=== PATIENT | male | born 1955 | race Caucasian/White ===

== ENCOUNTER 2020-09-01 14:28 | Inpatient (IN) | payer OTHER ==
[2020-09-01] MEDS ORDERED: NA CHLORIDE 0.9% 1,000 ML ONE (15:22)
[2020-09-01 15:25] LABS: Absolute Lymphocytes (CBC) 0.2 K/uL (0.7-4.9); Basophils % 0.2 % (0-1.3); Hematocrit 40.5 % (39.6-49.0); Lymphocytes % 1.3 % (15.3-44.8); MPV 9.2 fL (7.6-11.3)
--- NOTE | 2020-09-01 15:42 | RAD REPORT ---
EXAM DESCRIPTION: RAD - Chest Single View - 09/01/2020 3:32 pm CLINICAL HISTORY: CHEST PAIN Chest pain. COMPARISON: No comparisons FINDINGS: Portable and patient positioning technique limits examination quality. Poorly defined opacities are present in the left lung base which may represent atelectasis or develop ing pneumonia. Lucency beneath the right hemidiaphragm is likely related to interposed bowel. The hea rt is mildly prominent.Dedicated two views of the chest would be useful for better assessment given t he limitations of the study.
[2020-09-01 15:43] LABS: Protime INR 1.02
[2020-09-01 15:47] LABS: BUN Blood Urea Nitrogen 27 mg/dL (7-18); Bicarbonate 19 mmol/L (21-32); Glucose Level 170 mg/dL (74-106); Sodium Level 139 mmol/L (136-145)
[2020-09-01 15:48] LABS: ALT/SGPT 24 U/L (12-78); AST/SGOT 18 U/L (15-37); Albumin 2.7 g/dL (3.4-5.0); Alkaline Phosphatase 98 U/L (45-117); Bilirubin Direct 0.1 mg/dL (0-0.2); Bilirubin Total 0.4 mg/dL (0.2-1.0); Magnesium 1.9 mg/dL (1.8-2.4); NT PRO-BNP 297 pg/mL (<125); Protein, Total 7.2 g/dL (6.4-8.2); Troponin (Emerg Dept Use Only) < 0.02 ng/mL (0.0-0.045)
--- NOTE | 2020-09-01 16:38 | ER ---
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 L side, sharp, ca1 non-radiating, 08/20. Bilateral feet swelling started few days ago. Sinus tach in the monitor worker at 100 HR. BGL 187. Coronavirus screen: Client denies travel out of the [place] in the last 14 days. Client presents with at least one sign or symptom that may indicate coronavirus-19. Standard/surgical mask placed on the client. Provider contacted for isolation considerations. At this time, the client does not indicate any symptoms associated with coronavirus-19. Client reports previous positive COVID test result. Date of collection: August 04, 2020. Ebola Screen: Patient negative for fever greater than or equal to 101.5 degrees Fahrenheit, and additional compatible Ebola Virus Disease symptoms Patient denies exposure to infectious person. Patient denies travel to an Ebola-affected area in the 21 days before illness onset. No symptoms or risks identified at this time. Initial Sepsis Screen: Does the patient meet any 2 criteria? Systolic BP < 90 mmHg. HR > 90 bpm. Does the patient have a suspected source of infection? Yes: Skin breakdown/wound. Risk Assessment: Do you want to hurt yourself or someone else? Patient reports no desire to harm self or others. Onset of symptoms was September 01, 2020. 14:37 Method Of Arrival: EMS: [facility] ca1 14:37 Acuity: BRENDAN 2 ca1 Historical: - Allergies: 14:58 No Known Allergies; ca1 - Home Meds: 14:58 Arginaid oral oral [Active]; ascorbic acid (vitamin C) 500 mg tab [Active]; aspirin 81 ca1 mg Oral chew 1 tab once daily [Active]; Bactrim DS 800-160 mg Oral tab 1 tab 2 times per day [Active]; benzocaine mucous membrane mucous membrane [Active]; docusate sodium 100 mg Oral cap 1 cap once daily [Active]; Flonase 50 mcg/actuation Nasal spsn 2 sprays once daily [Active]; lidocaine patch [Active]; lisinopril 20 mg Oral tab 1 tab once daily [Active]; multivitamin with minerals oral tab [Active]; simvastatin 20 mg Oral tab 1 tab once daily [Active]; tramadol 50 mg Oral tab 1 tab every 8 hours [Active]; acetaminophen 325 mg Oral tab 2 tabs every 6 hours [Active]; zinc lozenges oral oral [Active]; Zofran (as hydrochloride) 4 mg Oral tab 1 tabs every 6 hours [Active]; - PMHx: 14:58 Hypertension; Hyperlipidemia; GERD; Cerebral Palsy; ca1 - Immunization history:: Adult Immunizations up to date. - Social history:: Smoking status: Patient denies any tobacco usage or history of. Screenin:49 Abuse screen: Denies threats or abuse. Denies injuries from another. Nutritional ca1 screening: No deficits noted. Tuberculosis screening: No symptoms or risk factors identified. Fall Risk Secondary diagnosis (15 points) impaired mobility, IV access (20 points). Ambulatory Aid- None/Bed Rest/Nurse Assist (0 pts). Gait- Impaired (20 pts.). Total Sharma Fall Scale indicates High Risk Score (45 or more points). Fall prevention measures have been instituted. Side Rails Up X 2 Frequent Obs/Assessments Occuring Family Present and informed to notify staff if the need to leave the bedside As available patient and family educated on Fall Prevention Program and Strategies. Assessment: 14:40 General: Appears in no apparent distress. uncomfortable, Behavior is calm, cooperative. ca1 Pain: Complains of pain in chest Pain does not radiate. Pain currently is 6 out of 10 on a pain scale. Pain began 30 min ago. Neuro: Level of Consciousness is awake, alert, obeys commands, Oriented to person. Cardiovascular: Heart tones S1 S2 present Capillary refill < 3 seconds Patient's skin is warm and dry. Rhythm is sinus tachycardia. Respiratory: Airway is patent Respiratory effort is even, unlabored, Respiratory pattern is regular, symmetrical, Breath sounds are clear bilaterally. GI: Abdomen is flat, non-distended, Bowel sounds present X 4 quads. Abd is soft and non tender X 4 quads. : No signs and/or symptoms were reported regarding the genitourinary system. EENT: No signs and/or symptoms were reported regarding the EENT system. Derm: Skin is thin, with poor turgor Pt has reddish scaly skin all over. States, "I have this all my life" Wound noted lateral side of left heel. Musculoskeletal: Circulation, motion, and sensation intact. Capillary refill < 3 seconds, Swelling present in right foot and left foot Contractures on isabell. feet and knees, bilateral wrist and elbows. 14:40 Reassessment: Called [facility] regarding pt HX of Covid. Nurse states, "pt ca1 tested for Covid , resulted positive 08/05/2020. Was in the Covid unit for 20 days, and was just discharged a week ago". Notified provider. Placed pt on Droplet Precaution. 15:45 Reassessment: Patient appears in no apparent distress at this time. No changes from ca1 previously documented assessment. Patient and/or family updated on plan of care and expected duration. Pain level reassessed. 16:35 Reassessment: Patient appears in no apparent distress at this time. No changes from ca1 previously documented assessment. Patient and/or family updated on plan of care and expected duration. Pain level reassessed. 17:00 Reassessment: Attempted to do straight cath F18 for Urine specimen. Resistance noted, ca1 unsuccessful. Hospitalist Dr. Smith at bedside, JORDAN Carrizales. Attempted to insert Carrizales Cath F16, resistance noted, unsuccessful. Dr. Smith at bedside notified. Dr. Smith states, "just don't do it now, we will do it upstairs". 17:40 Reassessment: Pt in radiology at this time. ca1 18:38 Reassessment: Patient appears in no apparent distress at this time. No changes from ca1 previously documented assessment. Patient and/or family updated on plan of care and expected duration. Pain level reassessed. Pt back from radiology. 19:12 Reassessment: BP low, notified provider. Instructed to do Manual BP, manual at 80/50. dm5 Notified provider. Remigio ORTEGA to give another NS 1L bolus, monitor BP q 10 then will insert central line if BP trends down. 19:36 Reassessment: Patient appears in no apparent distress at this time. No changes from ca1 previously documented assessment. Patient and/or family updated on plan of care and expected duration. Pain level reassessed. 20:35 Reassessment: Patient appears in no apparent distress at this time. No changes from ca1 previously documented assessment. Patient and/or family updated on plan of care and expected duration. Pain level reassessed. 09/02 00:15 Reassessment: Patient and/or family updated on plan of care and expected duration. Pain ea level reassessed. Report given Felipa AYERS. Pt admitted to ICU covid unit. Vital Signs: 09/01 14:37 BP 89 / 58; Pulse 105; Resp 20; Temp 99.3(O); Pulse Ox 94% on R/A; Weight 49.9 kg (R); ca1 Pain 08/20; 14:48 BP 95 / 58; Pulse 111; Resp 20 S; Pulse Ox 95% on R/A; ca1 15:45 BP 95 / 67; Pulse 110; Resp 20; Pulse Ox 94% on R/A; ca1 16:26 BP 90 / 65; Pulse 106; Resp 20 S; Pulse Ox 97% on R/A; ca1 17:11 BP 110 / 71; Pulse 108; Resp 21; Pulse Ox 98% on R/A; ca1 18:38 BP 91 / 62; Pulse 106; Resp 16 S; Pulse Ox 99% on R/A; ca1 18:45 BP 84 / 59; Pulse 106; Resp 18 S; Pulse Ox 98% on R/A; dm5 18:55 BP 86 / 62; Pulse 115; Resp 21 S; Pulse Ox 98% on R/A; dm5 19:01 BP 87 / 62; Pulse 105; Resp 20 S; Pulse Ox 96% on R/A; ca1 19:36 BP 123 / 66; Pulse 118; Resp 14 S; Pulse Ox 94% on R/A; ca1 19:45 BP 103 / 79; Pulse 111; Resp 18 S; Pulse Ox 95% on R/A; ca1 19:55 BP 82 / 54; Pulse 110; Resp 20 S; Pulse Ox 95% on R/A; ca1 20:10 BP 83 / 57; Pulse 110; Resp 17 S; Pulse Ox 97% on R/A; ca1 20:24 BP 98 / 62; Pulse 111; Resp 19 S; Pulse Ox 94% on R/A; ca1 ED Course: 14:37 Patient arrived in ED. em1 14:38 Remigio Cotton PA is PHCP. [facility] 14:38 Kumar Solano MD is Attending Physician. jmm 14:40 No provider procedures requiring assistance completed. Patient admitted, IV remains in ca1 place. 14:42 Sunni Browne, RN is Primary Nurse. ca1 14:45 Triage completed. ca1 14:46 Arm band placed on right wrist. ca1 14:47 Patient has correct armband on for positive identification. Placed in gown. Bed in low ca1 position. Call light in reach. Side rails up X2. phototypesetting equipment monitor on. Pulse ox on. NIBP on. Warm blanket given. 14:47 EKG done, by ED staff, reviewed by Kumar Solano MD. 5 15:15 Lactate Sent. 5 15:15 Procalcitonin Sent. 5 15:15 Basic Metabolic Panel Sent. 5 15:15 Blood Culture Adult (2) Sent. 5 15:15 CBC with Diff Sent. 5 15:15 LFT's Sent. 5 15:15 Magnesium Sent. 5 15:15 NT PRO-BNP Sent. 5 15:15 Initial lab(s) drawn, by ar, sent to lab. First set of blood cultures drawn by ar, [facility] Second set of blood cultures drawn by lab staff. 15:16 PT-INR Sent. 5 15:16 Troponin (emerg Dept Use Only) Sent. 5 15:16 Inserted saline lock: 22 gauge in left antecubital area, using aseptic technique. Blood 5 collected. 15:33 XRAY Chest (1 view) In Process Unspecified. EDMS 16:35 Inserted saline lock: 22 gauge in right forearm, using aseptic technique. ca1 16:37 Rico Smith is Hospitalizing Provider. jmm 17:25 Royer Cline MD is Hospitalizing Provider. jmm 18:21 Notified Nurse Practitioner and/or Physician Moving Picture Operator of a critical lab result(s), ca1 D-dimer 65111. 20:13 Notified Nurse Practitioner and/or Physician Moving Picture Operator of a critical lab result(s), ca1 Lactate Rpt 7.1. 20:37 Report given to ARMEN Mcmahon. ca1 09/02 01:47 Attending Physician role handed off by Kumar Solano MD rv 01:47 PHCP role handed off by Remigio Cotton PA rv 01:47 Primary Nurse role handed off by Sunni Browne, ARMEN rv Administered Medications: 09/01 15:16 Drug: NS 0.9% 1000 ml Route: IV; Rate: 1 bolus; Site: left forearm; ca1 16:15 Follow up: Response: No adverse reaction; IV Status: Completed infusion; IV Intake: ca1 1000ml 16:35 Not Given (Duplicate Order): AZITHromycin 500 mg PO once jmm 16:36 Not Given (Duplicate Order): Rocephin - (cefTRIAXone) 1 grams IVPB once over 30 mins; alfredo (mix in 50 mL NS) 16:37 Drug: LevaQUIN 750 mg Volume: 150 ml; Route: IVPB; Infused Over: 90 mins; Site: right ca1 forearm; 22:22 Follow up: IV Status: Completed infusion; IV Intake: 150ml rv 16:38 Drug: NS 0.9% 500 ml Route: IV; Rate: bolus; Site: right forearm; ca1 20:15 Follow up: IV Status: Completed infusion; IV Intake: 500ml ca1 19:11 Drug: NS 0.9% 1000 ml Route: IV; Rate: 1 bolus; Site: right forearm; dm5 22:23 Follow up: IV Status: Completed infusion; IV Intake: 1000ml rv 20:26 Drug: Lovenox 50 mg Route: Sub-Q; Site: right lower abdomen; ca1 22:22 Follow up: Response: No adverse reaction rv 20:54 Drug: vancoMYCIN 1 grams Route: IVPB; Infused Over: 2 hrs; Site: right forearm; ca1 22:22 Follow up: IV Status: Completed infusion; IV Intake: 250ml rv Intake: 16:15 IV: 1000ml; Total: 1000ml. ca1 20:15 IV: 500ml; Total: 1500ml. ca1 22:22 IV: 250ml; Total: 1750ml. rv 22:22 IV: 150ml; Total: 1900ml. rv 22:23 IV: 1000ml; Total: 2900ml. rv Outcome: 16:37 Decision to Hospitalize by Provider. jmm 22:23 Admitted to ER Hold. Please see [facility] for further documentation. rv 22:23 Condition: good 22:23 Instructed on the need for admit. 09/02 01:27 Patient left the ED. casey 02:10 Patient left the ED. rv Signatures: Dispatcher [employer] Natalie Pepper, RN RN dm5 Remigio Cotton PA PA jmm Ballard, Brenda, RN RN bb Martinez, Guerrero em1 Francesco, Sandrita 5 Yaneli Apodaca RN Reece Puente ea, RN ARMEN rv Acob, Sunni RN RN ca1 Corrections: (The following items were deleted from the chart) 09/01 14:48 14:37 Initial Sepsis Screen: Does the patient meet any 2 criteria? No. Patient's ca1 initial sepsis screen is negative. Does the patient have a suspected source of infection? No. Patient's initial sepsis screen is negative. ca1 14:48 14:37 Pulse 105bpm; Resp 20bpm; Pulse Ox 94% RA; Temp 99.3F Oral; 49.9 kg Reported; ca1 Pain 10/10; ca1 14:49 14:37 Acuity: BRENDAN 3 ca1 ca1 14:49 14:48 BP 95 / 58; Pulse 111bpm; Resp 21bpm; Pulse Ox 95% RA; ca1 ca1 15:04 14:37 Coronavirus screen: Client denies travel out of the [place] in the last 14 days. At ca1 this time, the client does not indicate any symptoms associated with coronavirus-19. The client reports previous COVID testing was negative. Date of collection: August 2020 ca1 20:38 14:40 Neuro: Level of Consciousness is awake, alert, obeys commands, Oriented to ca1 person, place, ca1 20:38 14:40 Musculoskeletal: Circulation, motion, and sensation intact. Capillary refill < 3 ca1 seconds, Contractures on isabell. feet and knees, bilateral wrist and elbows ca1
--- NOTE | 2020-09-01 16:38 | EDPHYS ---
Physician Documentation [facility] Name: Gabriel Krishnamurthy Age: 65 yrs Sex: Male : 1955 Arrival Date: 09/01/2020 Time: 14:37 Bed 4 Private MD: ED Physician HPI: 09/01 14:46 This 65 yrs old Male presents to ER via EMS with complaints of Chest Pain. [facility] 14:46 The patient or guardian reports chest pain that is located primarily in the substernal [facility] area. Onset: just prior to arrival, today. The pain does not radiate. The chest pain is described as aching, sharp. This is a 65 year old male with a history of cerebral palsy that presents to the ED with complaints of left sided chest pain beginning approx 30 minutes prior to arrival. Patient diagnosed with COVID in late Jul. . Historical: - Allergies: 14:58 No Known Allergies; ca1 - Home Meds: 14:58 Arginaid oral oral [Active]; ascorbic acid (vitamin C) 500 mg tab [Active]; aspirin 81 ca1 mg Oral chew 1 tab once daily [Active]; Bactrim DS 800-160 mg Oral tab 1 tab 2 times per day [Active]; benzocaine mucous membrane mucous membrane [Active]; docusate sodium 100 mg Oral cap 1 cap once daily [Active]; Flonase 50 mcg/actuation Nasal spsn 2 sprays once daily [Active]; lidocaine patch [Active]; lisinopril 20 mg Oral tab 1 tab once daily [Active]; multivitamin with minerals oral tab [Active]; simvastatin 20 mg Oral tab 1 tab once daily [Active]; tramadol 50 mg Oral tab 1 tab every 8 hours [Active]; acetaminophen 325 mg Oral tab 2 tabs every 6 hours [Active]; zinc lozenges oral oral [Active]; Zofran (as hydrochloride) 4 mg Oral tab 1 tabs every 6 hours [Active]; - PMHx: 14:58 Hypertension; Hyperlipidemia; GERD; Cerebral Palsy; ca1 - Immunization history:: Adult Immunizations up to date. - Social history:: Smoking status: Patient denies any tobacco usage or history of. ROS: 14:46 Constitutional: Negative for fever, chills, and weight loss. jmm 14:46 Respiratory: Negative for shortness of breath, cough, wheezing, and pleuritic chest pain, Neuro: Negative for headache, weakness, numbness, tingling, and seizure. 14:46 Constitutional: Positive for 14:46 Cardiovascular: Positive for chest pain. 14:46 All other systems are negative. Exam: 14:46 Head/Face: atraumatic. Eyes: EOMI, no conjunctival erythema appreciated ENT: Moist jmm Mucus Membranes Neck: Trachea midline, Supple Chest/axilla: Normal chest wall appearance and motion. Cardiovascular: Regular rate and rhythm. No edema appreciated Respiratory: Normal respirations, no respiratory distress appreciated Abdomen/GI: Non distended, soft Back: Normal ROM 14:46 Constitutional: The patient appears alert, awake, uncomfortable. 14:46 Musculoskeletal/extremity: bilaterally edema noted to the feet. 14:46 Skin: diffuse erythema noted to the skin with peeling. 14:46 Neuro: Orientation: is normal, Mentation: is normal. 14:46 Psych: Behavior/mood is pleasant, cooperative. Vital Signs: 14:37 BP 89 / 58; Pulse 105; Resp 20; Temp 99.3(O); Pulse Ox 94% on R/A; Weight 49.9 kg (R); ca1 Pain 10/10; 14:48 BP 95 / 58; Pulse 111; Resp 20 S; Pulse Ox 95% on R/A; ca1 15:45 BP 95 / 67; Pulse 110; Resp 20; Pulse Ox 94% on R/A; ca1 16:26 BP 90 / 65; Pulse 106; Resp 20 S; Pulse Ox 97% on R/A; ca1 17:11 BP 110 / 71; Pulse 108; Resp 21; Pulse Ox 98% on R/A; ca1 18:38 BP 91 / 62; Pulse 106; Resp 16 S; Pulse Ox 99% on R/A; ca1 18:45 BP 84 / 59; Pulse 106; Resp 18 S; Pulse Ox 98% on R/A; dm5 18:55 BP 86 / 62; Pulse 115; Resp 21 S; Pulse Ox 98% on R/A; dm5 19:01 BP 87 / 62; Pulse 105; Resp 20 S; Pulse Ox 96% on R/A; ca1 19:36 BP 123 / 66; Pulse 118; Resp 14 S; Pulse Ox 94% on R/A; ca1 19:45 BP 103 / 79; Pulse 111; Resp 18 S; Pulse Ox 95% on R/A; ca1 19:55 BP 82 / 54; Pulse 110; Resp 20 S; Pulse Ox 95% on R/A; ca1 20:10 BP 83 / 57; Pulse 110; Resp 17 S; Pulse Ox 97% on R/A; ca1 20:24 BP 98 / 62; Pulse 111; Resp 19 S; Pulse Ox 94% on R/A; ca1 MDM: 14:46 Patient medically screened. [facility] 16:36 Data reviewed: vital signs, nurses notes. Counseling: I had a detailed discussion with [facility] the patient and/or guardian regarding: the historical points, exam findings, and any diagnostic results supporting the discharge/admit diagnosis, lab results, radiology results, the need for outpatient follow up. ED course: I discussed the patient with Dr. Smith whom accepted the patient for admission. . 17:34 ED course: I discussed the patient with Dr. Cline whom accepted admission. . [facility] 09/01 14:47 Order name: Basic Metabolic Panel; Complete Time: 15:49 [facility] 09/01 14:47 Order name: CBC with Diff; Complete Time: 17:51 [facility] 09/01 14:47 Order name: LFT's; Complete Time: 15:49 [facility] 09/01 14:47 Order name: Magnesium; Complete Time: 15:49 [facility] 09/01 14:47 Order name: NT PRO-BNP; Complete Time: 15:49 [facility] 09/01 14:47 Order name: PT-INR; Complete Time: 18:50 [facility] 09/01 14:47 Order name: Troponin (emerg Dept Use Only); Complete Time: 15:49 [facility] 09/01 15:03 Order name: Blood Culture Adult (2) [facility] 09/01 15:04 Order name: Procalcitonin; Complete Time: 16:17 [facility] 09/01 15:04 Order name: Lactate; Complete Time: 20:18 [facility] 09/01 15:18 Order name: Glucose, Ancillary Testing; Complete Time: 15:20 [facility] 09/01 17:22 Order name: D-Dimer [facility] 09/01 17:23 Order name: Manual Differential; Complete Time: 17:51 [facility] 09/01 17:24 Order name: COVID-19 [facility] 09/01 14:47 Order name: XRAY Chest (1 view); Complete Time: 15:49 [facility] 09/01 17:22 Order name: US Extremity Venous W Compression Lonny: lower [facility] 09/01 17:25 Order name: CT Chest Wo Con [facility] 09/01 17:49 Order name: CT; Complete Time: 17:51 EDMS 09/01 18:24 Order name: D-Dimer; Complete Time: 18:50 EDMS 09/01 20:13 Order name: Lactate Sepsis 2 HR Follow-up; Complete Time: 20:18 EDMS 09/01 20:17 Order name: Vancomycin Level Trough; Complete Time: 20:18 EDMS 09/01 20:21 Order name: Troponin I; Complete Time: 20:28 EDMS 09/01 20:54 Order name: US; Complete Time: 21:00 [facility]SC 09/01 21:11 Order name: SARS-COV-2 RT PCR; Complete Time: 21:21 [facility] 09/02 01:59 Order name: Troponin I [facility] 09/01 14:47 Order name: EKG; Complete Time: 14:48 [facility] 09/01 14:47 Order name: Cardiac monitoring; Complete Time: 15:06 [facility] 09/01 14:47 Order name: EKG - Nurse/Tech; Complete Time: 15:06 [facility] 09/01 14:47 Order name: IV Saline Lock; Complete Time: 15:06 [facility] 09/01 14:47 Order name: Labs collected and sent; Complete Time: 15:06 [facility] 09/01 14:47 Order name: O2 Per Protocol; Complete Time: 15:06 [facility] 09/01 14:47 Order name: O2 Sat Monitoring; Complete Time: 15:06 [facility] Administered Medications: 15:16 Drug: NS 0.9% 1000 ml Route: IV; Rate: 1 bolus; Site: left forearm; ca1 16:15 Follow up: Response: No adverse reaction; IV Status: Completed infusion; IV Intake: ca1 1000ml 16:35 Not Given (Duplicate Order): AZITHromycin 500 mg PO once [facility] 16:36 Not Given (Duplicate Order): Rocephin - (cefTRIAXone) 1 grams IVPB once over 30 mins; alfredo (mix in 50 mL NS) 16:37 Drug: LevaQUIN 750 mg Volume: 150 ml; Route: IVPB; Infused Over: 90 mins; Site: right ca1 forearm; 22:22 Follow up: IV Status: Completed infusion; IV Intake: 150ml rv 16:38 Drug: NS 0.9% 500 ml Route: IV; Rate: bolus; Site: right forearm; ca1 20:15 Follow up: IV Status: Completed infusion; IV Intake: 500ml ca1 19:11 Drug: NS 0.9% 1000 ml Route: IV; Rate: 1 bolus; Site: right forearm; dm5 22:23 Follow up: IV Status: Completed infusion; IV Intake: 1000ml rv 20:26 Drug: Lovenox 50 mg Route: Sub-Q; Site: right lower abdomen; ca1 22:22 Follow up: Response: No adverse reaction rv 20:54 Drug: vancoMYCIN 1 grams Route: IVPB; Infused Over: 2 hrs; Site: right forearm; ca1 22:22 Follow up: IV Status: Completed infusion; IV Intake: 250ml rv Disposition: 09/02 14:35 Co-signature as Attending Physician, Kumar Solano MD I agree with the assessment and kdr plan of care. Disposition: 09/01/20 16:37 Hospitalization ordered by Royer Cline for Inpatient Admission. Preliminary diagnosis are Pneumonia, Chest Pain, Sepsis. - Bed requested for Intensive Care Unit. - Status is Inpatient Admission. rv - Condition is Stable. - Problem is new. - Symptoms are unchanged. Signatures: Dispatcher [employer] Natalie Pepper, RN RN dm5 Kumar Solano MD MD [facility] Remigio Cotton PA PA [facility] Verena Ta RN ARMEN bb Meliza Stover RN RN aa5 Cadence Cotton RN ARMEN Kye Alexander MD MD tw4 Reece Shrestha RN RN rv AcobSunni RN RN ca1 Corrections: (The following items were deleted from the chart) 09/01 17:25 16:37 Hospitalization Ordered by Rico Smith for Inpatient Admission. Preliminary [facility] diagnosis is Pneumonia; Chest Pain; Sepsis. Bed requested for Telemetry/MedSurg (Inpatient). Status is Inpatient Admission. Condition is Stable. Problem is new. Symptoms are unchanged. [facility] 22:05 17:25 09/01/2020 16:37 Hospitalization Ordered by Royer Cline MD for Inpatient cg Admission. Preliminary diagnosis is Pneumonia; Chest Pain; Sepsis. Bed requested for Telemetry/MedSurg (Inpatient). Status is Inpatient Admission. Condition is Stable. Problem is new. Symptoms are unchanged. jmm 22:22 21:22 Carrizales ordered. tw4 rv 23:17 22:05 09/01/2020 16:37 Hospitalization Ordered by Royer Cline MD for Inpatient cg Admission. Preliminary diagnosis is Pneumonia; Chest Pain; Sepsis. Bed requested for [facility] ER HOLD. Status is Inpatient Admission. Condition is Stable. Problem is new. Symptoms are unchanged. 09/02 01:27 09/01 23:17 09/01/2020 16:37 Hospitalization Ordered by Royer Cline MD for Inpatient bb Admission. Preliminary diagnosis is Pneumonia; Chest Pain; Sepsis. Bed requested for Intensive Care Unit. Status is Inpatient Admission. Condition is Stable. Problem is new. Symptoms are unchanged. 09/02 02:10 01:27 09/01/2020 16:37 Hospitalization Ordered by Royer Cline MD for Inpatient rv Admission. Preliminary diagnosis is Pneumonia; Chest Pain; Sepsis. Bed requested for Intensive Care Unit. Status is Inpatient Admission. Condition is Stable. Problem is new. Symptoms are unchanged. bb
[2020-09-01] MEDS ORDERED: NA CHLORIDE 0.9% 500 ML ONE (16:45)
[2020-09-01] MEDS ORDERED: CEFTRIAXONE/SWI 1gm 0 GM/0 ML SYR ONE (16:45)
[2020-09-01] MEDS ORDERED: Levofloxacin 750mg IV 750 MG/150 ML BAG IV ONE (16:51)
[2020-09-01 17:23] LABS: Blood Morphology Comment NOT SEEN (NOT SEEN); Platelet Estimate ADEQ
[2020-09-01] MEDS ORDERED: ALBUTEROL 2.5 MG/3 ML NEB SOL NEB PRN (17:40)
[2020-09-01] MEDS ORDERED: ONDANSETRON 4 MG/2 ML VIAL IV PRN (17:40)
[2020-09-01] MEDS ORDERED: IPRATROPIUM BROM 0.5MG/2.5ML NEB PRN (17:40)
--- NOTE | 2020-09-01 17:48 | RAD REPORT ---
EXAM DESCRIPTION: CT - Thorax Wo Con CLINICAL HISTORY: Chest pain pneumonia COMPARISON: Chest Single View dated 09/01/2020 FINDINGS: Elevated right hemidiaphragm is seen with colonic interposition present. Linear opacities are present in the left lung base may represent atelectasis or developing infiltrate. No pleural thic kening or pleural effusion. No pneumothorax. Mild esophageal distention is seen. No axillary, mediastinal or hilar adenopathy. No concerning bony finding. Cholelithiasis. All CT scans are performed using dose optimization technique as appropriate and may include automated exposure control or mA/KV adjustment according to patient size. IMPRESSION: Mild linear opacities in left lung base may represent subsegmental atelectasis or small infiltrate. Cholelithiasis.
[2020-09-01] MEDS: VANCOMYCIN 1.25 GM in NA CHLORIDE 0.9% 250 ML IVPB SCH (18:00)
[2020-09-01] MEDS: NA CHLORIDE 0.9% 1,000 ML IV SCH (18:00)
[2020-09-01] MEDS ORDERED: ENOXAPARIN 60 MG/0.6 ML SQ ONE (19:58)
--- NOTE | 2020-09-01 20:52 | RAD REPORT ---
EXAM DESCRIPTION: US - Extrem Venous W Compress Lonny - 09/01/2020 8:47 pm CLINICAL HISTORY: SWELLING Bilateral leg edema and swelling. COMPARISON: No comparisons TECHNIQUE: Real-time sonographic interrogation of the left and right lower extremity deep venous sys tems was performed. FINDINGS: Normal compressibility, flow augmentation, phasic flow and spontaneous flow is identified in both the left and right lower extremity deep venous systems. IMPRESSION: No sonographic evidence of left or right lower extremity deep venous thrombosis.
[2020-09-01] MEDS ORDERED: VANCOMYCIN 1 GM/VIAL ONE (20:58)
[2020-09-01] MEDS ORDERED: NA CHLORIDE 0.9% 250 ML ONE (20:58)
[2020-09-01] MEDS ORDERED: LIDOCAINE VISCOUS 2% SOLN 15 ML UDC ONE (22:24)
--- NOTE | 2020-09-01 22:31 | P.HP ---
Certification for Inpatient Patient admitted to: Inpatient With expected LOS: >2 Midnights Patient will require the following post-hospital care: [facility] Practitioner: I am a practitioner with admitting privileges, knowledge of patient current condition, hospital course, and medical plan of care. Services: Services provided to patient in accordance with Admission requirements found in Title 42 Section 412.3 of the Code of Federal Regulations Patient History Date of Service: 09/01/20 Primary Care Provider: Marlyn Reason for admission: possible covid infection History of Present Illness: Patient of mine residing in [facility]. He has a history of recent covid infection. Was in the isolation unit for 14 days without any symptoms. Today he started complaining about leg and chest pain. He was found to be tachycardic and sent to the ER. The patient was found to be hypotensive and had an elevated blood count in the ER. With acute renal failure and a very elevated d-dimer. He still tested positive for covid. He has a hisotory of cerebral palsy. The patient had a negative doppler of the legs. Home medications list reviewed: Yes Review of Systems is unable to be obtained (patient compaints of pain in the legs and chest at the senior care. He is difficult to understand as he has cerebral palsy) Physical Examination - Physical Exam General: Alert, In no apparent distress HEENT: Atraumatic, PERRLA, Mucous membr. moist/pink, EOMI, Sclerae nonicteric Neck: Supple, 2+ carotid pulse no bruit, No LAD, Without JVD or thyroid abnorma lity Respiratory: Clear to auscultation bilaterally, Normal air movement Cardiovascular: Regular rate/rhythm, Normal S1 S2, Edema Gastrointestinal: Normal bowel sounds, No tenderness Musculoskeletal: No tenderness Integumentary: No rashes, Erythema (of the lower extremities), Warmth Neurological: Normal speech, Normal affect - Studies Laboratory Data (last 24 hrs) 09/01/20 15:08: PT 12.0, INR 1.02 09/01/20 15:08: WBC 17.4 H, Hgb 13.4 L, Hct 40.5, Plt Count 253 09/01/20 15:08: Sodium 139, Potassium 5.0, BUN 27 H, Creatinine 2.51 H, Glucose 170 H, Magnesium 1.9, Total Bilirubin 0.4, AST 18, ALT 24, Alkaline Phosphatase 98 Assessment and Plan - Problems (Diagnosis) (1) COVID-19 Current Visit: Yes Status: Acute Plan: he may be having covid. CXR is not very diagnostic. However he has the acute renal failure and htn. As well as a elevated wbc. Have discussed the patient with Dr. Cooper. Will start with aggressive fluid hydration. As well as steroids and vanc and levaquin. Will use full dose enoxaparin to prevent aggressive blood clots. (2) HTN (hypertension) Current Visit: Yes Status: Acute Plan: hold bp meds due to current hypotension. Qualifiers: Hypertension type: essential hypertension Qualified Code(s): I10 - Essential (primary) hypertension (3) Cerebral palsy Current Visit: Yes Status: Acute Plan: Mostly wheelchair bound. the patient is stable from this standpoint Qualifiers: Cerebral palsy type: spastic diplegic Qualified Code(s): G80.1 - Spastic diplegic cerebral palsy Discharge Plan: Group Home Plan to discharge in: Greater than 2 days - Advance Directives Does patient have a Living Will: No Does patient have a Durable POA for Healthcare: No - Code Status/Comfort Care Code Status Assessed: Yes Code Status: Full Code Physician Review: Patient Assessed, Agree with Above Assessment and Plan Critical Care: Yes Time Spent Managing Pts Care (In Minutes): 75
[2020-09-01] MEDS: METHYLPRED NA SUC 40 MG in NA CHLORIDE 0.9% 100 ML IV SCH (22:35)
[2020-09-01] MEDS ORDERED: METHYLPREDNISOLONE 40 MG INJ ONE (22:45)
[2020-09-02] MEDS: NA CHLORIDE 0.9% 1,000 ML IV SCH ×4 (02:00→10:00)
[2020-09-02] MEDS: ACETAMINOPHEN 500 MG TAB PO PRN (03:13)
[2020-09-02] MEDS: METHYLPRED NA SUC 40 MG in NA CHLORIDE 0.9% 100 ML IV SCH ×2 (03:28→09:00)
[2020-09-02] MEDS ORDERED: METHYLPREDNISOLONE 40 MG INJ ONE (03:37)
[2020-09-02] MEDS ORDERED: NA CHLORIDE 0.9% 100 ML ONE (03:37)
[2020-09-02 05:51] LABS: Absolute Lymphocytes (CBC) 0.3 K/uL (0.7-4.9); Basophils % 0.4 % (0-1.3); MPV 9.4 fL (7.6-11.3); RBC Red Blood Cell Count 3.28 M/uL (4.33-5.43)
[2020-09-02] MEDS: VANCOMYCIN 1.25 GM in NA CHLORIDE 0.9% 250 ML IVPB SCH (06:00)
--- NOTE | 2020-09-02 09:58 | P.PN ---
Subjective Date of Service: 09/02/20 Primary Care Provider: Marlyn Chief Complaint: possible covid infection Subjective: Improving (bp stabilized.) Review of Systems is unable to be obtained (Patient is not able to express himself well. This is chronic condition) Physical Examination - Vital Signs Temperature: 99.7 F Blood Pressure: 107/77 Pulse: 81 Respirations: 22 Pulse Ox (%): 93 - Physical Exam General: Alert, In no apparent distress HEENT: Atraumatic, PERRLA, EOMI Neck: Supple, JVD not distended Respiratory: Clear to auscultation bilaterally, Normal air movement Cardiovascular: Regular rate/rhythm, Normal S1 S2 Gastrointestinal: Normal bowel sounds, No tenderness Musculoskeletal: No tenderness Integumentary: Rash(es), Erythema, Warmth, Other (reddness and sluffing of the skin of the legs and arms) Neurological: Normal speech, Normal tone, Normal affect Lymphatics: No axilla or inguinal lymphadenopathy - Studies Laboratory Data (last 24 hrs) 09/01/20 15:08: PT 12.0, INR 1.02 09/01/20 15:08: WBC 17.4 H, Hgb 13.4 L, Hct 40.5, Plt Count 253 09/01/20 15:08: Sodium 139, Potassium 5.0, BUN 27 H, Creatinine 2.51 H, Glucose 170 H, Magnesium 1.9, Total Bilirubin 0.4, AST 18, ALT 24, Alkaline Phosphatase 98 Assessment & Plan - Problems (Diagnosis) (1) Cellulitis Current Visit: Yes Status: Acute Plan: Patient has diffuse cellulitis. Will keep him on vancomycin if this is stap skin syndrome or tss Qualifiers: Site of cellulitis: extremity Site of cellulitis of extremity: lower extremity Laterality: unspecified laterality Qualified Code(s): L03.119 - Cellulitis of unspecified part of limb (2) Acute on chronic renal failure Current Visit: Yes Status: Acute Plan: Improving slightly with fluids. Will consult Dr Mccartney. Needs a cee as there is an obstruction. Hold fluids till we can get a cee. Will consider a urology consult Qualifiers: Chronic kidney disease stage: stage 2 (mild) (3) COVID-19 Current Visit: Yes Status: Acute Plan: he may be having covid. CXR is not very diagnostic. However he has the acute renal failure and htn. As well as a elevated wbc. Have discussed the patient with Dr. Cooper. Will start with aggressive fluid hydration. As well as steroids and vanc and levaquin. Will use full dose enoxaparin to prevent aggressive blood clots. 09/02 Have decreased the dosage of his levaquin and enoxparin per pharmacy dosing recomendations. (4) Cerebral palsy Current Visit: Yes Status: Acute Plan: Mostly wheelchair bound. the patient is stable from this standpoint Qualifiers: Cerebral palsy type: spastic diplegic Qualified Code(s): G80.1 - Spastic diplegic cerebral palsy (5) HTN (hypertension) Current Visit: Yes Status: Acute Plan: hold bp meds due to current hypotension. Qualifiers: Hypertension type: essential hypertension Qualified Code(s): I10 - Essential (primary) hypertension Discharge Plan: [facility] Plan to discharge in: Greater than 2 days - Code Status/Comfort Care Code Status Assessed: No Physician Review: Patient Assessed, Agree with Above Assessment and Plan Critical Care: Yes Time Spent Managing Pts Care (In Minutes): 45
[2020-09-02] MEDS ORDERED: VANCOMYCIN/NS 1 gm 1 GM/250 ML BAG IV SCH (10:00)
[2020-09-02] MEDS ORDERED: METHYLPREDNISOLONE 40 MG INJ IV SCH (10:15)
--- NOTE | 2020-09-02 12:13 | P.CNS ---
Date of Consult: 09/02/20 Reason for Consult: Sepsis hypotension positive for serrato virus Primary Care Provider: Marlyn Chief Complaint: possible covid infection History of Present Illness: Patient is 65 years of age a [facility] resident with a history of serrato virus infection diagnosed 14 days ago started complaining of leg in chest pain was found to be tachycardic hypotensive abnormal labs and he was admitted to the ICU currently doing well he has a scaly generalized rash which is worsened since his admission Patient does not appear to be any discomfort admitted with abnormal renal function Allergies No Known Allergies Allergy (Verified 09/02/20 06:55) Home Medications: Acetaminophen [Tylenol] 325 mg PO Q6HP PRN 09/02/20 Arginine/Ascorbate Sod/David AC [Arginaid Powder] 1 packet PO BID 09/02/20 Ascorbic Acid [C-500] 500 mg PO BID 09/02/20 Ascorbic Acid/Zinc [Zinc Lozenges] 1 lozenge PO Q6HP PRN 09/02/20 Aspirin Chewable [Aspirin Chewable*] 81 mg PO DAILY 09/02/20 Benzocaine [Oral Pain Relief] 1 susana PO Q4HP PRN 09/02/20 Docusate [Colace Cap*] 100 mg PO DAILY 09/02/20 Fluticasone [Flonase 50MCG Nasal [place]*] 2 sprays IH DAILYPRN PRN 09/02/20 Lidocaine 4% Patch [Lidoderm 5% Patch*] 1 patch TOP DAILY 09/02/20 Lisinopril [Zestril] 20 mg PO DAILY 09/02/20 Multivitamin [Multiple Vitamins] 1 tab PO DAILY 09/02/20 Ondansetron [Zofran (Odt)*] 4 mg PO Q6HP PRN 09/02/20 Simvastatin 20 mg PO DAILY 09/02/20 Smz./Tmp. [Bactrim Ds 800 MG/160 MG*] 1 tab PO BID 09/02/20 traMADol HCL [Ultram*] 50 mg PO Q8HP PRN 09/02/20 - Past Medical/Surgical History -: Hypertension -: Hyperlipidemia -: Cerebral palsy Review of Systems is unable to be obtained Physical Examination Temp Pulse Resp BP Pulse Ox 99.7 F 93 H 95 H 96/58 L 95 09/02/20 10:03 09/02/20 11:00 09/02/20 11:00 09/02/20 11:00 09/02/20 11:00 General: Alert Respiratory: Clear to auscultation bilaterally Cardiovascular: Regular rate/rhythm, Edema Integumentary: Other (Patient has a generalize scaly exfoliative fracture throughout the last limbs in his torso) Laboratory Data (last 24 hrs) 09/01/20 15:08: PT 12.0, INR 1.02 09/01/20 15:08: WBC 17.4 H, Hgb 13.4 L, Hct 40.5, Plt Count 253 09/01/20 15:08: Sodium 139, Potassium 5.0, BUN 27 H, Creatinine 2.51 H, Glucose 170 H, Magnesium 1.9, Total Bilirubin 0.4, AST 18, ALT 24, Alkaline Phosphatase 98 - Problems (1) Shock Current Visit: Yes Status: Acute Plan: Patient is 65 years of age with a history of serrato virus infection admitted with hypotension patient has acute on chronic renal failure CRP lactic acid elevated D-dimer he is a over 20,000 patient's white count is elevated agree with levofloxacin vancomycin in IV steroids fluid resuscitation chest CT scan shows minimal inflammatory changes of the left lower lobe no evidence of DVT continue with full therapeutic anticoagulation patient's CRP level is 108 patient's oxygenation is satisfactory is 94% on room air
--- NOTE | 2020-09-02 12:21 | P.CNS ---
Date of Consult: 09/02/20 Reason for Consult: BAILEY Requesting Physician: Royer Cline Primary Care Provider: Marlyn Chief Complaint: possible covid infection History of Present Illness: 65 yo WM, CP presented to the ER with moderate, persistent hypotension in the setting of a recent COVID19 infection complicated by urinary retention and BAILEY. Limited HPI/ ROS due to CP related dysphasia. Gabriel Krishnamurthy has a history of recent covid infection. Was in the isolation unit for 14 days without any symptoms. Today he started complaining about leg and chest pain. He was found to be tachycardic and sent to the ER. The patient was found to be hypotensive and had an elevated blood count in the ER. With acute renal failure and a very elevated d-dimer. He still tested positive for covid. He has a hisotory of cerebral palsy. The patient had a negative doppler of the legs. 14:46 This 65 yrs old Male presents to ER via EMS with complaints of Chest Pain. [facility] 14:46 The patient or guardian reports chest pain that is located primarily in the substernal [facility] area. Onset: just prior to arrival, today. The pain does not radiate. The chest pain is described as aching, sharp. This is a 65 year old male with a history of cerebral palsy that presents to the ED with complaints of left sided chest pain beginning approx 30 minutes prior to arrival. Patient diagnosed with COVID in late Jul. Allergies No Known Allergies Allergy (Verified 09/02/20 06:55) Home medications list reviewed: Yes Home Medications: Acetaminophen [Tylenol] 325 mg PO Q6HP PRN 09/02/20 Arginine/Ascorbate Sod/David AC [Arginaid Powder] 1 packet PO BID 09/02/20 Ascorbic Acid [C-500] 500 mg PO BID 09/02/20 Ascorbic Acid/Zinc [Zinc Lozenges] 1 lozenge PO Q6HP PRN 09/02/20 Aspirin Chewable [Aspirin Chewable*] 81 mg PO DAILY 09/02/20 Benzocaine [Oral Pain Relief] 1 susana PO Q4HP PRN 09/02/20 Docusate [Colace Cap*] 100 mg PO DAILY 09/02/20 Fluticasone [Flonase 50MCG Nasal [place]*] 2 sprays IH DAILYPRN PRN 10/23/20 Lidocaine 4% Patch [Lidoderm 5% Patch*] 1 patch TOP DAILY 09/02/20 Lisinopril [Zestril] 20 mg PO DAILY 09/02/20 Multivitamin [Multiple Vitamins] 1 tab PO DAILY 09/02/20 Ondansetron [Zofran (Odt)*] 4 mg PO Q6HP PRN 09/02/20 Simvastatin 20 mg PO DAILY 09/02/20 Smz./Tmp. [Bactrim Ds 800 MG/160 MG*] 1 tab PO BID 09/02/20 traMADol HCL [Ultram*] 50 mg PO Q8HP PRN 09/02/20 - Past Medical/Surgical History -: Hypertension -: Hyperlipidemia -: Cerebral palsy Review of Systems 10-point ROS is otherwise unremarkable Integumentary: Rash Physical Examination Temp Pulse Resp BP Pulse Ox 99.7 F 93 H 95 H 96/58 L 95 09/02/20 10:03 09/02/20 11:00 09/02/20 11:00 09/02/20 11:00 09/02/20 11:00 General: In no apparent distress, Cooperative HEENT: Atraumatic Neck: Supple Respiratory: Clear to auscultation bilaterally Cardiovascular: No edema, Regular rate/rhythm Gastrointestinal: Soft and benign, Non-distended Musculoskeletal: No clubbing, Contractures Integumentary: No cyanosis, Rash(es) Neurological: Abnormal speech, Abnormal tone Urinary: Cee catheter Laboratory Data (last 24 hrs) 09/01/20 15:08: PT 12.0, INR 1.02 09/01/20 15:08: WBC 17.4 H, Hgb 13.4 L, Hct 40.5, Plt Count 253 09/01/20 15:08: Sodium 139, Potassium 5.0, BUN 27 H, Creatinine 2.51 H, Glucose 170 H, Magnesium 1.9, Total Bilirubin 0.4, AST 18, ALT 24, Alkaline Phosphatase 98 Imagings Data: EXAM DESCRIPTION: CT - Thorax Wo Con CLINICAL HISTORY: Chest pain pneumonia COMPARISON: Chest Single View dated 09/01/2020 FINDINGS: Elevated right hemidiaphragm is seen with colonic interposition present. Linear opacities are present in the left lung base may represent atelectasis or developing infiltrate. No pleural thickening or pleural effusion. No pneumothorax. Mild esophageal distention is seen. No axillary, mediastinal or hilar adenopathy. No concerning bony finding. Cholelithiasis. All CT scans are performed using dose optimization technique as appropriate and may include automated exposure control or mA/KV adjustment according to patient size. IMPRESSION: Mild linear opacities in left lung base may represent subsegmental atelectasis or small infiltrate. Cholelithiasis. EXAM DESCRIPTION: RAD - Chest Single View - 09/01/2020 3:32 pm CLINICAL HISTORY: CHEST PAIN Chest pain. COMPARISON: No comparisons FINDINGS: Portable and patient positioning technique limits examination quality. Poorly defined opacities are present in the left lung base which may represent atelectasis or developing pneumonia. Lucency beneath the right hemidiaphragm is likely related to interposed bowel. The heart is mildly prominent.Dedicated two views of the chest would be useful for better assessment given the limitations of the study. Conclusions/Impression: A/ BAILEY may be Prerenal vs ATN complicated by urinary retention. Acidosis Hypocalcemia CKD III HTN with CKD complicated by hypotension Hyperglycemia. Moderate malnutrition Anemia in chronic illness COVID19 Septic Shock P/ Continue current POC and Medications Agree with cee due to urinary retention. IVF bolus X2 liters. Consider Levophed if persistent hypotension. Start 1/2NS after the bolus. Start Vitamin D. Start oral bicarb. COVID protocol/ Oxygen supplementation. Continue steroids. Continue abx No NSAIDs. AM labs. Daily weight. Thank you kindly for the consultation. Case reviewed with Dr. Cline and Dr. Rowe. Critical Care: Yes (>30min)
[2020-09-02] MEDS: NACHLORIDE 0.45% 1,000 ML IV SCH ×3 (12:50→20:00)
[2020-09-02] MEDS ORDERED: NACHLORIDE 0.45% 1,000 ML IV SCH (13:00)
[2020-09-02] MEDS ORDERED: NA CHLORIDE 0.9% 1,000 ML IV SCH (13:00)
[2020-09-02] MEDS: Levofloxacin 250mg IV 250 MG/50 ML BAG IV SCH (18:03)
[2020-09-02] MEDS: SODIUM BICARB 325 MG TAB PO SCH (18:03)
[2020-09-02] MEDS: ENOXAPARIN 60 MG/0.6 ML SQ SCH (18:04)
[2020-09-02] MEDS: METHYLPREDNISOLONE 40 MG INJ IV SCH (21:27)
[2020-09-03] MEDS: NACHLORIDE 0.45% 1,000 ML IV SCH ×4 (05:34→22:38)
[2020-09-03 05:42] LABS: Absolute Lymphocytes (CBC) 0.7 K/uL (0.7-4.9); Basophils % 0.2 % (0-1.3); Hematocrit 25.1 % (39.6-49.0); Lymphocytes % 6.9 % (15.3-44.8); MPV 8.7 fL (7.6-11.3); RBC Red Blood Cell Count 2.75 M/uL (4.33-5.43)
[2020-09-03 06:06] LABS: Bilirubin Total 0.2 mg/dL (0.2-1.0); Potassium 4.3 mmol/L (3.5-5.1); Protein, Total 5.2 g/dL (6.4-8.2)
[2020-09-03 06:07] LABS: C-Reactive Protein 57.9 mg/L (<3.00); Magnesium 2.2 mg/dL (1.8-2.4); Phosphorus 2.9 mg/dL (2.5-4.9); Uric Acid 7.6 mg/dL (3.5-7.2)
[2020-09-03 06:29] LABS: Urine Appearance CLEAR; Urine Bilirubin NEGATIVE (NEG); Urine Blood 2+ (NEG); Urine Color YELLOW; Urine Glucose NEGATIVE (NEG); Urine Protein NEGATIVE (NEG); Urine Urobilinogen 0.2 mg/dL (0.2-1.0); Urine pH 5.5 (5.0-7.0)
--- NOTE | 2020-09-03 08:27 | P.PN ---
Subjective Date of Service: 09/03/20 Primary Care Provider: Marlyn Chief Complaint: possible covid infection Subjective: Improving (rash has improved and labs are improving) Review of Systems 10-point ROS is otherwise unremarkable Integumentary: Rash Physical Examination - Vital Signs Temperature: 97.4 F Blood Pressure: 87/55 Pulse: 56 Respirations: 17 Pulse Ox (%): 99 - Physical Exam General: Alert, In no apparent distress HEENT: Atraumatic, PERRLA, EOMI Neck: Supple, JVD not distended Respiratory: Clear to auscultation bilaterally, Normal air movement Cardiovascular: Regular rate/rhythm, Normal S1 S2 Gastrointestinal: Normal bowel sounds, No tenderness Musculoskeletal: No tenderness Integumentary: Rash(es) (much improved from yesterday) Neurological: Normal speech, Normal tone, Normal affect Lymphatics: No axilla or inguinal lymphadenopathy Assessment & Plan - Problems (Diagnosis) (1) Cellulitis Current Visit: Yes Status: Acute Plan: Patient has diffuse cellulitis. Vancomycin stopped by Dr. Cooper. He is much improved. The patient is improving. Perhaps this was a drug reaction. Qualifiers: Site of cellulitis: extremity Site of cellulitis of extremity: lower extremity Laterality: unspecified laterality Qualified Code(s): L03.119 - Cellulitis of unspecified part of limb (2) Acute on chronic renal failure Current Visit: Yes Status: Acute Plan: Improving slightly with fluids. Will consult Dr Mccartney. Needs a cee as there is an obstruction. Hold fluids till we can get a cee. 09/03 Patient is improving. Seen by . Started on normal saline. Cr is 1.5 which is close to his baseline of 1.2 Qualifiers: Chronic kidney disease stage: stage 2 (mild) (3) COVID-19 Current Visit: Yes Status: Acute Plan: he may be having covid. CXR is not very diagnostic. However he has the acute renal failure and htn. As well as a elevated wbc. Have discussed the patient with Dr. Cooper. Will start with aggressive fluid hydration. As well as steroids and vanc and levaquin. Will use full dose enoxaparin to prevent aggressive blood clots. 09/03 No respiratory symptoms. He is pulse oxing well. (4) Cerebral palsy Current Visit: Yes Status: Acute Plan: Mostly wheelchair bound. the patient is stable from this standpoint Qualifiers: Cerebral palsy type: spastic diplegic Qualified Code(s): G80.1 - Spastic diplegic cerebral palsy (5) HTN (hypertension) Current Visit: Yes Status: Acute Plan: hold bp meds due to current hypotension. Qualifiers: Hypertension type: essential hypertension Qualified Code(s): I10 - Essential (primary) hypertension Discharge Plan: [facility] Plan to discharge in: Greater than 2 days - Code Status/Comfort Care Code Status Assessed: No Physician Review: Patient Assessed, Agree with Above Assessment and Plan Critical Care: Yes Time Spent Managing Pts Care (In Minutes): 30
[2020-09-03] MEDS: SODIUM BICARB 325 MG TAB PO SCH ×3 (08:30→17:49)
[2020-09-03] MEDS: VITAMIN D 5,000 UNIT CAP PO SCH (08:30)
[2020-09-03] MEDS: METHYLPREDNISOLONE 40 MG INJ IV SCH ×2 (08:31→20:14)
[2020-09-03] MEDS ORDERED: BALSAM PERU TOP SCH (09:00)
[2020-09-03] MEDS ORDERED: TRYPSIN TOP SCH (09:00)
[2020-09-03] MEDS ORDERED: CASTOR OIL TOP SCH (09:00)
[2020-09-03 09:13] LABS: Urine Bacteria <20 /HPF (NONE SEEN); Urine Culture Reflex Order NOT NEEDED; Urine Mucus 1+ /HPF (NONE SEEN); Urine RBC <5 /HPF (NONE SEEN)
--- NOTE | 2020-09-03 09:36 | EKG ---
Test Date: 2020-09-01 Test Time: 14:38:04 [place]: EDU MEASUREMENT RESULTS: Intervals: Rate: 109 MN: 176 QRSD: 66 QT: 326 QTc: 439 [place]: P: 11 MN: 176 QRS: -34 T: -21 INTERPRETIVE STATEMENTS: Sinus tachycardia Left axis deviation Nonspecific ST abnormality Abnormal ECG No previous ECG available for comparison Electronically Signed On 09-03-20 09:31:27 CDT by Rishi Chapa
--- NOTE | 2020-09-03 14:09 | P.PN ---
Subjective Date of Service: 09/03/20 Primary Care Provider: Malryn Chief Complaint: possible covid infection seen/examined. alert/looks comfortable. vs stable. bp on lower side but stable/systolic 85-90s. ext: rash b/l lower ext with some skin peeling. no edema patient is alert/looks comfortable. exam limited with patient covid + labs reviewed. a/p: gemma/acidosis/volume depletion, pre renal/creatinine improving/wbc improving, on abx; rash documented to have improved, i am seeing it for first time: gemma, improving with ivf/continue with bp monitoring. on bicarb pills. if bicarb drops further, could add 1 amp of bicarb with a litre bag of 1/2 ns and after done, could go back to ns ivf recusitation. clinically seems improved. creatinine better/bp stable, not on pressors/alert. Physical Examination - Vital Signs Temperature: 97.4 F Blood Pressure: 87/55 Pulse: 56 Respirations: 17 Pulse Ox (%): 99 Assessment And Plan Physician Review: Patient Assessed, Agree with Above Assessment and Plan
[2020-09-03] MEDS: Levofloxacin 250mg IV 250 MG/50 ML BAG IV SCH (17:49)
[2020-09-03] MEDS: ENOXAPARIN 60 MG/0.6 ML SQ SCH (17:49)
[2020-09-04] MEDS: NACHLORIDE 0.45% 1,000 ML IV SCH (04:35)
[2020-09-04 05:17] LABS: Absolute Lymphocytes (CBC) 0.8 K/uL (0.7-4.9); Basophils % 0.1 % (0-1.3); Hematocrit 27.3 % (39.6-49.0); Lymphocytes % 7.7 % (15.3-44.8); MPV 8.5 fL (7.6-11.3); RBC Red Blood Cell Count 2.98 M/uL (4.33-5.43)
[2020-09-04 05:45] LABS: Albumin 2.1 g/dL (3.4-5.0); Bilirubin Total 0.2 mg/dL (0.2-1.0); Potassium 4.5 mmol/L (3.5-5.1); Protein, Total 5.3 g/dL (6.4-8.2)
[2020-09-04 05:51] VITALS: BMI 22.6
[2020-09-04] MEDS: VITAMIN D 5,000 UNIT CAP PO SCH (08:19)
[2020-09-04] MEDS: SODIUM BICARB 325 MG TAB PO SCH ×3 (08:19→17:24)
[2020-09-04] MEDS: METHYLPREDNISOLONE 40 MG INJ IV SCH ×2 (08:20→19:54)
[2020-09-04] MEDS: VITAMIN D 1000 UNIT TAB PO SCH (09:00)
--- NOTE | 2020-09-04 10:16 | P.PN ---
Subjective Date of Service: 09/04/20 Primary Care Provider: Marlyn Chief Complaint: possible covid infection Subjective: Improving (rash is continuing to improve) Review of Systems 10-point ROS is otherwise unremarkable Integumentary: Rash (improving) Physical Examination - Vital Signs Temperature: 97 F Blood Pressure: 120/77 Pulse: 79 Respirations: 23 Pulse Ox (%): 92 - Physical Exam General: Alert, In no apparent distress HEENT: Atraumatic, PERRLA, EOMI Neck: Supple, JVD not distended Respiratory: Clear to auscultation bilaterally, Normal air movement Cardiovascular: Regular rate/rhythm, Normal S1 S2 Gastrointestinal: Normal bowel sounds, No tenderness Musculoskeletal: No tenderness Integumentary: Rash(es), Erythema (both improving) Neurological: Normal speech, Normal tone, Normal affect Lymphatics: No axilla or inguinal lymphadenopathy Assessment & Plan - Problems (Diagnosis) (1) Cellulitis Current Visit: Yes Status: Acute Plan: Patient has diffuse cellulitis. Vancomycin stopped by Dr. Cooper. He is much improved. The patient is improving. Perhaps this was a drug reaction. 09/04 Patient is improving. Will switch his levaquin from iv to po form. Have discussed the patient with Dr. Cooper. Qualifiers: Site of cellulitis: extremity Site of cellulitis of extremity: lower extremity Laterality: unspecified laterality Qualified Code(s): L03.119 - Cellulitis of unspecified part of limb (2) Acute on chronic renal failure Current Visit: Yes Status: Resolved Plan: Improving slightly with fluids. Will consult Dr Mccartney. Needs a cee as there is an obstruction. Hold fluids till we can get a cee. 09/04 Patient is improving. She is at his baseline creatine of 1.2 Will decrease his fluids. If he continues to improve we can stop them tomorrow. Qualifiers: Chronic kidney disease stage: stage 2 (mild) (3) COVID-19 Current Visit: Yes Status: Acute Plan: he may be having covid. CXR is not very diagnostic. However he has the acute renal failure and htn. As well as a elevated wbc. Have discussed the patient with Dr. Cooper. Will start with aggressive fluid hydration. As well as steroids and vanc and levaquin. Will use full dose enoxaparin to prevent aggressive blood clots. 09/03 No respiratory symptoms. He is pulse oxing well. (4) Cerebral palsy Current Visit: Yes Status: Acute Plan: Mostly wheelchair bound. the patient is stable from this standpoint 10/05. Will order PT on the patient . Qualifiers: Cerebral palsy type: spastic diplegic Qualified Code(s): G80.1 - Spastic diplegic cerebral palsy (5) HTN (hypertension) Current Visit: Yes Status: Acute Plan: hold bp meds due to current hypotension. Qualifiers: Hypertension type: essential hypertension Qualified Code(s): I10 - Essential (primary) hypertension Discharge Plan: [facility] Plan to discharge in: 24 Hours - Code Status/Comfort Care Code Status Assessed: No Physician Review: Patient Assessed, Agree with Above Assessment and Plan Critical Care: Yes Time Spent Managing Pts Care (In Minutes): 35
--- NOTE | 2020-09-04 10:17 | P.PN ---
Subjective Date of Service: 09/03/20 Primary Care Provider: Marlyn Chief Complaint: Shock serrato virus infection Subjective: Improving (Patient is steadily improving his blood pressure renal functions are all improving) Review of Systems is unable to be obtained Physical Examination - Vital Signs Temperature: 97 F Blood Pressure: 120/77 Pulse: 79 Respirations: 23 Pulse Ox (%): 92 - Physical Exam General: Alert, Mild distress Assessment & Plan - Problems (Diagnosis) (1) Shock Current Visit: Yes Status: Acute Plan: The shock is improving with IV fluids renal function is also improving blood cultures negative saturation satisfactory requiring minimal oxygen (2) COVID-19 Current Visit: Yes Status: Acute Plan: Condition stable no evidence of ARDS and serrato virus minimal inflammatory changes in the left lower zone Physician Review: Patient Assessed, Agree with Above Assessment and Plan
--- NOTE | 2020-09-04 10:24 | P.PN ---
Subjective Date of Service: 09/04/20 Primary Care Provider: Marlyn Chief Complaint: Shock serrato virus infection shock Subjective: Improving (Patient is doing much better back to his baseline resume thickened diet) Review of Systems is unable to be obtained Physical Examination - Vital Signs Temperature: 97 F Blood Pressure: 120/77 Pulse: 79 Respirations: 23 Pulse Ox (%): 92 - Physical Exam General: Alert Respiratory: Normal air movement Cardiovascular: No edema Assessment & Plan - Problems (Diagnosis) (1) Shock Current Visit: Yes Status: Acute Plan: Patient shock has resolved blood pressure satisfactory reduce IV fluids bicarbonate satisfactory cultures negative possible discharge tomorrow on p.o. prednisone 20 mg twice a day for a week 10 mg twice a day for another week if he relapses continue with 10 mg once a day (2) COVID-19 Current Visit: Yes Status: Acute Plan: doing well saturation satisfactory renal function improving change to Eliquis I have added Pepcid melatonin vitamin-D and thymine Physician Review: Patient Assessed, Agree with Above Assessment and Plan
[2020-09-04] MEDS: THIAMINE HCL 100 MG TABLET PO SCH (11:09)
[2020-09-04] MEDS: NA CHLORIDE 0.9% 1,000 ML IV SCH ×2 (11:09→19:54)
[2020-09-04] MEDS: APIXABAN 5 MG TABLET PO SCH (19:55)
[2020-09-04] MEDS ORDERED: MELATONIN 3 MG TABLET PO SCH (21:00)
[2020-09-05 05:36] LABS: Basophils % 0.2 % (0-1.3); Hematocrit 27.8 % (39.6-49.0); Lymphocytes % 9.5 % (15.3-44.8); MPV 8.7 fL (7.6-11.3); RBC Red Blood Cell Count 3.06 M/uL (4.33-5.43)
[2020-09-05 05:43] LABS: Albumin 2.1 g/dL (3.4-5.0); Bilirubin Total 0.2 mg/dL (0.2-1.0); Potassium 4.4 mmol/L (3.5-5.1); Protein, Total 5.3 g/dL (6.4-8.2)
[2020-09-05] MEDS: ACETAMINOPHEN 500 MG TAB PO PRN (06:03)
--- NOTE | 2020-09-05 07:19 | P.DS ---
Admission Date: 09/01/20 Discharge Date: 09/05/20 Primary Care Provider: Marlyn Disposition: TRANSFER TO LONG-TERM Discharge Condition: GOOD Reason for Admission: Shock serrato virus infection shock - Problems (1) Cellulitis Current Visit: Yes Status: Acute Qualifiers: Site of cellulitis: extremity Site of cellulitis of extremity: lower extremity Laterality: unspecified laterality Qualified Code(s): L03.119 - Cellulitis of unspecified part of limb (2) Acute on chronic renal failure Current Visit: Yes Status: Resolved Qualifiers: Chronic kidney disease stage: stage 2 (mild) (3) COVID-19 Current Visit: Yes Status: Acute (4) Cerebral palsy Current Visit: Yes Status: Acute Qualifiers: Cerebral palsy type: spastic diplegic Qualified Code(s): G80.1 - Spastic diplegic cerebral palsy (5) HTN (hypertension) Current Visit: Yes Status: Acute Qualifiers: Hypertension type: essential hypertension Qualified Code(s): I10 - Essential (primary) hypertension Brief History of Present Illness: Patient of mine [facility]. He has a history of recent covid infection. Was in the isolation unit for 14 days without any symptoms. Today he started complaining about leg and chest pain. He was found to be tachycardic and sent to the ER. The patient was found to be hypotensive and had an elevated blood count in the ER. With acute renal failure and a very elevated d-dimer. He still tested positive for covid. He has a hisotory of cerebral palsy. The patient had a negative doppler of the legs. Hospital Course: Patient was admitted for chest and leg pain. He had a mild pneumonia and a cellulitis. He also tested positive for covid 19. Was put in the icu. Started on Vanco and levaquin. He started having a worsening rash all over his body and the vancomycin was stopped. He started improving erythema after that. He had difficulty urinating and renal failure. We were able to get a cee in and the patient was hydrated. Seen by Dr. Hodge. His renal function improved. Will see if he can urinate after d/c the cee. Will start him on tamusolin. If he has difficulty with urination will refer him to [facility] as an outpatient Vital Signs/Physical Exam: Temp Pulse Resp BP Pulse Ox 98 F 52 18 132/74 91 09/05/20 04:00 09/05/20 05:00 09/05/20 05:00 09/05/20 05:00 09/05/20 05:00 General: Alert, In no apparent distress HEENT: Atraumatic, PERRLA, EOMI Neck: Supple, JVD not distended Respiratory: Clear to auscultation bilaterally, Normal air movement Cardiovascular: Regular rate/rhythm, Normal S1 S2 Gastrointestinal: Normal bowel sounds, No tenderness Musculoskeletal: No tenderness Integumentary: No rashes Neurological: Normal speech, Normal tone, Normal affect Lymphatics: No axilla or inguinal lymphadenopathy Laboratory Data at Discharge: WBC 10.2 K/uL (4.3-10.9) 09/05/20 04:20 Hgb 9.6 g/dL (13.6-17.9) L 09/05/20 04:20 Hct 27.8 % (39.6-49.0) L 09/05/20 04:20 Plt Count 188 K/uL (152-406) 09/05/20 04:20 PT 12.0 SECONDS (9.5-12.5) 09/01/20 15:08 INR 1.02 09/01/20 15:08 Sodium 143 mmol/L (136-145) 09/05/20 04:20 Potassium 4.4 mmol/L (3.5-5.1) 09/05/20 04:20 BUN 28 mg/dL (7-18) H 09/05/20 04:20 Creatinine 1.06 mg/dL (0.55-1.3) 09/05/20 04:20 Glucose 104 mg/dL (74-106) 09/05/20 04:20 Uric Acid 7.6 mg/dL (3.5-7.2) H 09/03/20 05:22 Phosphorus 2.9 mg/dL (2.5-4.9) 09/03/20 05:22 Magnesium 2.2 mg/dL (1.8-2.4) 09/03/20 05:22 Total Bilirubin 0.2 mg/dL (0.2-1.0) 09/05/20 04:20 AST 17 U/L (15-37) 09/05/20 04:20 ALT 23 U/L (12-78) 09/05/20 04:20 Alkaline Phosphatase 60 U/L (45-117) 09/05/20 04:20 Troponin I < 0.02 ng/mL (0.0-0.045) 09/02/20 01:17 Home Medications: Acetaminophen [Tylenol] 325 mg PO Q6HP PRN 09/02/20 Arginine/Ascorbate Sod/David AC [Arginaid Powder] 1 packet PO BID 09/02/20 Ascorbic Acid [C-500] 500 mg PO BID 09/02/20 Ascorbic Acid/Zinc [Zinc Lozenges] 1 lozenge PO Q6HP PRN 09/02/20 Aspirin Chewable [Aspirin Chewable*] 81 mg PO DAILY 09/02/20 Benzocaine [Oral Pain Relief] 1 susana PO Q4HP PRN 09/02/20 Docusate [Colace Cap*] 100 mg PO DAILY 09/02/20 Fluticasone [Flonase 50MCG Nasal [place]*] 2 sprays IH DAILYPRN PRN 09/02/20 Lidocaine 4% Patch [Lidoderm 5% Patch*] 1 patch TOP DAILY 09/02/20 Lisinopril [Zestril] 20 mg PO DAILY 09/02/20 Multivitamin [Multiple Vitamins] 1 tab PO DAILY 09/02/20 Ondansetron [Zofran (Odt)*] 4 mg PO Q6HP PRN 09/02/20 Simvastatin 20 mg PO DAILY 09/02/20 Smz./Tmp. [Bactrim Ds 800 MG/160 MG*] 1 tab PO BID 09/02/20 traMADol HCL [Ultram*] 50 mg PO Q8HP PRN 09/02/20 Apixaban [Eliquis] 5 mg PO BID 30 Days #60 tablet 09/05/20 Emollient Combination No.92 [Lubriderm Daily Moisture] 473 ml TP DAILY 30 Days #120 lotion 09/05/20 Levofloxacin [Levaquin] 500 mg PO DAILY 5 Days #5 tablet 09/05/20 New Medications: Apixaban [Eliquis] 5 mg PO BID 30 Days #60 tablet Levofloxacin [Levaquin] 500 mg PO DAILY 5 Days #5 tablet Emollient Combination No.92 [Lubriderm Daily Moisture] 473 ml TP DAILY 30 Days #120 lotion Diet: soft Activity: Fall precautions Followup: Marlyn,Royer, MD [Primary Care Provider] - Time spent managing pt's care (in minutes): 35
[2020-09-05 07:22] VITALS: O2SAT 90
[2020-09-05] MEDS: SODIUM BICARB 325 MG TAB PO SCH (07:28)
[2020-09-05] MEDS: APIXABAN 5 MG TABLET PO SCH (07:29)
[2020-09-05] MEDS: VITAMIN D 1000 UNIT TAB PO SCH (07:29)
[2020-09-05] MEDS: THIAMINE HCL 100 MG TABLET PO SCH (07:29)
[2020-09-05] MEDS: METHYLPREDNISOLONE 40 MG INJ IV SCH (07:30)
[2020-09-05 08:05] VITALS: BP 122/77
[2020-09-05 08:14] VITALS: TEMP 98.5
[2020-09-05] MEDS ORDERED: FAMOTIDINE 20 MG/2 ML VIAL IV SCH (09:00)
[2020-09-05] MEDS ORDERED: levoFLOXacin 500 MG TAB PO SCH (09:00)
--- NOTE | 2020-09-05 11:12 | ECHO ---
HEIGHT: 5 ft 5 in WEIGHT: 137 lb 8 oz DATE OF STUDY: 09/02/[address]: Ben Rowe MD 2-DIMENSIONAL: YES M.MODE: YES DOPPLER: YES COLOR FLOW: YES TDS: NO PORTABLE: NO DEFINITY: NO BUBBLE STUDY: NO DIAGNOSIS: HISTORY OF COVID, RULE OUT PULMONARY EMBOLISM CARDIAC HISTORY: CATHERIZATION: NO SURGERY: NO PROSTHETIC VALVE: NO PACEMAKER: NO MEASUREMENTS (cm) DIASTOLIC (NORMALS) SYSTOLIC (NORMALS) IVSd 1.0 (0.6-1.2) LA Diam 3.1 (1.9-4.0) LVEF 66% LVIDd 3.4 (3.5-5.7) LVIDs 2.2 (2.0-3.5) %FS 35% LVPWd 1.3 (0.6-1.2) Ao Diam 3.3 (2.0-3.7) 2 DIMENSIONAL ASSESSMENT: RIGHT ATRIUM: NORMAL LEFT ATRIUM: NORMAL RIGHT VENTRICLE: NORMAL LEFT VENTRICLE: NORMAL TRICUSPID VALVE: NORMAL MITRAL VALVE: NORMAL PULMONIC VALVE: NORMAL AORTIC VALVE: SCLEROSIS PERICARDIAL EFFUSION: NONE AORTIC ROOT: NORMAL LEFT VENTRICULAR WALL MOTION: NORMAL. DOPPLER/COLOR FLOW: NORMAL. COMMENTS: NORMAL LEFT VENTRICULAR SIZE AND FUNCTION. AORTIC SCLEROSIS WITH NO STENOSIS. NO WALL MOTION ABNORMALITY. NO EFFUSION. TECHNOLOGIST: GINETTE SERRATO
--- NOTE | 2020-09-05 15:34 | P.PN ---
Date of Service: 09/05/20 Vital Signs Temp Pulse Resp BP Pulse Ox 98.5 F 59 20 122/77 86 L 09/05/20 08:00 09/05/20 07:00 09/05/20 07:00 09/05/20 07:00 09/05/20 07:00 Microbiology Results 09/01/20 15:08 Blood - Blood Aerobic Blood Culture - Preliminary No growth in 24 hours. 09/01/20 15:08 Blood - Blood Anaerobic Blood Culture - Preliminary No growth in 24 hours. 09/01/20 15:05 Blood - Blood Aerobic Blood Culture - Preliminary No growth in 24 hours. 09/01/20 15:05 Blood - Blood Anaerobic Blood Culture - Preliminary No growth in 24 hours. Assessment/ Plan: Nephrology Doing better. No acute events overnight. CPS stable without CP or SOB. Limited IH/ ROS due to CP. Vitals, medications, blood work and imaging reviewed in the chart. General: In no apparent distress, Cooperative HEENT: Atraumatic Neck: Supple Respiratory: Clear to auscultation bilaterally Cardiovascular: No edema, Regular rate/rhythm Gastrointestinal: Soft and benign, Non-distended Musculoskeletal: No clubbing, Contractures Integumentary: No cyanosis, Rash(es) Neurological: Abnormal speech, Abnormal tone Urinary: Carrizales catheter Laboratory Data (last 24 hrs) 09/01/20 15:08: PT 12.0, INR 1.02 09/01/20 15:08: WBC 17.4 H, Hgb 13.4 L, Hct 40.5, Plt Count 253 09/01/20 15:08: Sodium 139, Potassium 5.0, BUN 27 H, Creatinine 2.51 H, Glucose 170 H, Magnesium 1.9, Total Bilirubin 0.4, AST 18, ALT 24, Alkaline Phosphatase 98 Imagings Data: EXAM DESCRIPTION: CT - Thorax Wo Con CLINICAL HISTORY: Chest pain pneumonia COMPARISON: Chest Single View dated 09/01/2020 FINDINGS: Elevated right hemidiaphragm is seen with colonic interposition present. Linear opacities are present in the left lung base may represent atelectasis or developing infiltrate. No pleural thickening or pleural effusion. No pneumothorax. Mild esophageal distention is seen. No axillary, mediastinal or hilar adenopathy. No concerning bony finding. Cholelithiasis. All CT scans are performed using dose optimization technique as appropriate and may include automated exposure control or mA/KV adjustment according to patient size. IMPRESSION: Mild linear opacities in left lung base may represent subsegmental atelectasis or small infiltrate. Cholelithiasis. EXAM DESCRIPTION: RAD - Chest Single View - 09/01/2020 3:32 pm CLINICAL HISTORY: CHEST PAIN Chest pain. COMPARISON: No comparisons FINDINGS: Portable and patient positioning technique limits examination quality. Poorly defined opacities are present in the left lung base which may represent atelectasis or developing pneumonia. Lucency beneath the right hemidiaphragm is likely related to interposed bowel. The heart is mildly prominent.Dedicated two views of the chest would be useful for better assessment given the limitations of the study. Conclusions/Impression: A/ BAILEY may be Prerenal vs ATN complicated by urinary retention. Acidosis Hypocalcemia CKD III HTN with CKD complicated by hypotension Hyperglycemia. Moderate malnutrition Anemia in chronic illness COVID19 Septic Shock P/ Continue current POC and Medications Voiding trial. Maintain hydration. Continue oral bicarb. COVID protocol/ Oxygen supplementation. Wean steroids. Continue abx No NSAIDs. AM labs. Daily weight.
== END 2020-09-05 10:30 | DRG 871 ==
LOC: ER 14:28 → SUPCPDRO 14:28 → ERHOLD 17:11 → UNDOADMIN 17:11 → ERHOLD 17:39 → 3RD-ICU 09-02 00:16
PROVIDERS: ADMIT Internal Medicine; ATTEND Internal Medicine
DX: A41.89 Other specified sepsis (principal); U07.1 COVID-19; R65.21 Severe sepsis with septic shock; J12.89 Other viral pneumonia; N17.9 Acute kidney failure, unspecified; L03.119 Cellulitis of unspecified part of limb; G80.1 Spastic diplegic cerebral palsy; E87.2 Acidosis; E44.0 Moderate protein-calorie malnutrition; L89.511 Pressure ulcer of right ankle, stage 1; E78.5 Hyperlipidemia, unspecified; D63.8 Anemia in other chronic diseases classified elsewhere; L53.9 Erythematous condition, unspecified; E86.9 Volume depletion, unspecified; E83.51 Hypocalcemia; K21.9 Gastro-esophageal reflux disease without esophagitis; I12.9 Hypertensive chronic kidney disease with stage 1 through stage 4 chronic kidney disease, or unspecified chronic kidney disease; N18.2 Chronic kidney disease, stage 2 (mild); R33.9 Retention of urine, unspecified; R73.9 Hyperglycemia, unspecified; Z79.82 Long term (current) use of aspirin; Z79.899 Other long term (current) drug therapy; Z68.22 Body mass index [BMI] 22.0-22.9, adult; Z79.01 Long term (current) use of anticoagulants
CPT/HCPCS: 36415; 71045; 71250; 80048; 80053; 80076; 80202; 81001; 82043; 82565; 82947; 83605; 83735; 83880; 84100; 84145; 84300; 84484; 84550; 85025; 85379; 85610; 86140; 87040; 93005; 93306; 93970; 94760; 96361; 96365; 96366; 96372; 99285; J0696; J1650; J2405; J2920; J2930; J3370; J7030; J7040; J7050; U0003

== ENCOUNTER 2020-09-15 19:50 | Inpatient (IN) | payer OTHER ==
[2020-09-15] MEDS ORDERED: NA CHLORIDE 0.9% 0 ML ONE ×2 (20:23→20:28)
[2020-09-15] MEDS ORDERED: NA CHLORIDE 0.9% 1,000 ML ONE (20:28)
[2020-09-15] MEDS ORDERED: HYDROCORTISONE SUC 100 MG INJ ONE (20:28)
[2020-09-15 20:36] LABS: Hematocrit 44.2 % (39.6-49.0)
[2020-09-15 20:39] LABS: Absolute Lymphocytes (CBC) 1.7 K/uL (0.7-4.9); Basophils % 0.4 % (0-1.3); Lymphocytes % 8.7 % (15.3-44.8); MPV 8.7 fL (7.6-11.3); RBC Red Blood Cell Count 4.73 M/uL (4.33-5.43)
[2020-09-15 20:48] LABS: Protime INR 2.08
[2020-09-15 20:49] LABS: ALT/SGPT 28 U/L (12-78); AST/SGOT 20 U/L (15-37); Albumin 2.8 g/dL (3.4-5.0); Alkaline Phosphatase 100 U/L (45-117); Amylase 120 U/L (25-115); BUN Blood Urea Nitrogen 79 mg/dL (7-18); Bicarbonate 25 mmol/L (21-32); Bilirubin Direct < 0.1 mg/dL (0-0.2); Bilirubin Total 0.3 mg/dL (0.2-1.0); CKMB Creatine Kinase MB 1.6 ng/mL (0.3-3.6); Creatine Phosphokinase 117 U/L (39-308); Glucose Level 131 mg/dL (74-106); Lipase 572 U/L (73-393); Magnesium 3.2 mg/dL (1.8-2.4); Phosphorus 5.3 mg/dL (2.5-4.9); Potassium 4.3 mmol/L (3.5-5.1); Protein, Total 7.6 g/dL (6.4-8.2); Troponin (Emerg Dept Use Only) < 0.02 ng/mL (0.0-0.045)
[2020-09-15 20:56] LABS: Sodium Level 162 mmol/L (136-145)
[2020-09-15] MEDS ORDERED: D5W 1,000 ML IV ONE (20:59)
--- NOTE | 2020-09-15 21:10 | RAD REPORT ---
EXAM DESCRIPTION: RAD - Chest Single View - 09/15/2020 8:59 pm CLINICAL HISTORY: hypotension Chest pain. COMPARISON: Chest Single View dated 09/01/2020 FINDINGS: Portable technique limits examination quality. The lungs are underinflated but grossly clear. The heart is normal in size. No displaced fractures. IMPRESSION: Underinflated lungs.
[2020-09-15 21:11] LABS: Blood Morphology Comment NOT SEEN (NOT SEEN); Platelet Estimate ADEQ
--- NOTE | 2020-09-15 21:47 | EDPHYS ---
Physician Documentation [facility] Name: Gabriel Krishnamurthy Age: 65 yrs Sex: Male : 1955 Arrival Date: 09/15/2020 Time: 19:52 Bed 4 Private MD: ED Physician Colin Gutierrez HPI: 09/15 20:13 This 65 yrs old Male presents to ER via EMS with complaints of slower to snw respond, not eating. 20:13 Onset: The symptoms/episode began/occurred gradually. Severity of symptoms: At their snw worst the symptoms were moderate severe. It is unknown whether or not the patient has had similar symptoms in the past. The patient has been recently seen by a physician: the patient's primary care provider, Dr. Cline. Historical: - Allergies: 20:12 No Known Allergies; sg - Home Meds: 20:12 acetaminophen 325 mg Oral tab 2 tabs every 6 hours [Active]; Arginaid Oral [Active]; sg ascorbic acid (vitamin C) 500 mg tab [Active]; aspirin 81 mg Oral chew 1 tab once daily [Active]; Bactrim DS 800-160 mg Oral tab 1 tab 2 times per day [Active]; benzocaine mucous membrane [Active]; docusate sodium 100 mg Oral cap 1 cap once daily [Active]; Flonase 50 mcg/actuation Nasal spsn 2 sprays once daily [Active]; lidocaine patch [Active]; lisinopril 20 mg Oral tab 1 tab once daily [Active]; multivitamin with minerals Oral tab [Active]; simvastatin 20 mg Oral tab 1 tab once daily [Active]; tramadol 50 mg Oral tab 1 tab every 8 hours [Active]; zinc lozenges Oral [Active]; Zofran (as hydrochloride) 4 mg Oral tab 1 tabs every 6 hours [Active]; - PMHx: 20:12 Cerebral Palsy; GERD; Hyperlipidemia; Hypertension; sg - Immunization history:: Adult Immunizations up to date. - Social history:: Smoking status: unknown. ROS: 20:15 Eyes: Negative for injury, pain, redness, and discharge, ENT: Negative for injury, snw pain, and discharge, Neck: Negative for injury, pain, and swelling. 20:15 Cardiovascular: Negative for chest pain, palpitations, and edema, Respiratory: Negative for shortness of breath, cough, wheezing, and pleuritic chest pain. 20:15 Back: Negative for injury and pain, : Negative for injury, bleeding, discharge, and swelling, MS/Extremity: Negative for injury and deformity, Skin: Negative for injury, rash, and discoloration. 20:15 Constitutional: Positive for body aches, malaise, poor PO intake. 20:15 Abdomen/GI: Positive for anorexia. 20:15 Neuro: Positive for weakness. Exam: 20:19 Head/Face: Normocephalic, atraumatic. Eyes: Pupils equal round and reactive to light, snw extra-ocular motions intact. Lids and lashes normal. Conjunctiva and sclera are non-icteric and not injected. Cornea within normal limits. Periorbital areas with no swelling, redness, or edema. Neck: Trachea midline, no thyromegaly or masses palpated, and no cervical lymphadenopathy. Supple, full range of motion without nuchal rigidity, or vertebral point tenderness. No Meningismus. Chest/axilla: Normal chest wall appearance and motion. Nontender with no deformity. No lesions are appreciated. 20:19 Respiratory: Lungs have equal breath sounds bilaterally, clear to auscultation and percussion. No rales, rhonchi or wheezes noted. No increased work of breathing, no retractions or nasal flaring. Abdomen/GI: Soft, non-tender, with normal bowel sounds. No distension or tympany. No guarding or rebound. No evidence of tenderness throughout. Back: No spinal tenderness. No costovertebral tenderness. Full range of motion. 20:19 MS/ Extremity: Pulses equal, no cyanosis. Neurovascular intact. Full, normal range of motion. Neuro: Awake and alert, GCS 15, oriented to person, place, time, and situation. Cranial nerves II-XII grossly intact. Motor strength 5/5 in all extremities. Sensory grossly intact. Cerebellar exam normal. Normal gait. Psych: Awake, alert, with orientation to person, place and time. Behavior, mood, and affect are within normal limits. 20:19 Constitutional: The patient appears awake, frail, lethargic, uncomfortable, malnourished 20:19 Cardiovascular: Rate: bradycardic, Rhythm: regular. 20:19 Skin: Appearance: Color: pale, flaking all over, Temperature: cold, Moisture: dry. Vital Signs: 19:56 BP 87 / 42; Pulse 45; Resp 16; Temp 97.7; Pulse Ox 94% on R/A; Weight 48.99 kg; Height sg 5 ft. 8 in. (172.72 cm); 22:05 BP 93 / 73; Pulse 87; Resp 20; Pulse Ox 95% on R/A; mg2 22:07 BP 131 / 97; Pulse 84; Resp 17; Temp 97.8; Pulse Ox 97% on R/A; ea 19:56 Body Mass Index 16.42 (48.99 kg, 172.72 cm) sg MDM: 20:04 Patient medically screened. snw 21:32 Data reviewed: vital signs, nurses notes. Data interpreted: Pulse oximetry: on room air snw is 94 %. Interpretation: acceptable. Counseling: I had a detailed discussion with the patient and/or guardian regarding: the historical points, exam findings, and any diagnostic results supporting the discharge/admit diagnosis, lab results, radiology results, the need for further work-up and treatment in the hospital. Physician consultation: Royer Cline MD was called at 21:32, was contacted at 21:32, regarding admission, to the ICU, in the emergency department to see patient at 21:32. 22:02 Physician consultation: Ton Shaffer MD was called at 22:03, was contacted at 22:03, [facility] regarding consult, per Dr. Cline's request. 23:21 ED course: Blood pressure recovering, may downgrade to tele per Dr. Cline. snw 09/15 20:01 Order name: C-Reactive Protein snw 09/15 20: Order name: Urine Culture w 09/15 20:01 Order name: T\T\S snw 09/15 20:01 Order name: Sed Rate snw 09/15 20:01 Order name: Amylase, Serum snw 09/15 20:01 Order name: Basic Metabolic Panel snw 09/15 20: Order name: Blood Culture Adult (2) snw 09/15 20:01 Order name: CBC with Diff snw 09/15 20:01 Order name: Ckmb snw 09/15 20:01 Order name: CPK snw 09/15 20:01 Order name: Lactate snw 09/15 20:01 Order name: LFT's sn 09/15 20:01 Order name: Lipase; Complete Time: 21:04 [facility] 09/15 20:01 Order name: Procalcitonin; Complete Time: 21:11 [facility] 09/15 20:01 Order name: Protime (+inr); Complete Time: 21:04 [facility] 09/15 20:01 Order name: Ptt, Activated; Complete Time: 21:04 [facility] 09/15 20:01 Order name: Troponin (emerg Dept Use Only); Complete Time: 21:04 [facility] 09/15 20:01 Order name: Urine Microscopic Only [facility] 09/15 20:01 Order name: Magnesium; Complete Time: 21:04 [facility] 09/15 20:01 Order name: Phosphorus; Complete Time: 21:04 [facility] 09/15 20:02 Order name: C-Reactive Protein; Complete Time: 21:04 [facility] 09/15 20:02 Order name: Urine Culture [facility] 09/15 20:02 Order name: Type and Screen; Complete Time: 21:24 [facility] 09/15 20:02 Order name: Sedimentation Rate, Westergren; Complete Time: 21:15 [facility] 09/15 20:02 Order name: Amylase; Complete Time: 21:04 [facility] 09/15 20:02 Order name: Basic Metabolic Panel; Complete Time: 21:04 [facility] 09/15 20:02 Order name: Blood Culture [facility] 09/15 20:02 Order name: CBC with Automated Diff; Complete Time: 21:15 [facility] 09/15 20:02 Order name: CKMB Creatine Kinase MB; Complete Time: 21:04 [facility] 09/15 20:02 Order name: Creatine Phosphokinase; Complete Time: 21:04 [facility] 09/15 20:01 Order name: Chest Single View XRAY; Complete Time: 21:15 [facility] 09/15 20:01 Order name: Accucheck; Complete Time: 20:31 [facility] 09/15 20:01 Order name: Cardiac monitoring; Complete Time: 20:15 [facility] 09/15 20:01 Order name: EKG - Nurse/Tech; Complete Time: 20:31 [facility] 09/15 20:01 Order name: IV Saline Lock - Large Bore; Complete Time: 20:15 [facility] 09/15 20:01 Order name: Labs collected and sent; Complete Time: 20:15 [facility] 09/15 20:01 Order name: O2 Per Protocol; Complete Time: 20:15 snw 09/15 20:01 Order name: O2 Sat Monitoring; Complete Time: 20:15 snw 09/15 20:01 Order name: Urine Dipstick-Ancillary (obtain specimen); Complete Time: 22:15 snw 09/15 20:02 Order name: Lactate; Complete Time: 21:04 EDMS 09/15 20:02 Order name: Liver (Hepatic) Function; Complete Time: 21:04 EDMS 09/15 20:05 Order name: Ferritin; Complete Time: 21:04 snw 09/15 20:40 Order name: Glucose, Ancillary Testing; Complete Time: 20:41 EDMS 09/15 21:11 Order name: Manual Differential; Complete Time: 21:15 EDMS 09/15 22:04 Order name: Recheck B/P; Complete Time: 22:04 snw 09/15 22:30 Order name: SARS-COV-2 RT PCR; Complete Time: 22:31 EDMS 09/16 01:08 Order name: Lactate Sepsis 2 HR Follow-up EDMS 09/16 01:30 Order name: Urine Dipstick--Ancillary (enter results) tt3 09/16 03:53 Order name: Urine Dipstick-Ancillary EDMS 09/16 06:27 Order name: Comprehensive Metabolic Panel EDMS 09/16 06:27 Order name: Magnesium EDMS Administered Medications: 20:14 CANCELLED (Duplicate Order): NS 0.9% (30 ml/kg) 30 ml/kg IV at bolus once; Sepsis [facility] Protocol 20:31 Drug: HydroCORTISONE 100 mg Route: IVP; Site: right antecubital; mg2 22:14 Follow up: Response: No adverse reaction ea 20:31 Drug: NS 0.9% 1000 ml Route: IV; Rate: 1 bolus; Site: right antecubital; mg2 22:14 Follow up: Response: No adverse reaction; IV Status: Completed infusion; IV Intake: ea 1000ml 20:35 Drug: D5W 1000 ml Route: IV; Rate: 100 ml/hr; Site: right antecubital; ea 22:15 Follow up: Response: No adverse reaction; IV Status: Infusion continued upon admission ea 22:06 Drug: Thiamine 100 mg Route: IV; Rate: bolus; Site: right antecubital; ea 22:15 Follow up: Response: No adverse reaction; IV Status: Completed infusion ea Disposition: 09/15/20 21:46 Hospitalization ordered by Royer Cline for Inpatient Admission. Preliminary diagnosis are Dehydration, Acute kidney failure, unspecified, CoVid 19 positive hx, negative today. - Bed requested for Telemetry/MedSurg (Inpatient). - Status is Inpatient Admission. ss - Condition is Fair. - Problem is an acute exacerbation. - Symptoms have worsened. Addendum: 09/19/2020 08:28 Co-signature as Attending Physician, Colin Gutierrez MD I agree with the assessment and c costa plan of care. Signatures: Dispatcher [employer] EDCA Latisha Troncoso RN RN mw Gay, Steven, RN RN sg Anderson, Corey, MD MD cha Waters, Shelly, CLOUD AUTOMATION TESTER-C CLOUD AUTOMATION TESTER-Csnw Inocencia Lennon RN RN ss Antunez, Elena, RN RN ea Gardose, Michele, RN RN mg2 Corrections: (The following items were deleted from the chart) 09/15 20:14 20:01 NS 0.9% (30 ml/kg) 30 ml/kg IV at bolus once; Sepsis Protocol ordered. snw snw 20:14 20:14 NS 0.9% (30 ml/kg) 30 ml/kg IV at bolus once; Sepsis Protocol ordered. snw snw 21:23 20:05 CORONAVIRUS+MR.LAB.BRZ ordered. [facility] EDMS 21:58 21:46 Hospitalization Ordered by Royer Cline MD for Inpatient Admission. Preliminary mw diagnosis is Dehydration; Acute kidney failure, unspecified; CoVid 19 positive. Bed requested for Intensive Care Unit. Status is Inpatient Admission. Condition is Fair. Problem is an acute exacerbation. Symptoms have worsened. snw 22:44 21:58 09/15/2020 21:46 Hospitalization Ordered by Royer Cline MD for Inpatient mw Admission. Preliminary diagnosis is Dehydration; Acute kidney failure, unspecified; CoVid 19 positive. Bed requested for Intensive Care Unit. Status is Inpatient Admission. Condition is Fair. Problem is an acute exacerbation. Symptoms have worsened. mw 22:47 22:44 09/15/2020 21:46 Hospitalization Ordered by Royer Cline MD for Inpatient mw Admission. Preliminary diagnosis is Dehydration; Acute kidney failure, unspecified; CoVid 19 positive. Bed requested for Telemetry/MedSurg (Inpatient). Status is Inpatient Admission. Condition is Fair. Problem is an acute exacerbation. Symptoms have worsened. 23:21 22:47 09/15/2020 21:46 Hospitalization Ordered by Royer Cline MD for Inpatient snw Admission. Preliminary diagnosis is Dehydration; Acute kidney failure, unspecified; CoVid 19 positive. Bed requested for [facility] ER HOLD. Status is Inpatient Admission. Condition is Fair. Problem is an acute exacerbation. Symptoms have worsened. 09/16 05:46 11 23:21 09/15/2020 21:46 Hospitalization Ordered by Royer Cline MD for Inpatient mw Admission. Preliminary diagnosis is Dehydration; Acute kidney failure, unspecified; CoVid 19 positive hx, negative today. Bed requested for [facility] ER HOLD. Status is Inpatient Admission. Condition is Fair. Problem is an acute exacerbation. Symptoms have worsened. [facility] 09/16 08:14 05:46 09/15/2020 21:46 Hospitalization Ordered by Royer Cline MD for Inpatient Admission. Preliminary diagnosis is Dehydration; Acute kidney failure, unspecified; CoVid 19 positive hx, negative today. Bed requested for Telemetry/MedSurg (Inpatient). Status is Inpatient Admission. Condition is Fair. Problem is an acute exacerbation. Symptoms have worsened.
--- NOTE | 2020-09-15 21:47 | ER ---
Nurse's Notes [facility] Name: Gabriel Krishnamurthy Age: 65 yrs Sex: Male : 1955 Arrival Date: 09/15/2020 Time: 19:52 Bed 4 Private MD: Diagnosis: Dehydration;Acute kidney failure, unspecified;CoVid 19 positive hx, negative today Presentation: 09/15 19:56 Onset of symptoms was September 15, 2020. Care prior to arrival: Medication(s) given: sg Normal saline infusion, 500 mL, 150 mL IV initiated. 22 GA, in the left forearm. Transition of care: patient was received from another setting of care (long-term care facility), [facility]. 20:07 Chief complaint: EMS states: pt hypotensive and altered per [facility] staff, pt is more slow sg to respond to questions but is at his baseline per mentation, however BP is not normally in the 80's systolic. Upon arrival pt BP 70'/40's, pt awake per EMS. Coronavirus screen: Client reports previous positive COVID test result. Date of collection: September 01, 2020. Ebola Screen: Patient negative for fever greater than or equal to 101.5 degrees Fahrenheit, and additional compatible Ebola Virus Disease symptoms Patient denies exposure to infectious person. Patient denies travel to an Ebola-affected area in the 21 days before illness onset. No symptoms or risks identified at this time. Initial Sepsis Screen: Does the patient meet any 2 criteria? RR > 20 per min. Systolic BP < 90 mmHg. Does the patient have a suspected source of infection? Yes: Productive cough/pneumonia Dysuria/Frequency/Urgency/UTI Skin breakdown/wound. Risk Assessment: Do you want to hurt yourself or someone else? Patient reports no desire to harm self or others. 20:07 Acuity: BRENDAN 1 sg 20:07 Method Of Arrival: EMS: [facility] sg 23:17 Coronavirus screen: Client reports previous positive COVID test result. Date of sg collection: August 08, 2020. Coronavirus screen: Negative COVID 19 per todays swab. Historical: - Allergies: 20:12 No Known Allergies; sg - Home Meds: 20:12 acetaminophen 325 mg Oral tab 2 tabs every 6 hours [Active]; Arginaid Oral [Active]; sg ascorbic acid (vitamin C) 500 mg tab [Active]; aspirin 81 mg Oral chew 1 tab once daily [Active]; Bactrim DS 800-160 mg Oral tab 1 tab 2 times per day [Active]; benzocaine mucous membrane [Active]; docusate sodium 100 mg Oral cap 1 cap once daily [Active]; Flonase 50 mcg/actuation Nasal spsn 2 sprays once daily [Active]; lidocaine patch [Active]; lisinopril 20 mg Oral tab 1 tab once daily [Active]; multivitamin with minerals Oral tab [Active]; simvastatin 20 mg Oral tab 1 tab once daily [Active]; tramadol 50 mg Oral tab 1 tab every 8 hours [Active]; zinc lozenges Oral [Active]; Zofran (as hydrochloride) 4 mg Oral tab 1 tabs every 6 hours [Active]; - PMHx: 20:12 Cerebral Palsy; GERD; Hyperlipidemia; Hypertension; sg - Immunization history:: Adult Immunizations up to date. - Social history:: Smoking status: unknown. Screenin:06 Abuse screen: Denies threats or abuse. Nutritional screening: No deficits noted. ea Tuberculosis screening: No symptoms or risk factors identified. Fall Risk IV access (20 points). Assessment: 20:00 General: Appears comfortable, Behavior is calm, cooperative, quiet. Pain: Denies pain. mg2 Neuro: Level of Consciousness is awake, alert, Oriented to situation. Cardiovascular: Capillary refill < 3 seconds Patient's skin is warm and dry. Respiratory: Airway is patent Respiratory effort is even, unlabored, Respiratory pattern is regular, symmetrical. GI: No signs and/or symptoms were reported involving the gastrointestinal system. : No signs and/or symptoms were reported regarding the genitourinary system. EENT: No signs and/or symptoms were reported regarding the EENT system. Derm: Skin is intact, with poor turgor. Musculoskeletal:. 21:50 Reassessment: Patient and/or family updated on plan of care and expected duration. Pain ea level reassessed. Patient is alert, oriented x 3, equal unlabored respirations, skin warm/dry/pink. 22:46 Reassessment: [facility] contacted, Spoke with Sonya who txfr me to Carol Nurse at [facility] for pt, reports positive test for Covid from this ER, sample room supervisor notified, ERP notified, pt neg swab today, pt to go to med surg tele floor if bed available, ERP updated Hospital provider , pt ok to go to regular bed for admission. 22:48 Reassessment: Carol Nurse for pt at [facility] to fax pt records to [phone] for pt sg admission. 23:40 Reassessment:. mg2 09/16 00:01 Reassessment: Pt admitted to ER hold. ea 00:54 Reassessment: this pt has been placed on a hospital bed, with a waffle air mattress, pt sg turned to left side lying position, stage 1 pressure ulcer noted to buttocks, a dressing that is intact clean and dry is noted to the upper back at this time. 06:06 Reassessment: patient has a room already and he is to be shifted after shift change. mg2 Vital Signs: 09/15 19:56 BP 87 / 42; Pulse 45; Resp 16; Temp 97.7; Pulse Ox 94% on R/A; Weight 48.99 kg; Height sg 5 ft. 8 in. (172.72 cm); 22:05 BP 93 / 73; Pulse 87; Resp 20; Pulse Ox 95% on R/A; mg2 22:07 BP 131 / 97; Pulse 84; Resp 17; Temp 97.8; Pulse Ox 97% on R/A; ea 19:56 Body Mass Index 16.42 (48.99 kg, 172.72 cm) sg ED Course: 19:52 Patient arrived in ED. am2 19:56 Arm band placed on. sg 19:59 [facility] snw 19:59 Colin Gutierrez MD is Attending Physician. snw 20:00 Initial lab(s) drawn, by co, sent to lab. First set of blood cultures drawn. Second set sg of blood cultures drawn by me. Inserted saline lock: 20 gauge in right antecubital area, using aseptic technique. Blood collected. 20:08 Sawpnil Lopes, ARMEN is Primary Nurse. mg2 20:10 Triage completed. sg 21:00 Chest Single View XRAY In Process Unspecified. EDMS 21:06 Patient has correct armband on for positive identification. Placed in gown. Bed in low ea position. Call light in reach. Side rails up X2. 21:30 Coud inserted, using sterile technique, 14 Fr. To gravity drainage. Patient tolerated sg well. 21:44 Royer Cline MD is Hospitalizing Provider. snw 22:07 No provider procedures requiring assistance completed. Patient admitted, IV remains in ea place. Administered Medications: 20:14 CANCELLED (Duplicate Order): NS 0.9% (30 ml/kg) 30 ml/kg IV at bolus once; Sepsis snw Protocol 20:31 Drug: HydroCORTISONE 100 mg Route: IVP; Site: right antecubital; mg2 22:14 Follow up: Response: No adverse reaction ea 20:31 Drug: NS 0.9% 1000 ml Route: IV; Rate: 1 bolus; Site: right antecubital; mg2 22:14 Follow up: Response: No adverse reaction; IV Status: Completed infusion; IV Intake: ea 1000ml 20:35 Drug: D5W 1000 ml Route: IV; Rate: 100 ml/hr; Site: right antecubital; ea 22:15 Follow up: Response: No adverse reaction; IV Status: Infusion continued upon admission ea 22:06 Drug: Thiamine 100 mg Route: IV; Rate: bolus; Site: right antecubital; ea 22:15 Follow up: Response: No adverse reaction; IV Status: Completed infusion ea Intake: 22:05 IV: 500ml (IV Fluid); Total: 500ml. sg 22:14 IV: 1000ml; Total: 1500ml. ea 22:05 by EMS JUDGE'S CLERK sg Outcome: 21:46 Decision to Hospitalize by Provider. snw 22:08 Condition: stable ea 22:08 Instructed on the need for admit, Demonstrated understanding of instructions. 22:23 Admitted to ICU accompanied by tech, via stretcher, room 2, with chart, Report called mg2 to ARMEN Alcazar 23:40 Admitted to ER Hold. [facility]. mg2 09/16 08:14 Patient left the ED. ss Signatures: Dispatcher [employer] EDMS Lazarus Cheng RN Nesha Reina FNP-C FNP-Inocencia Burch RN RN Chelsey Mckeon Elena, RN RN ea Gardose, Michele, RN RN mg2 Corrections: (The following items were deleted from the chart) 09/15 22:32 19:56 Care prior to arrival: Medication(s) given: Normal saline infusion, 150 mL IV sg initiated. 22 GA, in the left forearm, sg 22:32 19:56 Transition of care: patient was not received from another setting of care. sg 23:18 20:07 Coronavirus screen: Client reports previous positive COVID test result. Date of sg collection: September 09, 2020 sg
[2020-09-15] MEDS ORDERED: THIAMINE 200 MG/2 ML INJ ONE (22:14)
--- NOTE | 2020-09-15 22:33 | P.HP ---
Certification for Inpatient Patient admitted to: Inpatient With expected LOS: >2 Midnights Patient will require the following post-hospital care: Assisted Practitioner: I am a practitioner with admitting privileges, knowledge of patient current condition, hospital course, and medical plan of care. Services: Services provided to patient in accordance with Admission requirements found in Title 42 Section 412.3 of the Code of Federal Regulations Patient History Date of Service: 09/15/20 Primary Care Provider: Marlyn Reason for admission: dehydration. Acute renal failure History of Present Illness: Patient of mine in [facility]. The patient has a history of cerebral palsy, htn, dysphagia and depression The patient had a recent covid infections. The patient had no symptoms. He did develop a pneumonia the week before. In the long term the patient has not been eating well and not interacting as usual. Per the staff he has lost 30lbs in the last month. The patient was very hypotensive and was sent to the ER. The patients brother was at the bedside. He has a history of dysphagia since childhood. He has had to have dilation in the past. This may be the cause of his weight loss. However he may have been depressed by all his recent troubles. I had started him on sertarline 50mg po qday this In the long term he was given fluids. Found to have a creatine of 3. His baseline is 1. He has no complaints. Allergies No Known Allergies Allergy (Verified 09/02/20 06:55) Home Medications: Acetaminophen [Tylenol] 325 mg PO Q6HP PRN 09/02/20 Arginine/Ascorbate Sod/David AC [Arginaid Powder] 1 packet PO BID 09/02/20 Ascorbic Acid [C-500] 500 mg PO BID 09/02/20 Ascorbic Acid/Zinc [Zinc Lozenges] 1 lozenge PO Q6HP PRN 09/02/20 Aspirin Chewable [Aspirin Chewable*] 81 mg PO DAILY 09/02/20 Benzocaine [Oral Pain Relief] 1 susana PO Q4HP PRN 09/02/20 Docusate [Colace Cap*] 100 mg PO DAILY 09/02/20 Fluticasone [Flonase 50MCG Nasal [place]*] 2 sprays IH DAILYPRN PRN 09/02/20 Lidocaine 4% Patch [Lidoderm 5% Patch*] 1 patch TOP DAILY 09/02/20 Lisinopril [Zestril] 20 mg PO DAILY 09/02/20 Multivitamin [Multiple Vitamins] 1 tab PO DAILY 09/02/20 Ondansetron [Zofran (Odt)*] 4 mg PO Q6HP PRN 09/02/20 Simvastatin 20 mg PO DAILY 09/02/20 Smz./Tmp. [Bactrim Ds 800 MG/160 MG*] 1 tab PO BID 09/02/20 traMADol HCL [Ultram*] 50 mg PO Q8HP PRN 09/02/20 Apixaban [Eliquis] 5 mg PO BID 30 Days #60 tablet 09/05/20 Emollient Combination No.92 [Lubriderm Daily Moisture] 473 ml TP DAILY 30 Days #120 lotion 09/05/20 Levofloxacin [Levaquin] 500 mg PO DAILY 5 Days #5 tablet 09/05/20 - Past Medical/Surgical History -: Hypertension -: Hyperlipidemia -: Cerebral palsy Review of Systems 10-point ROS is otherwise unremarkable General: Weakness Physical Examination - Physical Exam General: Alert, Oriented x1, Cooperative HEENT: Atraumatic, PERRLA, Mucous membr. moist/pink, EOMI, Sclerae nonicteric Neck: Supple, 2+ carotid pulse no bruit, No LAD, Without JVD or thyroid abnorm ality Respiratory: Clear to auscultation bilaterally, Normal air movement Cardiovascular: Regular rate/rhythm, Normal S1 S2 Gastrointestinal: Normal bowel sounds, No tenderness Musculoskeletal: No tenderness Integumentary: No rashes, Other (tenting of the skin) Neurological: Normal gait, Normal speech, Normal strength at 5/5 x4 extr, Normal tone, Normal affect Lymphatics: No axilla or inguinal lymphadenopathy - Studies Laboratory Data (last 24 hrs) 09/15/20 20:25: PT 24.2 H, INR 2.08, APTT 32.2 09/15/20 20:01: WBC 20.1 H* D, Hgb 14.4 D, Hct 44.2 D, Plt Count 385 D 09/15/20 20:01: Sodium 162 H*, Potassium 4.3, BUN 79 H D, Creatinine 3.11 H D, Glucose 131 H, Phosphorus 5.3 H, Magnesium 3.2 H D, Total Bilirubin 0.3, AST 20, ALT 28, Alkaline Phosphatase 100, Amylase 120 H, Lipase 572 H Assessment and Plan - Problems (Diagnosis) (1) Dysphagia Current Visit: Yes Status: Acute Plan: This may be the reason for the patients loss of appetite and subsequent weight loss. Will get and esophogram. Will consult Dr. Bañuelos. If he has multiple strictures we would need to transfer him to the [facility] for a stent placement. Otherwise we may be able to dilate him or place a peg tube. His brother and POA does not have an objection to PEG Placement at this time. Qualifiers: Dysphagia type: unspecified Qualified Code(s): R13.10 - Dysphagia, unspecified (2) Acute renal failure Current Visit: Yes Status: Acute Plan: Most likely prerenal due to dehydration and muscle breakdown. Will start him on fluids If no improvement by the morning on fluid therapy will consider consulting Nephrology. Qualifiers: Acute renal failure type: unspecified Qualified Code(s): N17.9 - Acute kidney failure, unspecified (3) Severe protein-energy malnutrition Current Visit: Yes Status: Acute Plan: Will need to devise a way to get him eating better. Will discuss with Dr. Bañuelos. He may do well with an egd and dilatation. A Peg tube may also be an option. (4) Malnutrition compromising bodily function Current Visit: Yes Status: Acute (5) Depression Current Visit: Yes Status: Acute Plan: he has recently been started on Sertaraline. Will continue this. Considering all that the paitent has been throught in the last few weeks this is to be expected. 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
[2020-09-16] MEDS ORDERED: D5 0.45 NS 1,000 ML IV ONE (00:08)
[2020-09-16 00:14] VITALS: BMI 16.4
[2020-09-16] MEDS: D5 0.45 NS 1,000 ML IV SCH ×3 (00:30→20:11)
[2020-09-16 01:16] LABS: Urine Amorphous Sediment 2+ /HPF (NONE SEEN); Urine Bacteria >50 /HPF (NONE SEEN); Urine Culture Reflex Order NOT NEEDED; Urine Mucus 1+ /HPF (NONE SEEN); Urine RBC <5 /HPF (NONE SEEN)
[2020-09-16 03:53] LABS: Urine Blood 1+ (NEG); Urine Glucose NEGATIVE (NEG); Urine Protein NEGATIVE (NEG)
[2020-09-16 06:20] LABS: Albumin 2.2 g/dL (3.4-5.0); Bilirubin Total 0.3 mg/dL (0.2-1.0); Magnesium 2.9 mg/dL (1.8-2.4); Potassium 4.3 mmol/L (3.5-5.1); Protein, Total 6.1 g/dL (6.4-8.2)
[2020-09-16] MEDS: SERTRALINE HCL 50 MG TAB PO SCH (09:00)
--- NOTE | 2020-09-16 09:04 | P.PN ---
Subjective Date of Service: 09/16/20 Primary Care Provider: Marlyn Chief Complaint: dehydration. Acute renal failure Subjective: Improving Review of Systems 10-point ROS is otherwise unremarkable General: Weakness Physical Examination - Vital Signs Temperature: 98 F Blood Pressure: 140/71 Pulse: 56 Respirations: 18 Pulse Ox (%): 56 - Physical Exam General: Alert, In no apparent distress HEENT: Atraumatic, PERRLA, EOMI Neck: Supple, JVD not distended Respiratory: Clear to auscultation bilaterally, Normal air movement Cardiovascular: Regular rate/rhythm, Normal S1 S2 Gastrointestinal: Normal bowel sounds, No tenderness Musculoskeletal: No tenderness Integumentary: No rashes Neurological: Normal speech, Normal tone, Normal affect Lymphatics: No axilla or inguinal lymphadenopathy - Studies Laboratory Data (last 24 hrs) 09/15/20 20:25: PT 24.2 H, INR 2.08, APTT 32.2 09/15/20 20:01: WBC 20.1 H* D, Hgb 14.4 D, Hct 44.2 D, Plt Count 385 D 09/15/20 20:01: Sodium 162 H*, Potassium 4.3, BUN 79 H D, Creatinine 3.11 H D, Glucose 131 H, Phosphorus 5.3 H, Magnesium 3.2 H D, Total Bilirubin 0.3, AST 20, ALT 28, Alkaline Phosphatase 100, Amylase 120 H, Lipase 572 H Assessment & Plan - Problems (Diagnosis) (1) Dysphagia Current Visit: Yes Status: Acute Plan: This may be the reason for the patients loss of appetite and subsequent weight loss. Will get and esophogram. Will consult Dr. Bañuelos. If he has multiple strictures we would need to transfer him to the [facility] for a stent placement. Otherwise we may be able to dilate him or place a peg tube. His brother and POA does not have an objection to PEG Placement at this time. 09/16/20 Will get the swallow study. Consult speach therapy and nurtition. Will start him on ensure shakes. Which he has been tolerating in the office. Qualifiers: Dysphagia type: unspecified Qualified Code(s): R13.10 - Dysphagia, unspecified (2) Acute renal failure Current Visit: Yes Status: Acute Plan: Most likely prerenal due to dehydration and muscle breakdown. Will start him on fluids If no improvement by the morning on fluid therapy will consider consulting Nephrology. 09/16/20 Improving with fluids. Qualifiers: Acute renal failure type: unspecified Qualified Code(s): N17.9 - Acute kidney failure, unspecified (3) Severe protein-energy malnutrition Current Visit: Yes Status: Acute Plan: Will need to devise a way to get him eating better. Will discuss with Dr. Bañuelos. He may do well with an egd and dilatation. A Peg tube may also be an option. (4) Malnutrition compromising bodily function Current Visit: Yes Status: Acute (5) Depression Current Visit: Yes Status: Acute Plan: he has recently been started on Sertaraline. Will continue this. Considering all that the paitent has been throught in the last few weeks this is to be expected. 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
--- NOTE | 2020-09-16 11:03 | RAD REPORT ---
EXAM DESCRIPTION: RAD - Esophagram Only - 09/16/2020 10:23 am CLINICAL HISTORY: malnuorished, anorexia Difficulty swallowing COMPARISON: Barium Swallow Modified dated 10/21/2018 FINDINGS: Exam was very limited by the patient's clinical status. Barium was administered to the patient via straw. The patient was able to swallow and barium was seen to pass through the esophagus into the stomach, however there was very poor peristalsis a significan t amount of barium remained in stasis within the esophagus. Total fluoroscopy time: 1.2 minutes Number of images acquired: 15 IMPRESSION: The examination was very limited by the patient's clinical status. The patient was able a swallow the barium however there was significant stasis of the barium in the esophagus due to quite poor peristalsis. No aspiration was observed.
[2020-09-16] MEDS ORDERED: LEVOFLOXACIN 750MG/D5W 150 ML IV ONE (14:00)
[2020-09-16] MEDS ORDERED: Levofloxacin 250mg IV 250 MG/50 ML BAG IV SCH (14:00)
[2020-09-16] MEDS: ENOXAPARIN 30 MG/0.3 ML SQ SCH (18:12)
[2020-09-16] MEDS: ENSURE ENLIVE 237 ML CAN PO SCH ×2 (20:09→20:39)
[2020-09-17] MEDS: D5 0.45 NS 1,000 ML IV SCH ×3 (03:23→20:38)
[2020-09-17 06:20] LABS: Bilirubin Total 0.4 mg/dL (0.2-1.0); Potassium 3.7 mmol/L (3.5-5.1); Protein, Total 5.4 g/dL (6.4-8.2)
[2020-09-17] MEDS ORDERED: POTASSIUM PHOS IN 0.9 % NACL 15 MMOL/250 ML BAG IV ONE (08:00)
[2020-09-17] MEDS: SERTRALINE HCL 50 MG TAB PO SCH (09:26)
[2020-09-17] MEDS: ENSURE ENLIVE 237 ML CAN PO SCH ×2 (09:26→21:00)
--- NOTE | 2020-09-17 10:31 | P.PN ---
Subjective Date of Service: 09/17/20 Primary Care Provider: Marlyn Chief Complaint: dehydration. Acute renal failure Subjective: Improving Review of Systems 10-point ROS is otherwise unremarkable Physical Examination - Vital Signs Temperature: 97.9 F Blood Pressure: 119/73 Pulse: 62 Respirations: 16 Pulse Ox (%): 97 - Physical Exam General: Alert, In no apparent distress HEENT: Atraumatic, PERRLA, EOMI Neck: Supple, JVD not distended Respiratory: Clear to auscultation bilaterally, Normal air movement Cardiovascular: Regular rate/rhythm, Normal S1 S2 Gastrointestinal: Normal bowel sounds, No tenderness Musculoskeletal: No tenderness Integumentary: No rashes Neurological: Normal speech, Normal tone, Normal affect Lymphatics: No axilla or inguinal lymphadenopathy Assessment & Plan - Problems (Diagnosis) (1) Dysphagia Current Visit: Yes Status: Acute Plan: This may be the reason for the patients loss of appetite and subsequent weight loss. Will get and esophogram. Will consult Dr. Bañuelos. If he has multiple strictures we would need to transfer him to the [facility] for a stent placement. Otherwise we may be able to dilate him or place a peg tube. His brother and POA does not have an objection to PEG Placement at this time. 09/17 is on a pureed diet. Have spoken to Dr. Bañuelos regarding a history of strictures Qualifiers: Dysphagia type: unspecified Qualified Code(s): R13.10 - Dysphagia, unspecif ied (2) Acute renal failure Current Visit: Yes Status: Acute Plan: Most likely prerenal due to dehydration and muscle breakdown. Will start him on fluids If no improvement by the morning on fluid therapy will consider consulting Nephrology. 09/16/20 Improving with fluids. is 1.78 today. His baseline creatine is 1.01. Will continue fluids Qualifiers: Acute renal failure type: unspecified Qualified Code(s): N17.9 - Acute kidney failure, unspecified (3) Severe protein-energy malnutrition Current Visit: Yes Status: Acute Plan: Will need to devise a way to get him eating better. Will discuss with Dr. Bañuelos. He may do well with an egd and dilatation. A Peg tube may also be an option. (4) Malnutrition compromising bodily function Current Visit: Yes Status: Acute (5) Depression Current Visit: Yes Status: Acute Plan: he has recently been started on Sertaraline. Will continue this. Considering all that the paitent has been throught in the last few weeks this is to be expected. Qualifiers: Depression Type: major depressive disorder Active/Remission status: currently active Psychotic features: without psychotic features (6) Cerebral palsy Current Visit: No Status: Acute Plan: care home He is geting [facility] care and PT at [place] Qualifiers: Cerebral palsy type: spastic diplegic Qualified Code(s): G80.1 - Spastic diplegic cerebral palsy Discharge Plan: Correction Plan to discharge in: 48 Hours - Code Status/Comfort Care Code Status Assessed: No Physician Review: Patient Assessed, Agree with Above Assessment and Plan Critical Care: No Time Spent Managing Pts Care (In Minutes): 25
[2020-09-17 15:04] LABS: Absolute Lymphocytes (CBC) 2.2 K/uL (0.7-4.9); Basophils % 0.6 % (0-1.3); Hematocrit 31.8 % (39.6-49.0); Lymphocytes % 16.3 % (15.3-44.8); MPV 8.7 fL (7.6-11.3); RBC Red Blood Cell Count 3.42 M/uL (4.33-5.43)
[2020-09-17 15:08] LABS: Protime INR 1.53
[2020-09-17 15:20] LABS: Magnesium 2.6 mg/dL (1.8-2.4); Phosphorus 3.5 mg/dL (2.5-4.9); Potassium 4.1 mmol/L (3.5-5.1)
[2020-09-17] MEDS ORDERED: D5 0.45 NS 1,000 ML IV SCH (16:53)
[2020-09-17] MEDS: ENOXAPARIN 30 MG/0.3 ML SQ SCH (18:22)
[2020-09-18] MEDS: D5 0.45 NS 1,000 ML IV SCH ×3 (03:11→20:45)
[2020-09-18 06:36] LABS: Albumin 1.9 g/dL (3.4-5.0); Bilirubin Total 0.3 mg/dL (0.2-1.0); Potassium 3.7 mmol/L (3.5-5.1)
[2020-09-18] MEDS: ENSURE ENLIVE 237 ML CAN PO SCH ×2 (09:00→20:46)
[2020-09-18] MEDS: SERTRALINE HCL 50 MG TAB PO SCH (09:00)
[2020-09-18] MEDS ORDERED: D5 0.45 NS 1,000 ML IV SCH (10:00)
--- NOTE | 2020-09-18 10:02 | P.PN ---
Subjective Date of Service: 09/18/20 Primary Care Provider: Marlyn Chief Complaint: dehydration. Acute renal failure Subjective: No new changes Review of Systems 10-point ROS is otherwise unremarkable Physical Examination - Vital Signs Temperature: 99 F Blood Pressure: 111/63 Pulse: 62 Respirations: 17 Pulse Ox (%): 94 - Physical Exam General: Alert, In no apparent distress HEENT: Atraumatic, PERRLA, EOMI Neck: Supple, JVD not distended Respiratory: Clear to auscultation bilaterally, Normal air movement Cardiovascular: Regular rate/rhythm, Normal S1 S2 Gastrointestinal: Normal bowel sounds, No tenderness Musculoskeletal: No tenderness Integumentary: No rashes Neurological: Normal speech, Normal tone, Normal affect Lymphatics: No axilla or inguinal lymphadenopathy - Studies Microbiology Data (last 24 hrs): 09/15/20 20:07 Blood - Blood Anaerobic Blood Culture - Final Assessment & Plan - Problems (Diagnosis) (1) End of life care Current Visit: Yes Status: Chronic Plan: Have spent 20 min discussing with his brother. Currently there is no reason why Mr Krishnamurthy is not eating. The egd may show some strictures. We are considering a PEG tube. However this could be depressiion or acceptance. He has been asking the brother about lost loved ones. Has said once about possibly dying soon. If this is depression. Sertarline and PT are appropriate. However it is difficult treating patients who have accepted . So we had a 20min conversation. Hopefully not necessary, but it is best to prepare family early. Will wait for the EGD results. May consider a temporary PEG. If continues to not eat than possible hospice consult. (2) Dysphagia Current Visit: Yes Status: Acute Plan: This may be the reason for the patients loss of appetite and subsequent weight loss. Will get and esophogram. Will consult Dr. Bañuelos. If he has multiple strictures we would need to transfer him to the [facility] for a stent pl acement. Otherwise we may be able to dilate him or place a peg tube. His brother and POA does not have an objection to PEG Placement at this time. 09/17 is on a pureed diet. Possible egd today. Possible PEG Qualifiers: Dysphagia type: unspecified Qualified Code(s): R13.10 - Dysphagia, unspecified (3) Acute renal failure Current Visit: Yes Status: Acute Plan: Most likely prerenal due to dehydration and muscle breakdown. Will start him o n fluids If no improvement by the morning on fluid therapy will consider consulting Nephrology. 09/16/20 Improving with fluids. is 1.4 today. Qualifiers: Acute renal failure type: unspecified Qualified Code(s): N17.9 - Acute kidney failure, unspecified (4) Severe protein-energy malnutrition Current Visit: Yes Status: Acute Plan: Will need to devise a way to get him eating better. Will discuss with Dr. Bañuelos. He may do well with an egd and dilatation. A Peg tube may also be an option. (5) Malnutrition compromising bodily function Current Visit: Yes Status: Acute (6) Depression Current Visit: Yes Status: Acute Plan: he has recently been started on Sertaraline. Will continue this. Considering all that the paitent has been throught in the last few weeks this is to be expected. Qualifiers: Depression Type: major depressive disorder Active/Remission status: currently active Psychotic features: without psychotic features (7) Cerebral palsy Current Visit: No Status: Acute Plan: prison He is geting retirement care and PT at [place] Qualifiers: Cerebral palsy type: spastic diplegic Qualified Code(s): G80.1 - Spastic diplegic cerebral palsy (8) Hypernatremia Current Visit: Yes Status: Acute Plan: Will bolus 500 cc of d5 1/2 N saline. Will check a post bmp for the staff Discharge Plan: Care Home Plan to discharge in: 48 Hours - Code Status/Comfort Care Code Status Assessed: No Physician Review: Patient Assessed, Agree with Above Assessment and Plan Critical Care: No Time Spent Managing Pts Care (In Minutes): 40
[2020-09-18] MEDS ORDERED: D5 0.45 NS 1,000 ML IV ONE (10:49)
[2020-09-18] MEDS: D5 0.45 NS 500 ML IV SCH ×7 (10:52→17:00)
[2020-09-18 11:03] LABS: Potassium 3.6 mmol/L (3.5-5.1)
[2020-09-18 12:31] LABS: Potassium 3.6 mmol/L (3.5-5.1)
[2020-09-18] MEDS: Levofloxacin500mg IV 500 MG/100 ML BAG IV SCH (14:19)
[2020-09-18] MEDS: ENOXAPARIN 30 MG/0.3 ML SQ SCH (17:00)
[2020-09-18] MEDS ORDERED: propofoL 200 MG/20 ML VIAL IV ONE ×3 (18:54→18:55)
[2020-09-18] MEDS ORDERED: LIDOCAINE 1% MPF 5 ML VIAL ONE (18:55)
[2020-09-18] MEDS ORDERED: EPHEDRINE SULF 50 MG/ML VIAL ONE (19:50)
--- NOTE | 2020-09-18 20:47 | CON ---
Date of Consultation: 09/16/2020 Reason For Consultation: Dehydration, sepsis, acute renal failure, abdominal esophagram. History Of Present Illness: The patient is a 65-year-old white male with history of cerebral palsy, hypertension, dysphasia, depression, hyperlipidemia. Patient presented to hospitalization due to sev ere dehydration from [facility]. Patient had been refusing to eat or drink recently. The patient had a COVID infection it appears recently as well and developed pneumonia the week before. H e has lost 30 pounds over the last month, was hypotensive in the ER with severe dehydration. His sod ium was up to 161. His creatinine was up to 3.11, and his white count was 20.1 with 85% polys. It a ppears he has depression. He is on sertraline for this, unclear how long he has been on that. Past Medical History: Significant for hypertension, hyperlipidemia, cerebral palsy, dysphagia, unabl e to speak, and depression. Medications: Tylenol, Arginaid powder, vitamin C, zinc, aspirin, benzocaine, Colace, fluticasone, Li doderm, lisinopril, multivitamin, Zofran, Zocor, Bactrim, Ultram, Eliquis, Lubriderm, and Levaquin. Allergies: NKDA. Review of Systems: He has depression, decreased p.o. intake, dehydration, sepsis, with no chest pain, shortness of breat h, seizure, syncope, melena, hematochezia, hematemesis, coffee-ground emesis, hematuria, dysuria poly dipsia. No chest pain, shortness of breath. No joint pains noted. Physical Examination: Vital signs: He is 5 feet 8 inches, 180 pounds, BMI of 16 kg/sq m. HEENT: Normocephalic, atraumatic. Anicteric. Pupils equal, round, and reactive to light. Extraocu lar movements are intact. Oropharynx clear. Neck: Supple. No masses. Respirations: Clear to auscultation bilaterally. Cardiac: Regular rate and rhythm. No gallop or rubs. Abdominal: Positive bowel sounds. Soft, nontender, nondistended. Positive bowel sounds. No hepato splenomegaly. Extremities: No clubbing, cyanosis, or edema. NEURO: Is able to answer some questions, very limited due to his severe diffuse cerebral palsy, unab le to move extremities very well. Somewhat limited movement of his extremities as well. Data: Yesterday, patient had white count of 20.1, hemoglobin 14.4, hematocrit 44.2, MCV of 93, plate let count of 385, polys of 85%, lymphocytes 9%, monocytes 6%. The patient has a PT of 24.2, INR of 2 .1, PTT of 32.2. Sodium 161, potassium 4.3, chloride 130, bicarb 25, BUN of 71, creatinine of 2.51, glucose 154, calcium 7.6, magnesium 2.9, ferritin 216.9, total bilirubin 0.3, AST of 13, ALT of 21, a lkaline phosphatase of 78, total protein 6.1, albumin 2.2. UA shows greater than 50 bacteria, but le ss than 5 squamous epithelial cells, but there were no white cells. Leukocyte esterase and nitrite w ere both negative. Serology: COVID-19 serologies were negative on this admission. Under inflated l ungs. The patient had a barium swallow today, which revealed barium was served by straw. Barium was seen to pass through the esophagus into the stomach. However, there was very poor peristalsis with a significant amount of barium retained in stasis within the esophagus. So, possible motility disord er. Impression: 1.Dehydration with decreased p.o. intake, which may be due to motility disorder of the esophagus and /or depression, which has been lately evident with severe hypernatremia, sodium 161 and renal failure , creatinine 3.11. 2.Depression, on sertraline. We will continue this and optimize depression therapy in this patient with decreased p.o. intake for unclear reasons. 3.Sepsis. White count of 20.1 with 85% polys. Unclear if the chest x-ray was largely unremarkable. The UA was equivocal as below with greater than 50 bacteria. Nitrite and leukocyte esterase are ne gative, but he may have a urinary tract infection. 4.Hypernatremia. Sodium 161. 5.Acute renal failure, creatinine of 3.11. 6.Protein-calorie malnutrition with albumin of 2.2. 7.Abnormal esophagram with significant stasis in the esophagus, but barium is seen going from the es ophagus into the stomach. There was no aspiration. 8.Coagulopathy. INR of 2.08. We will repeat INR to see if it is improved. 9.History of cerebral palsy, hypertension, depression, hyperlipidemia, and dysphasia, unable to spea k well. Recommendations: 1.Sit up with all meals and remain erect or sitting for 1 hour after meals. 2.Consider Xanax 0.25 mg p.o. q.a.m. for this probable motility disorder of esophagus. 3.Speech Therapy to evaluate and recommend diet for this patient, especially since no aspiration not ed. 4.Monitor labs. 5.Continue IV fluids and start IV antibiotics and the patient with sepsis with a white count of 2.17 . Patient has urinary tract infections with greater than 50 bacteria noted on UA. 6.Depression. Optimized depression medications for this patient. Addendum: I spoke with primary care physician the patient has a history of esophageal strictures, th erefore would like for us to evaluate for that. Also, the patient's primary care physician and the f philip would like us to consider him for enteral nutrition since the patient obviously is not eating a t the long term and has protein-calorie malnutrition with albumin of 2.2. We will also check a pr e-albumin level in this patient. MARGIE/SHELLEY Voice ID: [id number] Report ID: [id number]
[2020-09-19] MEDS ORDERED: JEVITY 1.2 CAL LIQUID 1,000 ML BOT FT SCH (08:00)
[2020-09-19] MEDS: SERTRALINE HCL 50 MG TAB PO SCH (09:21)
[2020-09-19] MEDS ORDERED: JEVITY 1.2 CAL LIQUID 1,000 ML BOT RTH SCH (10:00)
--- NOTE | 2020-09-19 15:17 | P.PN ---
Subjective Date of Service: 09/19/20 Primary Care Provider: Marlyn Chief Complaint: dehydration. Acute renal failure Subjective: Improving (Patient had a peg placed by Dr Bañuelos this morning. Feeds are started) Review of Systems 10-point ROS is otherwise unremarkable Physical Examination - Vital Signs Temperature: 97.1 F Blood Pressure: 112/69 Pulse: 63 Respirations: 17 Pulse Ox (%): 96 - Physical Exam General: Alert, In no apparent distress HEENT: Atraumatic, PERRLA, EOMI Neck: Supple, JVD not distended Respiratory: Clear to auscultation bilaterally, Normal air movement Cardiovascular: Regular rate/rhythm, Normal S1 S2 Gastrointestinal: Normal bowel sounds, No tenderness Musculoskeletal: No tenderness Integumentary: No rashes Neurological: Normal speech, Normal tone, Normal affect Lymphatics: No axilla or inguinal lymphadenopathy Assessment & Plan - Problems (Diagnosis) (1) Dysphagia Current Visit: Yes Status: Acute Plan: This may be the reason for the patients loss of appetite and subsequent weight loss. Will get and esophogram. Will consult Dr. Bañuelos. If he has multiple strictures we would need to transfer him to the [facility] for a stent placement. Otherwise we may be able to dilate him or place a peg tube. His brother and POA does not have an objection to PEG Placement at this time. 09/17 is on a pureed diet. egd today. PEG placed Qualifiers: Dysphagia type: unspecified Qualified Code(s): R13.10 - Dysphagia, unspecified (2) End of life care Current Visit: Yes Status: Chronic Plan: Have spent 20 min discussing with his brother. Currently there is no reason why Mr Krishnamurthy is not eating. The egd may show some strictures. We are considering a PEG tube. However this could be depressiion or acceptance. He has been asking the brother about lost loved ones. Has said once about possibly dying soon. If this is depression. Sertarline and PT are appropriate. However it is diff icult treating patients who have accepted . So we had a 20min conversation. Hopefully not necessary, but it is best to prepare family early. Will wait for the EGD results. May consider a temporary PEG. If continues to not eat than possible hospice consult. (3) Acute renal failure Current Visit: Yes Status: Acute Plan: Most likely prerenal due to dehydration and muscle breakdown. Will start him on fluids If no improvement by the morning on fluid therapy will consider consulting Nephrology. 09/16/20 Improving with fluids. is 1.4 today. Qualifiers: Acute renal failure type: unspecified Qualified Code(s): N17.9 - Acute kidney failure, unspecified (4) Severe protein-energy malnutrition Current Visit: Yes Status: Acute Plan: Will need to devise a way to get him eating better. Will discuss with Dr. Bañuelos. He may do well with an egd and dilatation. A Peg tube may also be an option. (5) Malnutrition compromising bodily function Current Visit: Yes Status: Acute (6) Depression Current Visit: Yes Status: Acute Plan: he has recently been started on Sertaraline. Will continue this. Considering all that the paitent has been throught in the last few weeks this is to be expected. 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 Will check a post bmp for the staff Discharge Plan: Halfway Plan to discharge in: 24 Hours - Code Status/Comfort Care Code Status Assessed: No Physician Review: Patient Assessed, Agree with Above Assessment and Plan Critical Care: No Time Spent Managing Pts Care (In Minutes): 20
[2020-09-19] MEDS: ENOXAPARIN 40 MG/0.4 ML SQ SCH (17:20)
[2020-09-19] MEDS: D5 0.45 NS 1,000 ML IV SCH ×2 (17:21→20:22)
[2020-09-19] MEDS: JEVITY 1.2 CAL LIQUID 1,000 ML BOT FT SCH (17:22)
[2020-09-20] MEDS: D5 0.45 NS 1,000 ML IV SCH ×2 (02:00→06:27)
[2020-09-20 06:04] LABS: Magnesium 1.8 mg/dL (1.8-2.4); Phosphorus 2.2 mg/dL (2.5-4.9); Potassium 3.3 mmol/L (3.5-5.1)
[2020-09-20] MEDS ORDERED: Pantoprazole (granules) 40 MG/BLIST PACKET FT SCH (06:30)
[2020-09-20] MEDS ORDERED: POTASSIUM PHOS IN 0.9 % NACL 15 MMOL/250 ML BAG IV ONE (08:00)
[2020-09-20] MEDS: JEVITY 1.2 CAL LIQUID 1,000 ML BOT FT SCH (08:24)
[2020-09-20] MEDS: SERTRALINE HCL 50 MG TAB PO SCH (08:26)
[2020-09-20 11:07] VITALS: O2SAT 95
[2020-09-20] MEDS ORDERED: MAGNESIUM SULFATE 1 gm IVPB 1 GM/100 ML BAG IV ONE (12:00)
--- NOTE | 2020-09-20 12:14 | P.DS ---
Admission Date: 09/15/20 Discharge Date: 09/20/20 Primary Care Provider: Marlyn Disposition: TRANSFER TO [facility] Discharge Condition: FAIR Reason for Admission: dehydration. Acute renal failure - Problems (1) Dysphagia Current Visit: Yes Status: Acute Qualifiers: Dysphagia type: unspecified Qualified Code(s): R13.10 - Dysphagia, unspecified (2) End of life care Current Visit: Yes Status: Chronic (3) Acute renal failure Current Visit: Yes Status: Acute Qualifiers: Acute renal failure type: unspecified Qualified Code(s): N17.9 - Acute kidney failure, unspecified (4) Severe protein-energy malnutrition Current Visit: Yes Status: Acute (5) Malnutrition compromising bodily function Current Visit: Yes Status: Acute (6) Depression Current Visit: Yes Status: Acute Qualifiers: Depression Type: major depressive disorder Active/Remission status: currently active Psychotic features: without psychotic features (7) Cerebral palsy Current Visit: No Status: Acute Qualifiers: Cerebral palsy type: spastic diplegic Qualified Code(s): G80.1 - Spastic diplegic cerebral palsy (8) Hypernatremia Current Visit: Yes Status: Acute Brief History of Present Illness: Patient of mine in [facility]. The patient has a history of cerebral palsy, htn, dysphagia and depression The patient had a recent covid infections. The patient had no symptoms. He did develop a pneumonia the week before. In the intermediate the patient has not been eating well and not interacting as usual. Per the staff he has lost 30lbs in the last month. The patient was very hypotensive and was sent to the ER. The patients brother was at the bedside. He has a history of dysphagia since childhood. He has had to have dilation in the past. This may be the cause of his weight loss. However he may have been depressed by all his recent troubles. I had started him on sertarline 50mg po qday this In the intermediate he was given fluids. Found to have a creatine of 3. His baseline is 1. He has no complaints. Hospital Course: patient was admitted for dehydration and malnutrion. His bp resolved with hydration. He still did not wish to eat. Had an end of life meeting with his brother. Had Dr Bañuelos put in a PEG tube. Will see how he does with the sertarline and adequate nutrition. Vital Signs/Physical Exam: Temp Pulse Resp BP Pulse Ox 98.6 F 88 18 87/60 L 94 09/20/20 08:00 09/20/20 08:00 09/20/20 08:00 09/20/20 08:00 09/20/20 08:00 General: Alert, In no apparent distress Gastrointestinal: Other (peg tube in place) Laboratory Data at Discharge: WBC 13.5 K/uL (4.3-10.9) H D 09/17/20 14:46 Hgb 10.3 g/dL (13.6-17.9) L D 09/17/20 14:46 Hct 31.8 % (39.6-49.0) L D 09/17/20 14:46 Plt Count 264 K/uL (152-406) D 09/17/20 14:46 PT 17.9 SECONDS (9.5-12.5) H 09/17/20 14:46 INR 1.53 09/17/20 14:46 APTT 28.6 SECONDS (24.3-36.9) 09/17/20 14:46 Sodium Cancelled 09/20/20 06:00 Potassium Cancelled 09/20/20 06:00 BUN Cancelled 09/20/20 06:00 Creatinine Cancelled 09/20/20 06:00 Glucose Cancelled 09/20/20 06:00 Phosphorus 2.2 mg/dL (2.5-4.9) L 09/20/20 05:33 Magnesium 1.8 mg/dL (1.8-2.4) D 09/20/20 05:33 Total Bilirubin 0.3 mg/dL (0.2-1.0) 09/18/20 05:32 AST 12 U/L (15-37) L 09/18/20 05:32 ALT 15 U/L (12-78) 09/18/20 05:32 Alkaline Phosphatase 65 U/L (45-117) 09/18/20 05:32 Amylase 120 U/L (25-115) H 09/15/20 20:01 Lipase 572 U/L (73-393) H 09/15/20 20:01 Home Medications: Acetaminophen [Tylenol] 325 mg PO Q6HP PRN 09/02/20 Arginine/Ascorbate Sod/David AC [Arginaid Powder] 1 packet PO BID 09/02/20 Ascorbic Acid [C-500] 500 mg PO BID 09/02/20 Ascorbic Acid/Zinc [Zinc Lozenges] 1 lozenge PO Q6HP PRN 09/02/20 Aspirin Chewable [Aspirin Chewable*] 81 mg PO DAILY 09/02/20 Benzocaine [Oral Pain Relief] 1 susana PO Q4HP PRN 09/02/20 Docusate [Colace Cap*] 100 mg PO DAILY 09/02/20 Lidocaine 4% Patch [Lidoderm 5% Patch*] 1 patch TOP DAILY 09/02/20 Lisinopril [Zestril] 20 mg PO DAILY 09/02/20 Multivitamin [Multiple Vitamins] 1 tab PO DAILY 09/02/20 Ondansetron [Zofran (Odt)*] 4 mg PO Q6HP PRN 09/02/20 Simvastatin 20 mg PO DAILY 09/02/20 traMADol HCL [Ultram*] 50 mg PO Q8HP PRN 09/02/20 Loratadine [Claritin] 10 mg PO DAILY 09/15/20 Apixaban [Eliquis] 2.5 mg PO BID 09/16/20 Diet: see nutrition notes Followup: Royer Cline MD [Primary Care Provider] - Time spent managing pt's care (in minutes): 45
[2020-09-20 13:47] VITALS: TEMP 98.3
[2020-09-20] MEDS: Levofloxacin500mg IV 500 MG/100 ML BAG IV SCH (14:00)
[2020-09-20] MEDS ORDERED: JEVITY 1.5 CAL LIQUID 1,000 ML BOT FT SCH (14:00)
[2020-09-20 15:29] LABS: Magnesium 2.2 mg/dL (1.8-2.4); Potassium 3.7 mmol/L (3.5-5.1)
[2020-09-20] MEDS: ENOXAPARIN 40 MG/0.4 ML SQ SCH (17:00)
[2020-09-20 17:45] VITALS: BP 96/58
== END 2020-09-20 18:05 | DRG 640 ==
LOC: ER 19:50 → 3RD-ICU 21:50 → ERHOLD 22:47 → 2ND 09-16 07:50
PROVIDERS: ADMIT Internal Medicine; ATTEND Internal Medicine
PROC: 0DH63UZ Insertion of Feeding Device into Stomach, Percutaneous Approach (ICD-10-PCS; principal; 2020-09-18 14:00)
PROC: 0DB78ZX Excision of Stomach, Pylorus, Via Natural or Artificial Opening Endoscopic, Diagnostic (ICD-10-PCS; 2020-09-18 14:00)
DX: E86.0 Dehydration (principal); E43 Unspecified severe protein-calorie malnutrition; N17.9 Acute kidney failure, unspecified; Z68.1 Body mass index [BMI] 19.9 or less, adult; G80.1 Spastic diplegic cerebral palsy; D68.9 Coagulation defect, unspecified; E87.0 Hyperosmolality and hypernatremia; E78.5 Hyperlipidemia, unspecified; I10 Essential (primary) hypertension; K26.9 Duodenal ulcer, unspecified as acute or chronic, without hemorrhage or perforation; K21.9 Gastro-esophageal reflux disease without esophagitis; F32.9 Major depressive disorder, single episode, unspecified; K29.70 Gastritis, unspecified, without bleeding; R13.10 Dysphagia, unspecified; Z66 Do not resuscitate; Z79.82 Long term (current) use of aspirin; Z79.899 Other long term (current) drug therapy; Z86.19 Personal history of other infectious and parasitic diseases; Z79.01 Long term (current) use of anticoagulants; Z79.890 Hormone replacement therapy; Z51.5 Encounter for palliative care; Z20.828 Contact with and (suspected) exposure to other viral communicable diseases
CPT/HCPCS: 36415; 71045; 74220; 80048; 80053; 80076; 81003; 81015; 82150; 82550; 82553; 82728; 82947; 83605; 83690; 83735; 84100; 84132; 84134; 84145; 84295; 84484; 85025; 85610; 85652; 85730; 86140; 86850; 86900; 86901; 87040; 87086; 87088; 88305; 88312; 92610; 93005; 96361; 96374; 96375; 97161; 97530; 99291; 99292; J1650; J1720; J2704; J3411; J3475; J7030; J7040; J7799; U0003

== ENCOUNTER 2020-10-07 11:36 | Inpatient (IN) | payer OTHER ==
[2020-10-07 12:07] LABS: Absolute Lymphocytes (CBC) 2.3 K/uL (0.7-4.9); Basophils % 0.2 % (0-1.3); Hematocrit 31.9 % (39.6-49.0); Lymphocytes % 13.9 % (15.3-44.8); MPV 9.1 fL (7.6-11.3); RBC Red Blood Cell Count 3.49 M/uL (4.33-5.43)
[2020-10-07] MEDS ORDERED: NA CHLORIDE 0.9% 1,000 ML ONE ×4 (12:07→23:59)
[2020-10-07 12:22] LABS: Protime INR 1.76
[2020-10-07 12:27] LABS: ALT/SGPT 34 U/L (12-78); AST/SGOT 56 U/L (15-37); Albumin 2.1 g/dL (3.4-5.0); Alkaline Phosphatase 113 U/L (45-117); BUN Blood Urea Nitrogen 123 mg/dL (7-18); Bicarbonate 25 mmol/L (21-32); Bilirubin Direct 0.1 mg/dL (0-0.2); Bilirubin Total 0.2 mg/dL (0.2-1.0); Glucose Level 122 mg/dL (74-106); NT PRO-BNP 1216 pg/mL (<125); Potassium 5.1 mmol/L (3.5-5.1); Protein, Total 7.9 g/dL (6.4-8.2); Sodium Level 149 mmol/L (136-145); Troponin (Emerg Dept Use Only) < 0.02 ng/mL (0.0-0.045)
[2020-10-07 12:30] LABS: Magnesium 3.9 mg/dL (1.8-2.4)
--- NOTE | 2020-10-07 12:48 | RAD REPORT ---
EXAM DESCRIPTION: Shira Single View10/07/2020 11:59 am CLINICAL HISTORY: Chest pain COMPARISON: September 15, 2020 FINDINGS: Moderate patchy left lung opacities. Right lung appears clear of acute infiltrate. Clear of acute infiltrate. The heart is normal size IMPRESSION: Moderate patchy left lung opacities likely pneumonia
[2020-10-07] MEDS ORDERED: CEFTRIAXONE/SWI 1gm 1 GM/10 ML SYR ONE (13:07)
[2020-10-07] MEDS ORDERED: Levofloxacin500mg IV 500 MG/100 ML BAG IV ONE (13:14)
--- NOTE | 2020-10-07 13:30 | EDPHYS ---
Physician Documentation [facility] Name: Gabriel Krishnamurthy Age: 65 yrs Sex: Male : 1955 Arrival Date: 10/07/2020 Time: 11:38 Bed 4 Private MD: ED Physician Cristobal Poole HPI: 10/07 11:53 This 65 yrs old Male presents to ER via Unassigned with complaints of Blood [facility] Pressure Problem - Lethargy. 11:53 Onset: The symptoms/episode began/occurred acutely, today. This is a 65 year old male jmm with a history of cerebral palsy, GERD, HTN, HLP that presents to the ED with cough, shortness of breath, low o2 and low bp which occurred after an episode of coughing and vomiting according to [facility]. . Historical: - Allergies: 11:51 No Known Allergies; hb - Home Meds: 11:51 acetaminophen 325 mg Oral tab 2 tabs every 6 hours [Active]; Arginaid Oral [Active]; hb ascorbic acid (vitamin C) 500 mg tab [Active]; aspirin 81 mg Oral chew 1 tab once daily [Active]; Bactrim DS 800-160 mg Oral tab 1 tab 2 times per day [Active]; benzocaine mucous membrane [Active]; docusate sodium 100 mg Oral cap 1 cap once daily [Active]; Flonase 50 mcg/actuation Nasal spsn 2 sprays once daily [Active]; lidocaine patch [Active]; lisinopril 20 mg Oral tab 1 tab once daily [Active]; multivitamin with minerals Oral tab [Active]; simvastatin 20 mg Oral tab 1 tab once daily [Active]; tramadol 50 mg Oral tab 1 tab every 8 hours [Active]; zinc lozenges Oral [Active]; Zofran (as hydrochloride) 4 mg Oral tab 1 tabs every 6 hours [Active]; - PMHx: 11:51 Cerebral Palsy; GERD; Hyperlipidemia; Hypertension; hb - Immunization history:: Adult Immunizations up to date. - Social history:: Smoking status: Patient denies any tobacco usage or history of. ROS: 11:53 Unable to obtain ROS due to patient's speech is incomprehensible. [facility] Exam: 11:53 Head/Face: atraumatic. Eyes: EOMI, no conjunctival erythema appreciated ENT: Moist jmm Mucus Membranes Neck: Trachea midline, Supple Chest/axilla: Normal chest wall appearance and motion. Cardiovascular: Regular rate and rhythm. No edema appreciated Respiratory: Normal respirations, no respiratory distress appreciated Abdomen/GI: Non distended, soft Back: Normal ROM Skin: General appearance color normal 11:53 Constitutional: The patient appears alert, awake. 11:53 Psych: Behavior/mood is calm. Vital Signs: 11:38 BP 67 / 41; Pulse 99; Resp 26; Pulse Ox 82% on R/A; hb 12:04 BP 74 / 61; Pulse 85; Resp 23; Pulse Ox 92% on 2 lpm NC; ll1 12:39 BP 127 / 97; Pulse 85; Resp 21; Pulse Ox 97% on 2 lpm NC; ll1 13:02 Temp 97.3; ll1 13:08 BP 91 / 62; Pulse 85; Resp 20; Pulse Ox 97% on 2 lpm NC; ll1 14:01 BP 73 / 41; Pulse 87; Resp 20; Pulse Ox 95% on 2 lpm NC; ll1 14:13 BP 98 / 52 RA (man/); Pulse 88; Resp 21; Pulse Ox 93% on 2 lpm NC; ll1 15:25 BP 78 / 56; Pulse 88; Resp 21; Pulse Ox 100% on 3 lpm NC; ll1 17:13 BP 95 / 55 LA (man/); Pulse 95; Resp 20; Pulse Ox 98% on 3 lpm NC; ll1 18:01 BP 79 / 59; Pulse 97; Resp 20; Pulse Ox 97% on 3 lpm NC; ll1 18:09 BP 70 / 40 LA (man/); ll1 18:49 BP 74 / 48; Pulse 98; Resp 22; Pulse Ox 95% on 3 lpm NC; ll1 14:01 NICOLE Mahan informed. NS bolus ordered and given. ll1 14:13 Admission doctor at bedside. 500 ml NS bolus, then at 100 ml/hr. 1 MDM: 11:42 Patient medically screened. [facility] 13:28 Data reviewed: vital signs, nurses notes. Counseling: I had a detailed discussion with alfredo the patient and/or guardian regarding: the historical points, exam findings, and any diagnostic results supporting the discharge/admit diagnosis, lab results, the need for further work-up and treatment in the hospital. ED course: I discussed the patient with Dr. Cline whom accepted admission. . 10/07 11:45 Order name: Basic Metabolic Panel [facility] 10/07 11:45 Order name: CBC with Diff; Complete Time: 13:39 [facility] 10/07 11:45 Order name: LFT's; Complete Time: 12:30 [facility] 10/07 11:45 Order name: Magnesium; Complete Time: 12:30 [facility] 10/07 11:45 Order name: NT PRO-BNP; Complete Time: 12:30 [facility] 10/07 11:45 Order name: PT-INR; Complete Time: 12:30 [facility] 10/07 11:45 Order name: Troponin (emerg Dept Use Only); Complete Time: 12:30 [facility] 10/07 11:45 Order name: Blood Culture Adult (2) [facility] 10/07 11:45 Order name: Lactate; Complete Time: 12:38 [facility] 10/07 11:45 Order name: Procalcitonin; Complete Time: 13:17 [facility] 10/07 11:45 Order name: Urine Culture [facility] 10/07 11:46 Order name: Basic Metabolic Panel; Complete Time: 12:30 [facility] 10/07 13:12 Order name: COVID-19 [facility] 10/07 11:45 Order name: XRAY Chest (1 view); Complete Time: 12:50 [facility] 10/07 13:33 Order name: Manual Differential; Complete Time: 13:39 [facility] 10/07 14:47 Order name: CBC with Automated Diff [facility] 10/07 14:47 Order name: CBC with Automated Diff [facility] 10/07 14:47 Order name: CBC with Automated Diff [facility] 10/07 14:47 Order name: CBC with Automated Diff [facility] 10/07 14:47 Order name: Comprehensive Metabolic Panel [facility] 10/07 14:47 Order name: Comprehensive Metabolic Panel [facility] 10/07 14:47 Order name: Comprehensive Metabolic Panel [facility] 10/07 14:47 Order name: Comprehensive Metabolic Panel [facility] 10/07 15:32 Order name: Lactate Sepsis 2 HR Follow-up; Complete Time: 15:32 [facility] 10/07 15:41 Order name: SARS-COV-2 RT PCR; Complete Time: 16:03 [facility] 10/07 11:45 Order name: EKG; Complete Time: 11:46 [facility] 10/07 11:45 Order name: Cardiac monitoring; Complete Time: 11:56 [facility] 10/07 11:45 Order name: EKG - Nurse/Tech; Complete Time: 12:52 [facility] 10/07 11:45 Order name: IV Saline Lock; Complete Time: 11:56 [facility] 10/07 11:45 Order name: Labs collected and sent; Complete Time: 11:56 [facility] 10/07 11:45 Order name: O2 Per Protocol; Complete Time: 11: [facility] 10/07 11:45 Order name: O2 Sat Monitoring; Complete Time: 11:56 [facility] 10/07 11:45 Order name: Urine Dipstick-Ancillary (obtain specimen) [facility] 10/07 14:43 Order name: Social Service Consult [facility] 10/07 14:47 Order name: CONS Physician Consult [facility] Administered Medications: 56 Drug: NS 0.9% 1000 ml Route: IV; Rate: 1 bolus; Site: left forearm; hb 13:09 Follow up: Response: No adverse reaction; RASS: Alert and Calm (0); IV Status: ll1 Completed infusion; IV Intake: 1000ml 13:01 Drug: Rocephin 1 grams Route: IV; Rate: calculated rate; Site: left forearm; ll1 13:09 Follow up: Response: No adverse reaction; RASS: Alert and Calm (0); IV Status: ll1 Completed infusion; IV Intake: 10ml 13:07 Drug: LevaQUIN 500 mg Volume: 100 ml; Route: IVPB; Infused Over: 60 mins; Site: left ll1 forearm; 14:00 Follow up: Response: No adverse reaction; RASS: Alert and Calm (0); IV Status: ll1 Completed infusion; IV Intake: 100ml 13:12 Not Given (Duplicate Order): vancoMYCIN 1 grams IVPB once over 2 hrs [facility] 14:02 Drug: NS 0.9% 250 ml Route: IV; Rate: bolus; Site: left forearm; ll1 15:26 Follow up: Response: No adverse reaction; RASS: Alert and Calm (0); IV Status: ll1 Completed infusion; IV Intake: 500ml Disposition: 10/07/20 13:29 Hospitalization ordered by Royer Cline for Inpatient Admission. Preliminary diagnosis are Pneumonia, Hypoxia, Acute Kidney Injury. - Bed requested for Intensive Care Unit. - Status is Inpatient Admission. sg - Condition is Stable. - Problem is new. - Symptoms are unchanged. Addendum: 10/11/2020 03:33 Co-signature as Attending Physician, Cristobal Poole MD. m a2 Signatures: Dispatcher [employer] [facility] Latisha Troncoso RN ARMEN Lazarus Cheng RN RN Remigio Cotton, PA PA [facility] Bel Lang RN RN Cristobal Poole MD MD sc2 Diane José RN RN ll1 Corrections: (The following items were deleted from the chart) 10/07 14:43 13:13 CORONAVIRUS ordered. [facility] 19:09 13:29 Hospitalization Ordered by Royer Cline MD for Inpatient Admission. Preliminary diagnosis is Pneumonia; Hypoxia; Acute Kidney Injury. Bed requested for Telemetry/MedSurg (Inpatient). Status is Inpatient Admission. Condition is Stable. Problem is new. Symptoms are unchanged. [facility] 19:40 19:09 10/07/2020 13:29 Hospitalization Ordered by Royer Cline MD for Inpatient sg Admission. Preliminary diagnosis is Pneumonia; Hypoxia; Acute Kidney Injury. Bed requested for Intensive Care Unit. Status is Inpatient Admission. Condition is Stable. Problem is new. Symptoms are unchanged. mw
--- NOTE | 2020-10-07 13:30 | ER ---
Nurse's Notes [facility] Name: Gabriel Krishnamurthy Age: 65 yrs Sex: Male : 1955 Arrival Date: 10/07/2020 Time: 11:38 Bed 4 Private MD: Diagnosis: Pneumonia;Hypoxia;Acute Kidney Injury Presentation: 10/07 11:38 Coronavirus screen: At this time, the client does not indicate any symptoms associated hb with coronavirus-19. Ebola Screen: No symptoms or risks identified at this time. Initial Sepsis Screen: Does the patient meet any 2 criteria? RR > 20 per min. Systolic BP < 90 mmHg. Yes Does the patient have a suspected source of infection? No. Patient's initial sepsis screen is negative. Risk Assessment: Do you want to hurt yourself or someone else? Patient reports no desire to harm self or others. Onset of symptoms. 11:38 Acuity: BRENDAN 2 hb 12:07 Chief complaint: Patient states: Cough and SOB for 2 days. No known fever. EMS states: ll1 O2 sat. 77-79% RA. BP 90 palp. 22 G L FA. 12:07 Method Of Arrival: EMS: [facility] ll1 Historical: - Allergies: 11:51 No Known Allergies; hb - Home Meds: 11:51 acetaminophen 325 mg Oral tab 2 tabs every 6 hours [Active]; Arginaid Oral [Active]; hb ascorbic acid (vitamin C) 500 mg tab [Active]; aspirin 81 mg Oral chew 1 tab once daily [Active]; Bactrim DS 800-160 mg Oral tab 1 tab 2 times per day [Active]; benzocaine mucous membrane [Active]; docusate sodium 100 mg Oral cap 1 cap once daily [Active]; Flonase 50 mcg/actuation Nasal spsn 2 sprays once daily [Active]; lidocaine patch [Active]; lisinopril 20 mg Oral tab 1 tab once daily [Active]; multivitamin with minerals Oral tab [Active]; simvastatin 20 mg Oral tab 1 tab once daily [Active]; tramadol 50 mg Oral tab 1 tab every 8 hours [Active]; zinc lozenges Oral [Active]; Zofran (as hydrochloride) 4 mg Oral tab 1 tabs every 6 hours [Active]; - PMHx: 11:51 Cerebral Palsy; GERD; Hyperlipidemia; Hypertension; hb - Immunization history:: Adult Immunizations up to date. - Social history:: Smoking status: Patient denies any tobacco usage or history of. Screenin:51 Abuse screen: Denies threats or abuse. Denies injuries from another. Nutritional hb screening: On PEG tube present. Tuberculosis screening: No symptoms or risk factors identified. Fall Risk Total Sharma Fall Scale indicates High Risk Score (45 or more points). Fall prevention measures have been instituted. Side Rails Up X 2 Placed Close to Nursing Station Frequent Obs/Assessments Occuring As available patient and family educated on Fall Prevention Program and Strategies. Assessment: 12:05 General: Appears ill, Behavior is cooperative, appropriate for age, quiet. Pain: Denies ll1 pain. Neuro: No deficits noted. Cardiovascular: No deficits noted. Respiratory: Reports cough that is labored breathing Airway is patent Trachea midline Respiratory effort is even, labored, Respiratory pattern is symmetrical, tachypnea the patient has mild shortness of breath. GI: No deficits noted. GI: Abdomen is flat, Bowel sounds present X 4 quads. Abd is soft and non tender X 4 quads. PEG tube present. : No deficits noted. Musculoskeletal: Circulation, motion, and sensation intact. Capillary refill < 3 seconds, Range of motion: limited in all extremities, Swelling absent. 12:10 General: HOB lowered to 30 degrees. ll1 13:05 Reassessment: Patient and/or family updated on plan of care and expected duration. Pain ll1 level reassessed. HOB raised 45 degree. 14:00 Reassessment: Patient and/or family updated on plan of care and expected duration. Pain ll1 level reassessed. Rolled onto far right side. Patient states feeling better. 15:00 Reassessment: Patient and/or family updated on plan of care and expected duration. Pain ll1 level reassessed. Adjusted to left side. 16:00 Reassessment: Patient and/or family updated on plan of care and expected duration. Pain ll1 level reassessed. Rolled onto right side. 17:00 Reassessment: Patient and/or family updated on plan of care and expected duration. Pain ll1 level reassessed. HOB lowered slightly, 35 degrees. Vital Signs: 11:38 BP 67 / 41; Pulse 99; Resp 26; Pulse Ox 82% on R/A; hb 12:04 BP 74 / 61; Pulse 85; Resp 23; Pulse Ox 92% on 2 lpm NC; ll1 12:39 BP 127 / 97; Pulse 85; Resp 21; Pulse Ox 97% on 2 lpm NC; ll1 13:02 Temp 97.3; ll1 13:08 BP 91 / 62; Pulse 85; Resp 20; Pulse Ox 97% on 2 lpm NC; ll1 14:01 BP 73 / 41; Pulse 87; Resp 20; Pulse Ox 95% on 2 lpm NC; ll1 14:13 BP 98 / 52 RA (man/); Pulse 88; Resp 21; Pulse Ox 93% on 2 lpm NC; ll1 15:25 BP 78 / 56; Pulse 88; Resp 21; Pulse Ox 100% on 3 lpm NC; ll1 17:13 BP 95 / 55 LA (man/); Pulse 95; Resp 20; Pulse Ox 98% on 3 lpm NC; ll1 18:01 BP 79 / 59; Pulse 97; Resp 20; Pulse Ox 97% on 3 lpm NC; ll1 18:09 BP 70 / 40 LA (man/); ll1 18:49 BP 74 / 48; Pulse 98; Resp 22; Pulse Ox 95% on 3 lpm NC; ll1 14:01 NICOLE Mahan informed. NS bolus ordered and given. ll1 14:13 Admission doctor at bedside. 500 ml NS bolus, then at 100 ml/hr. ll1 ED Course: 11:38 Patient arrived in ED. hb 11:38 Arm band placed on. hb 11:39 Remigio Cotton PA is PHCP. [facility] 11:39 Cristobal Poole MD is Attending Physician. [facility] 11:45 Triage completed. hb 11:47 Diane José, ARMEN is Primary Nurse. ll1 11:51 Patient has correct armband on for positive identification. Placed in gown. Bed in low hb position. Call light in reach. Side rails up X2. color television console monitor on. Pulse ox on. NIBP on. 11:57 XRAY Chest (1 view) In Process Unspecified. EDMS 12:09 Maintain EMS IV. Dressing intact. Good blood return noted. Site clean \T\ dry. Gauge \T\ ll 1 site: 22 L FA. 12:10 Lights dimmed. Warm blanket given. Pillow given. Head of bed lowered. ll1 12:54 EKG done, by ED staff, reviewed by Remigio RIVERA. 3 13:28 Royer Cline MD is Hospitalizing Provider. m 19:37 No provider procedures requiring assistance completed. Patient admitted, IV remains in ll1 place. Administered Medications: 11:56 Drug: NS 0.9% 1000 ml Route: IV; Rate: 1 bolus; Site: left forearm; hb 13:09 Follow up: Response: No adverse reaction; RASS: Alert and Calm (0); IV Status: ll1 Completed infusion; IV Intake: 1000ml 13:01 Drug: Rocephin 1 grams Route: IV; Rate: calculated rate; Site: left forearm; ll1 13:09 Follow up: Response: No adverse reaction; RASS: Alert and Calm (0); IV Status: ll1 Completed infusion; IV Intake: 10ml 13:07 Drug: LevaQUIN 500 mg Volume: 100 ml; Route: IVPB; Infused Over: 60 mins; Site: left ll1 forearm; 14:00 Follow up: Response: No adverse reaction; RASS: Alert and Calm (0); IV Status: ll1 Completed infusion; IV Intake: 100ml 13:12 Not Given (Duplicate Order): vancoMYCIN 1 grams IVPB once over 2 hrs [facility] 14:02 Drug: NS 0.9% 250 ml Route: IV; Rate: bolus; Site: left forearm; ll1 15:26 Follow up: Response: No adverse reaction; RASS: Alert and Calm (0); IV Status: ll1 Completed infusion; IV Intake: 500ml Intake: 13:09 IV: 1000ml; Total: 1000ml. ll1 13:09 IV: 10ml; Total: 1010ml. ll1 14:00 IV: 100ml; Total: 1110ml. ll1 15:26 IV: 500ml; Total: 1610ml. ll1 Outcome: 13:29 Decision to Hospitalize by Provider. m 19:38 Admitted to ICU accompanied by nurse, room ICU 1 (ER ICU area), with oxygen, on ll1 monitor, with chart, Report called to ARMEN Vila in ICU 19:38 Condition: stable 19:38 Instructed on the need for admit. 19:40 Patient left the ED. sg Signatures: Dispatcher [employer] EDMS Cheng, Lazarus, RN Remigio Meraz PA PA jmm Baxter, Heather, RN RN Jennyfer Lynch [facility] Diane José RN RN ll1 Corrections: (The following items were deleted from the chart) 15:26 15:25 BP 78 / 56; Pulse 22bpm; Resp 21bpm; Pulse Ox 100% 3 lpm Nasal Cannula; ll1 ll1 17:15 13:05 Reassessment: Patient and/or family updated on plan of care and expected ll1 duration. Pain level reassessed. ll1 17:16 14:00 Reassessment: Patient and/or family updated on plan of care and expected ll1 duration. Pain level reassessed. Patient states feeling better. ll1 17:16 15:00 Reassessment: Patient and/or family updated on plan of care and expected ll1 duration. Pain level reassessed. ll1 17:16 16:00 Reassessment: Patient and/or family updated on plan of care and expected ll1 duration. Pain level reassessed. ll1 17:17 17:00 Reassessment: Patient and/or family updated on plan of care and expected ll1 duration. Pain level reassessed. ll1 18:53 14:13 BP 98 / 52 Manual R Arm; Pulse 88bpm; Resp 21bpm; Pulse Ox 93% 2 lpm Nasal ll1 Cannula; ll1
[2020-10-07 13:34] LABS: Blood Morphology Comment NOTED (NOT SEEN); Platelet Estimate INCR
[2020-10-07 13:35] LABS: Anisocytosis 1+
--- NOTE | 2020-10-07 14:32 | P.HP ---
Certification for Inpatient Patient admitted to: Inpatient With expected LOS: >2 Midnights Patient will require the following post-hospital care: [facility] Practitioner: I am a practitioner with admitting privileges, knowledge of patient current condition, hospital course, and medical plan of care. Services: Services provided to patient in accordance with Admission requirements found in Title 42 Section 412.3 of the Code of Federal Regulations Patient History Date of Service: 10/07/20 Primary Care Provider: Marlyn Reason for admission: hospital aquired pneumonia History of Present Illness: Patient of mine at [facility]. He has a history of cerebral palsy, htn, hyperlipidemia. CKD with a baseline creatine of 1.3. The patient was sent to the ER with a bp of 68/40 and a spO2 of 78. During his work up he was found to have an left sided pneumonia. He is still hypotensive after a lt of n saline. The second lt is going in. He has a creatine of 6. Which is greatly elevated from his baseline. The patient is able to respond yes and no to questions. However he is very weak. His curb 65 score is 3. Indicating a 17% mortality in the next 30 days. Allergies No Known Allergies Allergy (Verified 09/02/20 06:55) Home Medications: Acetaminophen [Tylenol] 325 mg PO Q6HP PRN 09/02/20 Arginine/Ascorbate Sod/David AC [Arginaid Powder] 1 packet PO BID 09/02/20 Ascorbic Acid [C-500] 500 mg PO BID 09/02/20 Ascorbic Acid/Zinc [Zinc Lozenges] 1 lozenge PO Q6HP PRN 09/02/20 Aspirin Chewable [Aspirin Chewable*] 81 mg PO DAILY 09/02/20 Benzocaine [Oral Pain Relief] 1 susana PO Q4HP PRN 09/02/20 Docusate [Colace Cap*] 100 mg PO DAILY 09/02/20 Lidocaine 4% Patch [Lidoderm 5% Patch*] 1 patch TOP DAILY 09/02/20 Lisinopril [Zestril] 20 mg PO DAILY 09/02/20 Multivitamin [Multiple Vitamins] 1 tab PO DAILY 09/02/20 Ondansetron [Zofran (Odt)*] 4 mg PO Q6HP PRN 09/02/20 Simvastatin 20 mg PO DAILY 09/02/20 traMADol HCL [Ultram*] 50 mg PO Q8HP PRN 09/02/20 Loratadine [Claritin] 10 mg PO DAILY 09/15/20 Apixaban [Eliquis] 2.5 mg PO BID 09/16/20 - Past Medical/Surgical History -: Hypertension -: Hyperlipidemia -: Cerebral palsy Review of Systems 10-point ROS is otherwise unremarkable General: Weakness, Malaise Physical Examination - Physical Exam General: Alert, In no apparent distress HEENT: Atraumatic, PERRLA, Mucous membr. moist/pink, EOMI, Sclerae nonicteric Neck: Supple, 2+ carotid pulse no bruit, No LAD, Without JVD or thyroid abnormality Respiratory: Clear to auscultation bilaterally, Normal air movement Cardiovascular: Regular rate/rhythm, Normal S1 S2 Gastrointestinal: Normal bowel sounds, No tenderness Musculoskeletal: No tenderness Integumentary: No rashes Neurological: Normal gait, Normal speech, Normal strength at 5/5 x4 extr, Normal tone, Normal affect Lymphatics: No axilla or inguinal lymphadenopathy - Studies Laboratory Data (last 24 hrs) 10/07/20 11:50: PT 20.5 H, INR 1.76 10/07/20 11:50: WBC 16.4 H, Hgb 10.3 L, Hct 31.9 L, Plt Count 491 H 10/07/20 11:50: Sodium 149 H, Potassium 5.1, BUN 123 H, Creatinine 6.08 H*, Glucose 122 H, Magnesium 3.9 H* D, Total Bilirubin 0.2, AST 56 H, ALT 34, Alkaline Phosphatase 113 Assessment and Plan - Problems (Diagnosis) (1) Pneumonia Current Visit: Yes Status: Acute Plan: Will give him aggressive fluids. Admit the patient to the unit. Start him on vancomycin and levaquin. Have tried calling his brother and POA. He was a DNR on the last visit. Will keep him a DNR Qualifiers: Pneumonia type: due to unspecified organism Laterality: left Lung location: lower lobe of lung Qualified Code(s): J18.9 - Pneumonia, unspecified organism (2) Acute on chronic renal failure Current Visit: No Status: Resolved Plan: consult neprhology. I have spoken to him. Most likely an acute renal failure secondary to the hypotension. Will see if he recovers with aggressive fluid treatment. Qualifiers: Chronic kidney disease stage: stage 2 (mild) (3) Dysphagia Current Visit: No Status: Acute Plan: He has a peg tube. However has been tolerating oral feeding. We can restart his tube feeding Qualifiers: Dysphagia type: unspecified Qualified Code(s): R13.10 - Dysphagia, unspecified (4) HTN (hypertension) Current Visit: No Status: Acute Plan: Hold his htn meds for now Qualifiers: Hypertension type: essential hypertension Qualified Code(s): I10 - Essential (primary) hypertension (5) Cerebral palsy Current Visit: No Status: Acute Plan: Patient is wheelchair bound Will keep him a fall risk Qualifiers: Cerebral palsy type: spastic diplegic Qualified Code(s): G80.1 - Spastic diplegic cerebral palsy Discharge Plan: Intermediate Plan to discharge in: Greater than 2 days - Advance Directives Does patient have a Living Will: Yes Does patient have a Durable POA for Healthcare: Yes - Code Status/Comfort Care Code Status Assessed: Yes Code Status: Do Not Attempt Resuscitat Time Spent Managing Pts Care (In Minutes): 70
--- NOTE | 2020-10-07 14:38 | P.CNS ---
Date of Consult: 10/07/20 Reason for Consult: Severe BAILEY. Requesting Physician: Royer Cline Primary Care Provider: Marlyn Chief Complaint: hospital aquired pneumonia History of Present Illness: 65 y o male pt with hx of cerebral palsy, hypertension, hyperlipidemia, s/p PEG tube placement admitted for management of sepsis, HCAP, hypotension and severe BAILEY. He had been noted to be more confused and lethargic as per family member. his labs were pertinent for elevated potassium of 5.1 but his creatinine was severely elevated at 6.0 from baseline of 1.3 on last evaluation. he also had episodes of vomiting this am. no issues with diarrhea. on his last admission, he was said to have lost 30lb of weight due to issues with intake and he had PEG tube placed for feeding purposes. Nephrology was asked to assist with management of his kidney function abnormality. Allergies No Known Allergies Allergy (Verified 09/02/20 06:55) Home medications list reviewed: Yes Home Medications: Acetaminophen [Tylenol] 325 mg PO Q6HP PRN 09/02/20 Arginine/Ascorbate Sod/David AC [Arginaid Powder] 1 packet PO BID 09/02/20 Ascorbic Acid [C-500] 500 mg PO BID 09/02/20 Ascorbic Acid/Zinc [Zinc Lozenges] 1 lozenge PO Q6HP PRN 09/02/20 Aspirin Chewable [Aspirin Chewable*] 81 mg PO DAILY 09/02/20 Benzocaine [Oral Pain Relief] 1 susana PO Q4HP PRN 09/02/20 Docusate [Colace Cap*] 100 mg PO DAILY 09/02/20 Lidocaine 4% Patch [Lidoderm 5% Patch*] 1 patch TOP DAILY 09/02/20 Lisinopril [Zestril] 20 mg PO DAILY 09/02/20 Multivitamin [Multiple Vitamins] 1 tab PO DAILY 09/02/20 Ondansetron [Zofran (Odt)*] 4 mg PO Q6HP PRN 09/02/20 Simvastatin 20 mg PO DAILY 09/02/20 traMADol HCL [Ultram*] 50 mg PO Q8HP PRN 09/02/20 Loratadine [Claritin] 10 mg PO DAILY 09/15/20 Apixaban [Eliquis] 2.5 mg PO BID 09/16/20 - Past Medical/Surgical History -: Hypertension -: Hyperlipidemia -: Cerebral palsy - Social History Smoking Status: Unknown if ever smoked Review of Systems is unable to be obtained Physical Examination General: Alert, Disheveled, Demented HEENT: Atraumatic, Normocephalic Respiratory: Clear to auscultation bilaterally Cardiovascular: Regular rate/rhythm, Normal S1 S2 Gastrointestinal: Normal bowel sounds Musculoskeletal: No swelling Laboratory Data (last 24 hrs) 10/07/20 11:50: PT 20.5 H, INR 1.76 10/07/20 11:50: WBC 16.4 H, Hgb 10.3 L, Hct 31.9 L, Plt Count 491 H 10/07/20 11:50: Sodium 149 H, Potassium 5.1, BUN 123 H, Creatinine 6.08 H*, Glucose 122 H, Magnesium 3.9 H* D, Total Bilirubin 0.2, AST 56 H, ALT 34, Alkaline Phosphatase 113 Conclusions/Impression: Severe BAILEY on CKD -Deemed due to prerenal issues from poor intake of fluid and food in setting of ischemic ATN from hypotension perhaps related to sepsis/volume loss from vomiting. his creatinine is elevated at 6 from baseline of 1.3. he has been started on IV fluid for hydration. we will continue aggressive hydration and monitor his vitals closely. we will dose meds for eGFR and avoid nephrotoxins for now. we will monitor his renal function and I/O closely. Sepsis-suspected due to pneumonia deemed HCAP. he did have episode of vomiting this am raising suspicion for aspiration. we will monitor closely. lactic acid is elevated at 4.4. IV fluid hydration started per protocol. we will monitor lactic acid level closely. s/p PEG placement due to dysphagia-we will continue tube feeds with nepro once stable. Manutrition-management as above. Hypernatremia- Sodium is elevated at 149. we will switch fluid to 1/2NS after initial NS bolus to address hypernatremia. His brother at bedside was discussed and updated on treatment plan.
[2020-10-07] MEDS ORDERED: ONDANSETRON 4 MG (ODT) TAB PO PRN (14:47)
[2020-10-07] MEDS: NA CHLORIDE 0.9% 1,000 ML IV SCH ×2 (15:00→23:00)
[2020-10-07] MEDS ORDERED: ENOXAPARIN 30 MG/0.3 ML SQ SCH (17:00)
[2020-10-07 22:05] VITALS: BMI 16.6
[2020-10-07] MEDS ORDERED: DOXYCYCLINE HYCLATE 100MG INJ ONE (22:53)
[2020-10-07] MEDS ORDERED: NA CHLORIDE 0.9% 100 ML ONE (22:54)
[2020-10-07] MEDS: DOXYCYCLINE 100 MG in NA CHLORIDE 0.9% 100 ML IVPB SCH (22:56)
[2020-10-07] MEDS ORDERED: NA CHLORIDE 0.9% 1,000 ML IV ONE (23:35)
[2020-10-08] MEDS ORDERED: PANTOPRAZOLE 40MG TABLET PO SCH (06:30)
[2020-10-08 06:39] LABS: Basophils % 0.1 % (0-1.3); Lymphocytes % 8.1 % (15.3-44.8); MPV 8.2 fL (7.6-11.3); RBC Red Blood Cell Count 2.05 M/uL (4.33-5.43)
[2020-10-08 06:46] LABS: Hematocrit 18.7 % (39.6-49.0)
[2020-10-08] MEDS: NA CHLORIDE 0.9% 1,000 ML IV SCH ×2 (07:00→08:39)
[2020-10-08] MEDS ORDERED: NA CHLORIDE 0.9% 1,000 ML ONE (07:14)
[2020-10-08 07:16] LABS: Albumin 1.3 g/dL (3.4-5.0); Bilirubin Total 0.2 mg/dL (0.2-1.0); Potassium 4.4 mmol/L (3.5-5.1); Protein, Total 5.2 g/dL (6.4-8.2)
[2020-10-08 08:27] LABS: RBC Red Blood Cell Count 1.95 M/uL (4.33-5.43)
[2020-10-08] MEDS: DOXYCYCLINE 100 MG in NA CHLORIDE 0.9% 100 ML IVPB SCH ×2 (08:34→20:54)
[2020-10-08 08:56] LABS: Blood Morphology Comment NOT SEEN (NOT SEEN); Platelet Estimate ADEQ; Platelets, Giant FEW
[2020-10-08] MEDS ORDERED: BACITRACIN/POLYMYXIN TOPICAL OINT TOP SCH (09:00)
[2020-10-08] MEDS: ASPIRIN 81 MG CHEWABLE TABLET PO SCH (09:00)
[2020-10-08] MEDS: PANTOPRAZOLE 40 MG INJ IVP SCH (09:33)
[2020-10-08] MEDS ORDERED: PANTOPRAZOLE 40 MG INJ ONE (09:46)
[2020-10-08] MEDS ORDERED: D5 0.9 NS 1,000 ML IV SCH (10:00)
[2020-10-08] MEDS ORDERED: NA CHLORIDE 0.9% 100 ML ONE ×3 (10:01→20:58)
--- NOTE | 2020-10-08 11:36 | P.PN ---
Subjective Date of Service: 10/08/20 Primary Care Provider: Marlyn Chief Complaint: hospital aquired pneumonia Subjective: New changes (hb dropped from 10 to 6.1. He has been started on levophed) Review of Systems 10-point ROS is otherwise unremarkable General: Weakness, Malaise Physical Examination - Vital Signs Temperature: 98.9 F Blood Pressure: 77/52 Pulse: 94 Respirations: 22 Pulse Ox (%): 98 - Physical Exam General: Alert, In no apparent distress HEENT: Atraumatic, PERRLA, EOMI Neck: Supple, JVD not distended Respiratory: Clear to auscultation bilaterally, Normal air movement Cardiovascular: Regular rate/rhythm, Normal S1 S2 Gastrointestinal: Normal bowel sounds, No tenderness Musculoskeletal: No tenderness Integumentary: No rashes Neurological: Normal speech, Normal tone, Normal affect Lymphatics: No axilla or inguinal lymphadenopathy - Studies Laboratory Data (last 24 hrs) 10/07/20 11:50: PT 20.5 H, INR 1.76 10/07/20 11:50: WBC 16.4 H, Hgb 10.3 L, Hct 31.9 L, Plt Count 491 H 10/07/20 11:50: Sodium 149 H, Potassium 5.1, BUN 123 H, Creatinine 6.08 H*, Glucose 122 H, Magnesium 3.9 H* D, Total Bilirubin 0.2, AST 56 H, ALT 34, Alkaline Phosphatase 113 Microbiology Data (last 24 hrs): 10/07/20 12:05 Blood - Blood Anaerobic Blood Culture - Final Assessment & Plan - Problems (Diagnosis) (1) Anemia Current Visit: Yes Status: Acute Plan: Will transfuse till above 7. Will check a guaic. His absolute reticulocyte count seems to indicate bone marrow failure. Will keep supporting him. Qualifiers: Iron deficiency anemia type: other iron deficiency (2) Pneumonia Current Visit: Yes Status: Acute Plan: Will give him aggressive fluids. Admit the patient to the unit. Start him on vancomycin and levaquin. Have tried calling his brother and POA. He was a DNR on the last visit. Will keep him a DNR Qualifiers: Pneumonia type: due to unspecified organism Laterality: left Lung location: lower lobe of lung Qualified Code(s): J18.9 - Pneumonia, unspecified organism (3) Acute on chronic renal failure Current Visit: No Status: Resolved Plan: consult neprhology. I have spoken to him. Most likely an acute renal failure secondary to the hypotension. Will see if he recovers with aggressive fluid treatment. 10/08 Much improved with fluids. he has made approximately 1300cc of urine. Will continue to improve his vol with fluids and blood Hopefully we can get him off the levophed. Qualifiers: Chronic kidney disease stage: stage 2 (mild) (4) Dysphagia Current Visit: No Status: Acute Plan: He has a peg tube. However has been tolerating oral feeding. We can restart his tube feeding 10/08 He is doing better. Will start him on the Nepro. He was on 1 can of jevity qid per the last vists note. Will start him on a half can of nephro at this time. Start him on D5 1/2 N as he was getting hypoglycemic. Qualifiers: Dysphagia type: unspecified Qualified Code(s): R13.10 - Dysphagia, unspecified (5) HTN (hypertension) Current Visit: No Status: Acute Plan: Hold his htn meds for now Qualifiers: Hypertension type: essential hypertension Qualified Code(s): I10 - Essential (primary) hypertension (6) Cerebral palsy Current Visit: No Status: Acute Plan: Patient is wheelchair bound Will keep him a fall risk Qualifiers: Cerebral palsy type: spastic diplegic Qualified Code(s): G80.1 - Spastic diplegic cerebral palsy Discharge Plan: Fdc Plan to discharge in: Greater than 2 days - Code Status/Comfort Care Code Status Assessed: No Physician Review: Patient Assessed, Agree with Above Assessment and Plan Critical Care: Yes Time Spent Managing Pts Care (In Minutes): 45
--- NOTE | 2020-10-08 14:57 | P.PN ---
Subjective Date of Service: 10/08/20 Primary Care Provider: Marlyn Chief Complaint: hospital aquired pneumonia Subjective: No new changes, No C/O voiced (still on iv pressors) Physical Examination - Vital Signs Temperature: 98.7 F Blood Pressure: 94/65 Pulse: 76 Respirations: 22 Pulse Ox (%): 23 - Physical Exam General: Oriented x1, Delirious HEENT: Atraumatic, Normocephalic Neck: Supple Respiratory: Clear to auscultation bilaterally Cardiovascular: No edema, Normal pulses, Regular rate/rhythm, Normal S1 S2 Gastrointestinal: Normal bowel sounds, Soft and benign Musculoskeletal: No clubbing, No swelling Neurological: Dementia - Studies Laboratory Results WBC 16.4 K/uL (4.3-10.9) H 10/07/20 11:50 RBC 3.49 M/uL (4.33-5.43) L 10/07/20 11:50 Hgb 10.3 g/dL (13.6-17.9) L 10/07/20 11:50 Hct 31.9 % (39.6-49.0) L 10/07/20 11:50 MCV 91.3 fL (80-100) 10/07/20 11:50 MCH 29.6 pg (27.0-35.0) 10/07/20 11:50 MCHC 32.4 g/dL (32.0-36.0) 10/07/20 11:50 RDW 16.2 % (12.1-15.2) H 10/07/20 11:50 Plt Count 491 K/uL (152-406) H 10/07/20 11:50 MPV 9.1 fL (7.6-11.3) 10/07/20 11:50 Neutrophils % 83.8 % (41.7-73.7) H 10/07/20 11:50 Lymphocytes % 13.9 % (15.3-44.8) L 10/07/20 11:50 Monocytes % 1.7 % (3.3-12.3) L 10/07/20 11:50 Eosinophils % 0.4 % (0-4.4) 10/07/20 11:50 Basophils % 0.2 % (0-1.3) 10/07/20 11:50 Absolute Neutrophils 13.7 K/uL (1.8-8.0) H 10/07/20 11:50 Segmented Neutrophils 77 % (40-80) 10/07/20 11:50 Band Neutrophils 7 % (0-1) H 10/07/20 11:50 Absolute Lymphocytes 2.3 K/uL (0.7-4.9) 10/07/20 11:50 Lymphocytes 14 % (15-42) L 10/07/20 11:50 Monocytes 1 % (0-10) 10/07/20 11:50 Absolute Monocytes 0.3 K/uL (0.1-1.3) 10/07/20 11:50 Absolute Eosinophils 0.1 K/uL (0-0.5) 10/07/20 11:50 Absolute Basophils 0.0 K/uL (0-0.5) 10/07/20 11:50 Metamyelocytes 1 % (0-0) H 10/07/20 11:50 Nucleated RBCs 1 /100WBC 10/07/20 11:50 Platelet Estimate Incr 10/07/20 11:50 Anisocytosis 1+ 10/07/20 11:50 Morphology Comment Noted (NOT SEEN) 10/07/20 11:50 PT 20.5 SECONDS (9.5-12.5) H 10/07/20 11:50 INR 1.76 10/07/20 11:50 Sodium 149 mmol/L (136-145) H 10/07/20 11:50 Potassium 5.1 mmol/L (3.5-5.1) 10/07/20 11:50 Chloride 108 mmol/L (98-107) H 10/07/20 11:50 Carbon Dioxide 25 mmol/L (21-32) 10/07/20 11:50 BUN 123 mg/dL (7-18) H 10/07/20 11:50 Creatinine 6.08 mg/dL (0.55-1.3) H* 10/07/20 11:50 Estimated GFR 9 mL/min (=/>90) L 10/07/20 11:50 Glucose 122 mg/dL (74-106) H 10/07/20 11:50 Lactic Acid 2.0 mmol/L (0.4-2.0) 10/07/20 15:05 Calcium 9.1 mg/dL (8.5-10.1) 10/07/20 11:50 Magnesium 3.9 mg/dL (1.8-2.4) H* D 10/07/20 11:50 Total Bilirubin 0.2 mg/dL (0.2-1.0) 10/07/20 11:50 Direct Bilirubin 0.1 mg/dL (0-0.2) 10/07/20 11:50 AST 56 U/L (15-37) H 10/07/20 11:50 ALT 34 U/L (12-78) 10/07/20 11:50 Alkaline Phosphatase 113 U/L (45-117) 10/07/20 11:50 Rapid Troponin I < 0.02 ng/mL (0.0-0.045) 10/07/20 11:50 NT-Pro-B Natriuret Pep 1216 pg/mL (<125) H 10/07/20 11:50 Serum Total Protein 7.9 g/dL (6.4-8.2) 10/07/20 11:50 Albumin 2.1 g/dL (3.4-5.0) L 10/07/20 11:50 Globulin 5.8 g/dL (2.3-3.5) H 10/07/20 11:50 Albumin/Globulin Ratio 0.4 (1.1-1.8) L 10/07/20 11:50 Procalcitonin 6.86 ng/mL (<0.50) H 10/07/20 11:50 SARS-CoV-2 RNA (RT-PCR) Negative (NEGATIVE) 10/07/20 13:21 Microbiology Data (last 24 hrs): 10/07/20 12:05 Blood - Blood Anaerobic Blood Culture - Final Assessment & Plan - Problems (Diagnosis) (1) Anemia Current Visit: Yes Status: Acute Qualifiers: Iron deficiency anemia type: other iron deficiency (2) Pneumonia Current Visit: Yes Status: Acute Qualifiers: Pneumonia type: due to unspecified organism Laterality: left Lung location: lower lobe of lung Qualified Code(s): J18.9 - Pneumonia, unspecified organism (3) Acute renal failure Current Visit: No Status: Acute Qualifiers: Acute renal failure type: unspecified Qualified Code(s): N17.9 - Acute kidney failure, unspecified (4) Cerebral palsy Current Visit: No Status: Acute Qualifiers: Cerebral palsy type: spastic diplegic Qualified Code(s): G80.1 - Spastic diplegic cerebral palsy (5) Dysphagia Current Visit: No Status: Acute Qualifiers: Dysphagia type: unspecified Qualified Code(s): R13.10 - Dysphagia, unspecified (6) Hypernatremia Current Visit: No Status: Acute (7) Shock Current Visit: No Status: Acute Physician Review: Patient Assessed, Agree with Above Assessment and Plan Physician Review Additional Text: #ARF - cr improving to 4.3 - continue to optmize BP - keep MAP > 70 - C/W gentle IVF - likely due to ATN and pre-renal from renal hypoperfusion # Hypotension/septic shock- on IV levophed # Hypernatremia - still elecvated at 154 - swithc IVF to D51/2 NS and follow # Met Acidosis - stable at 20 , follow # Anemia- h/h down to 6.1 , consider prbc since low BP # Pneumonia - on abx
[2020-10-08 15:01] LABS: Hematocrit 23.7 % (39.6-49.0)
[2020-10-08] MEDS: ENOXAPARIN 30 MG/0.3 ML SQ SCH (15:09)
[2020-10-08] MEDS: D5 0.45 NS 1,000 ML IV SCH (15:09)
[2020-10-08] MEDS ORDERED: D5 0.45 NS 1,000 ML IV ONE (15:23)
[2020-10-08] MEDS: NOREPINEPHRINE 4 MG in D5W 250 ML IV PRN ×2 (15:46→21:24)
[2020-10-08] MEDS: NEPRO 1,000 ML BOT FT SCH ×2 (17:00→20:54)
[2020-10-08] MEDS ORDERED: DOXYCYCLINE HYCLATE 100MG INJ ONE (20:58)
[2020-10-08 21:14] LABS: Hematocrit 27.9 % (39.6-49.0)
--- NOTE | 2020-10-08 21:27 | P.PN ---
Date of Service: 10/08/20 Nursing called. Pt had a reddish mahagony stool. the patient had a recent peg placed as well by Dr. Bañuelos Will consult him. Order serial hct and transfuse as necessary.
[2020-10-09] MEDS: D5 0.45 NS 1,000 ML IV SCH (01:49)
[2020-10-09] MEDS ORDERED: D5 0.45 NS 1,000 ML IV ONE (02:01)
[2020-10-09 04:18] LABS: Absolute Lymphocytes (CBC) 1.5 K/uL (0.7-4.9); Basophils % 0.1 % (0-1.3); Hematocrit 28.2 % (39.6-49.0); Lymphocytes % 9.8 % (15.3-44.8); RBC Red Blood Cell Count 3.12 M/uL (4.33-5.43)
[2020-10-09 04:51] LABS: Albumin 1.4 g/dL (3.4-5.0); Bilirubin Total 0.2 mg/dL (0.2-1.0); Protein, Total 5.5 g/dL (6.4-8.2)
[2020-10-09] MEDS: NOREPINEPHRINE 4 MG in D5W 250 ML IV PRN ×2 (05:43→18:59)
[2020-10-09] MEDS ORDERED: NOREPINEPHRINE 4mg/D5W 250mL 4 MG/250 ML BAG IV ONE (05:55)
[2020-10-09] MEDS: ASPIRIN 81 MG CHEWABLE TABLET PO SCH (07:19)
[2020-10-09] MEDS: NEPRO 1,000 ML BOT FT SCH ×4 (09:00→20:50)
[2020-10-09] MEDS: PANTOPRAZOLE 40 MG INJ IVP SCH (09:31)
[2020-10-09] MEDS: DOXYCYCLINE 100 MG in NA CHLORIDE 0.9% 100 ML IVPB SCH ×2 (09:31→20:50)
[2020-10-09] MEDS ORDERED: PANTOPRAZOLE 40 MG INJ ONE (09:42)
[2020-10-09] MEDS: D5W 1,000 ML IV SCH (10:46)
[2020-10-09] MEDS ORDERED: Levofloxacin500mg IV 500 MG/100 ML BAG IV SCH (11:00)
--- NOTE | 2020-10-09 11:07 | P.PN ---
Subjective Date of Service: 10/09/20 Primary Care Provider: Marlyn Chief Complaint: hospital aquired pneumonia Subjective: No new changes Review of Systems 10-point ROS is otherwise unremarkable Physical Examination - Vital Signs Temperature: 98.9 F Blood Pressure: 93/60 Pulse: 79 Respirations: 21 Pulse Ox (%): 93 - Physical Exam General: Alert, In no apparent distress HEENT: Atraumatic, PERRLA, EOMI Neck: Supple, JVD not distended Respiratory: Clear to auscultation bilaterally, Normal air movement Cardiovascular: Regular rate/rhythm, Normal S1 S2 Gastrointestinal: Normal bowel sounds, No tenderness Musculoskeletal: No tenderness Integumentary: No rashes Neurological: Normal speech, Normal tone, Normal affect Lymphatics: No axilla or inguinal lymphadenopathy - Studies Microbiology Data (last 24 hrs): 10/07/20 12:05 Blood - Blood Aerobic Blood Culture - Final 10/07/20 12:05 Blood - Blood Blood Culture Gram Stain - Final 10/07/20 12:05 Blood - Blood Anaerobic Blood Culture - Final Assessment & Plan - Problems (Diagnosis) (1) Anemia Current Visit: Yes Status: Acute Plan: Will transfuse till above 7. Will check a guaic. His absolute reticulocyte count seems to indicate bone marrow failure. Will keep supporting him. 10/09 Patient is stable. Guiac positive. He most likely has an Upper GI bleed. Considering he had a recent peg tube. will monitor his hct and transfuse as necessary. Qualifiers: Iron deficiency anemia type: other iron deficiency (2) Pneumonia Current Visit: Yes Status: Acute Plan: Will give him aggressive fluids. Admit the patient to the unit. Start him on vancomycin and levaquin. Have tried calling his brother and POA. He was a DNR on the last visit. Will keep him a DNR 10/09 gm +ve cocci in clusters in one blood culture. Coagulase negative so most likely an MSSA. He is on doxycycline. However wbc are going up. This may be an acute phase reaction or a sign of uncontrolled infection. As he is still on levophed will errror on the side of caution and broaden his antibiotic coverage with levaquin. Qualifiers: Pneumonia type: due to unspecified organism Laterality: left Lung location: lower lobe of lung Qualified Code(s): J18.9 - Pneumonia, unspecified organism (3) Acute on chronic renal failure Current Visit: No Status: Resolved Plan: consult neprhology. I have spoken to him. Most likely an acute renal failure secondary to the hypotension. Will see if he recovers with aggressive fluid treatment. 10/09 creatine continues to improve. Nephrology changed him to D5W for his fluids. Will continue to follow his creatine Hopefully we can get him off the levophed. Qualifiers: Chronic kidney disease stage: stage 2 (mild) (4) Dysphagia Current Visit: No Status: Acute Plan: He has a peg tube. However has been tolerating oral feeding. We can restart his tube feeding 10/08 He is doing better. Will start him on the Nepro. He was on 1 can of jevity qid per the last vists note. Will start him on a half can of nephro at this time. Start him on D5 1/2 N as he was getting hypoglycemic. Qualifiers: Dysphagia type: unspecified Qualified Code(s): R13.10 - Dysphagia, unspecified (5) HTN (hypertension) Current Visit: No Status: Acute Plan: Hold his htn meds for now Qualifiers: Hypertension type: essential hypertension Qualified Code(s): I10 - Essential (primary) hypertension (6) Cerebral palsy Current Visit: No Status: Acute Plan: Patient is wheelchair bound Will keep him a fall risk Qualifiers: Cerebral palsy type: spastic diplegic Qualified Code(s): G80.1 - Spastic diplegic cerebral palsy (7) Upper GI bleed Current Visit: Yes Status: Acute Plan: have consulted Dr. Bañuelos who is his gi for the Peg tube placement. monitor his blood counts and transfuse if he falls below a hb of 7 Discharge Plan: Snf Plan to discharge in: Greater than 2 days - Code Status/Comfort Care Code Status Assessed: Yes Code Status: Do Not Attempt Resuscitat Physician Review: Patient Assessed, Agree with Above Assessment and Plan Physician Review Additional Text: #ARF - cr improving to 4.3 - continue to optmize BP - keep MAP > 70 - C/W gentle IVF - likely due to ATN and pre-renal from renal hypoperfusion # Hypotension/septic shock- on IV levophed # Hypernatremia - still elecvated at 154 - swithc IVF to D51/2 NS and follow # Met Acidosis - stable at 20 , follow # Anemia- h/h down to 6.1 , consider prbc since low BP # Pneumonia - on abx Critical Care: Yes Time Spent Managing Pts Care (In Minutes): 35
[2020-10-09 13:31] LABS: Hematocrit 26.4 % (39.6-49.0)
[2020-10-09 13:52] LABS: Potassium 3.9 mmol/L (3.5-5.1)
[2020-10-09] MEDS ORDERED: Levofloxacin500mg IV 500 MG/100 ML BAG IV ONE (14:00)
[2020-10-09] MEDS: ENOXAPARIN 30 MG/0.3 ML SQ SCH (15:08)
[2020-10-09 16:23] LABS: Protime INR 1.52
--- NOTE | 2020-10-09 16:43 | P.PN ---
Subjective Date of Service: 10/09/20 Primary Care Provider: Marlyn Chief Complaint: hospital aquired pneumonia Subjective: No new changes, No C/O voiced Physical Examination - Vital Signs Temperature: 98.9 F Blood Pressure: 96/62 Pulse: 85 Respirations: 23 Pulse Ox (%): 94 - Physical Exam General: Cooperative, Disheveled HEENT: Atraumatic, Normocephalic Neck: Supple, 2+ carotid pulse no bruit Respiratory: Clear to auscultation bilaterally Cardiovascular: Normal pulses, Regular rate/rhythm, Normal S1 S2 - Studies Microbiology Data (last 24 hrs): 10/07/20 12:05 Blood - Blood Aerobic Blood Culture - Final 10/07/20 12:05 Blood - Blood Blood Culture Gram Stain - Final 10/07/20 12:05 Blood - Blood Anaerobic Blood Culture - Final Assessment And Plan - Current Problems (Diagnosis) (1) Anemia Current Visit: Yes Status: Acute Qualifiers: Iron deficiency anemia type: other iron deficiency (2) Pneumonia Current Visit: Yes Status: Acute Qualifiers: Pneumonia type: due to unspecified organism Laterality: left Lung location: lower lobe of lung Qualified Code(s): J18.9 - Pneumonia, unspecified organism (3) Acute renal failure Current Visit: No Status: Acute Qualifiers: Acute renal failure type: unspecified Qualified Code(s): N17.9 - Acute kidney failure, unspecified (4) Cerebral palsy Current Visit: No Status: Acute Qualifiers: Cerebral palsy type: spastic diplegic Qualified Code(s): G80.1 - Spastic diplegic cerebral palsy (5) Dysphagia Current Visit: No Status: Acute Qualifiers: Dysphagia type: unspecified Qualified Code(s): R13.10 - Dysphagia, unspecified (6) Hypernatremia Current Visit: No Status: Acute (7) Shock Current Visit: No Status: Acute Physician Review: Patient Assessed, Agree with Above Assessment and Plan Physician Review Additional Text: #ARF - cr improving to 2.55 - continue to optimize BP - keep MAP > 70 - C/W gentle IVF - likely due to ATN and pre-renal from renal hypoperfusion # Hypotension/septic shock- on IV levophed # Hypernatremia - worsening to D5W - will dose DDAVP # Met Acidosis - improving , follow # Anemia- improved to 9.1 post PRBC # Pneumonia - on abx
[2020-10-09] MEDS ORDERED: DESMOPRESSIN 4 MCG/ML AMP SQ ONE (16:45)
[2020-10-09] MEDS ORDERED: NA CHLORIDE 0.9% 100 ML ONE (18:45)
[2020-10-09] MEDS ORDERED: EPINEPHRINE/PF 1 MG/ML AMP ONE (18:48)
[2020-10-09] MEDS ORDERED: Ringers Lactate 1,000 ML IV ONE (19:32)
[2020-10-09] MEDS ORDERED: propofoL 200 MG/20 ML VIAL IV ONE (19:43)
--- NOTE | 2020-10-09 20:13 | ENDO RPT ---
[address], [address] EGD PROCEDURE REPORT EXAM DATE: 10/09/2020 PATIENT NAME: Gabriel Krishnamurthy MR#: [id number] BIRTHDATE: 1955 ATTENDING: Ton Shaffer Dr STATUS: inpatient POLICE JUSTICE: Natacha STEPHENS and Hiram Renae RN INDICATIONS: The patient is a 65 yr old Male here for an EGD due to anemia and melenic bleeding PROCEDURE PERFORMED: EGD, diagnostic MEDICATIONS: Per Anesthesia. TOPICAL ANESTHETIC: none CONSENT: The patient understands the risks and benefits of the procedure and understands that these risks include, but are not limited to: sedation, allergic reaction, infection, perforation and/or bleeding. Alternative means of evaluation and treatment include, among others: physical exam, x-rays, and/or surgical intervention. The patient elects to proceed with this endoscopic procedure. DESCRIPTION OF PROCEDURE: During intra-op preparation period all mechanical medical equipment was checked for proper function. Hand hygiene and appropriate measures for infection prevention was taken. Procedure, possible complications, and alternatives including but not limited to the possibility of bleeding, perforation, tear, infection, sepsis, need for surgery, need for blood transfusion, and anesthesia related complications were explained to the patient. After the risks, benefits and alternatives of the procedure were thoroughly explained, Informed consent was verified, confirmed and timeout was successfully executed by the treatment team. The patient was placed in the left lateral position. The patient was anesthetized with topical anesthesia. Through the anesthetized oropharyngeal area, the scope was passed without any difficulty. The [id number] ([id number]) endoscope was introduced through the mouth and advanced to the second portion of the duodenum. Retroflexed views revealed a small hiatal hernia. The gastroscope was then slowly withdrawn and removed. Whitish-yellow plaques were found in the lower esophagus. A small hiatal hernia was found. An old PEG tube was found in the body of the stomach. found in the body of the stomach. A 1 cm ulcer was found in the bulb of the duodenum. ADVERSE EVENTS: There were no complications. IMPRESSIONS: 1. Whitish-yellow plaques in the lower esophagus -> possible Rin esophagitis 2. Small hiatal hernia 3. Old PEG tube in the body of the stomach the anterior wall 7 mm superior to PEG tube in the body of the stomach -> possible PEG tube trauma with coughing to stomach mucosa 5. 1 cm ulcer with crater in the bulb of the duodenum - not actively bleeding (prior gastric biopsies 09-19-20 HP negative but positive for gastritis) RECOMMENDATIONS: 1. acid suppression therapy 2. monitor labs 3. restart TFs 4. hold anti-coagulation (e.g. ASA and Lovenox); use SCDs for DVT prophylaxis 5. Diflucan therapy REPEAT EXAM: Ton Shaffer Dr eSigned: Ton Shaffer Dr 10/09/2020 8:12 PM cc: Royer Cline CPT CODES: ICD9 CODES: PATIENT NAME: Raghu Gabriel G. MR#: [id number]
[2020-10-09 21:19] LABS: MPV 8.9 fL (7.6-11.3)
[2020-10-09 21:23] LABS: Platelet Estimate ADEQ
[2020-10-09] MEDS ORDERED: D5W 1,000 ML IV ONE (21:35)
--- NOTE | 2020-10-09 21:51 | CON ---
Date of Consultation: 10/09/2020 Reason For Consultation: GI bleed with melena, hypotension, on IV pressors, with anemia, hemoglobin of 6.1. History Of Present Illness: The patient is a 65-year-old white male with history of cerebral palsy, depression, dysphagia, dysarthria, depression, hyperlipidemia. The patient presented to the hospital with hypotension, requiring IV pressors, Levophed, with melena and anemia. Hemoglobin is down to 6. 1. [facility]. He is status post EGD with PEG tube back on September 19, 2020, whereupon mild gastritis and a 1 cm duodenal ulcer in the bulb was noted at that time. The patient was on aspirin and Eliquis for unclear reasons at prison and sustaining GI bleed with melena, h ypotension, and anemia. Hemoglobin of 6.1. There is no report by prison or nurses here at [facility] of any hematemesis, coffee-grounds emesis, nausea, vomiting, abdominal pain, hematochezia, but he does have melena. No hematuria, dysuria, polydipsia, chest pain, short of breath, seizure, or syn cope. Medications: At prison include aspirin, Eliquis. Prior medicines include lisinopril, multivit amins, Zofran, Zocor, Bactrim, Ultram, Lubriderm, Levaquin, Lidoderm, fluticasone, Colace, benzocaine , zinc, vitamin C, Arginaid powder, and Tylenol. Allergies: NKDA. Past Medical History: As stated above, hypertension, hyperlipidemia, cerebral palsy, dysphagia, dysa rthria, depression, gastritis, and duodenal ulcer in the bowel from September 19, 2020 and EGD in the ospital admission. Review of Systems: The patient has melena, hypotension, and he has most likely syncope and passed out at living facility prison. Denies any hematemesis, coffee-grounds emesis, hematochezia, hematuria, dysuria, poly dipsia, chest pain, shortness of breath, hemoptysis, lower extremity edema, muscle aches, joint aches , backaches. He does have depression but no reported anxiety. Physical Examination: Vital Signs: The patient is afebrile, on Levophed. He has a temperature 97.3 degrees Fahrenheit, pu lse 66, respirations 18, blood pressure 84/49 on Levophed, O2 saturation 100%. General: He is an elderly male, lying in bed, in no acute distress. HEENT: Normocephalic, atraumatic. Anicteric. Pupils equal, round, and reactive to light. Extraocu lar movements intact. Oropharynx dry. Neck: Supple. No masses. Respirations: Mild occasional rales in the chest. Cardiac: Regular rate and rhythm. No gallops or rubs. Abdomen: Positive bowel sounds. Soft, nontender, nondistended. No hepatomegaly. Extremities: No clubbing, cyanosis, or edema. 2+ pulses. Neuro: Alert, cannot get any orientation on this he because he do not respond, so orientation is un clear. Able to move extremities limited. Laboratory Data: Hemoglobin 6.1 yesterday, now up to 9.2 and it backed down to 8.6 this afternoon at 1 o'clock. PT of 28.5, INR of 1.8. Repeat today PT of 17.8, INR of 1.52. The patient has a sodium of 159, potassium 3.9, chloride 131, bicarb of 23, BUN of 65, creatinine of 2.55, glucose of 117, ca lcium of 7.9, total bilirubin 0.2, AST of 66, ALT 36, alkaline phosphatase 86, total protein 5.5, alb umin 4.1, and . Rapid troponin I less than 0.02. B-type natriuretic peptide of 1217. Serologies: COVID-19 test done on October 07 was negative. Chest x-ray on October 07 2 days ago showed moderate patchy left lung opacities, likely pneumonia. . Impression: 1.Gastrointestinal bleed with melena, hypotension, on IV pressors and Levophed currently. We will n eed EGD. The patient is on aspirin and Eliquis. We will need to hold aspirin and Eliquis. Also, gi ve IV platelets. 2.Anemia. Hemoglobin of 6.1 up to 9.2, now down to 8.6. Nurses studies still have some mild melena , bleeding ongoing. Need to go ahead and get platelets to reverse the aspirin. No Eliquis in 2 days , so that should be worn off . The aspirin has still effect and only 2 days off. 3.Status post PEG on September 19, 2020 with possible pus of stoma site noted on admission, however, i t was not noted on my exam today, but the patient has been on antibiotic since in the hospital from 2 days now. 4.Left pneumonia. X-ray report says left lung infiltrate does not specify whether the upper or lowe r. Will need to be on IV antibiotics. 5.Protein-calorie malnutrition with an albumin of 1.4. We will need to check pre-albumin as well an d increase tube feeds in this patient. 6.History of 1 cm duodenal ulcer in the bulb of duodenum on September 19, 2020, and negativ e gastritis by biopsies on September 19, 2020, and also history of hypertension, hyperlipidemia, cerebr al palsy, dysphagia, dysarthria, depression, and others per above. Recommendation: 1.Take serial H and H, and transfuse p.r.n. 2.PPI therapy. 3.Keep the patient n.p.o. 4.EGD urgently. 5.IV fluids and IV antibiotics. 6.Transfuse platelets which has been given before an EGD today in light of ongoing GI bleed with asp irin. Still elevated INR. 7.Check pre-albumin. 8.Hold aspirin and Eliquis at this time. MARGIE/MODL Voice ID: [id number] Report ID: [id number]
[2020-10-10] MEDS: D5W 1,000 ML IV SCH ×3 (00:07→16:21)
[2020-10-10] MEDS: NOREPINEPHRINE 4 MG in D5W 250 ML IV PRN ×2 (05:57→17:36)
[2020-10-10 06:01] LABS: Absolute Lymphocytes (CBC) 1.6 K/uL (0.7-4.9); Basophils % 0.2 % (0-1.3); MPV 8.5 fL (7.6-11.3); RBC Red Blood Cell Count 2.66 M/uL (4.33-5.43)
[2020-10-10 06:09] LABS: Protime INR 1.33
[2020-10-10 06:35] LABS: Albumin 1.5 g/dL (3.4-5.0); Bilirubin Total 0.4 mg/dL (0.2-1.0); Potassium 3.8 mmol/L (3.5-5.1); Protein, Total 5.4 g/dL (6.4-8.2)
[2020-10-10 08:12] LABS: Blood Morphology Comment NOT SEEN (NOT SEEN); Platelet Estimate ADEQ
[2020-10-10] MEDS: PANTOPRAZOLE 40 MG INJ IVP SCH (08:15)
[2020-10-10] MEDS: DOXYCYCLINE 100 MG in NA CHLORIDE 0.9% 100 ML IVPB SCH ×2 (08:17→21:00)
[2020-10-10] MEDS ORDERED: D5W 1,000 ML IV ONE ×2 (08:20→16:35)
[2020-10-10] MEDS ORDERED: PANTOPRAZOLE 40 MG INJ ONE (08:20)
--- NOTE | 2020-10-10 08:24 | P.PN ---
Subjective Date of Service: 10/10/20 Primary Care Provider: Marlyn Chief Complaint: hospital aquired pneumonia Subjective: No new changes, Improving Physical Examination - Vital Signs Temperature: 99.3 F Blood Pressure: 76/54 Pulse: 74 Respirations: 23 Pulse Ox (%): 97 - Physical Exam General: Alert, In no apparent distress HEENT: Atraumatic, Normocephalic Neck: Supple Respiratory: Clear to auscultation bilaterally Cardiovascular: Regular rate/rhythm, Normal S1 S2 Gastrointestinal: Normal bowel sounds Neurological: Other (responds to verbal interactions) - Studies Microbiology Data (last 24 hrs): 10/07/20 12:05 Blood - Blood Aerobic Blood Culture - Final 10/07/20 12:05 Blood - Blood Blood Culture Gram Stain - Final 10/07/20 12:05 Blood - Blood Anaerobic Blood Culture - Final Assessment And Plan Physician Review: Patient Assessed, Agree with Above Assessment and Plan Physician Review Additional Text: #ARF - cr improving to 2.00. - continue to optimize BP - keep MAP > 70 - C/W gentle IVF - likely due to ATN and pre-renal from renal hypoperfusion # Hypotension/septic shock- on IV levophed # Hypernatremia - Sodium now improved to 152. we will continue D5W. we will follow sodium level closely. # Met Acidosis - improving , follow # Anemia- improved to 8.1g/dL on trend of hb. we will follow trend closely. # Pneumonia - on empiric abx.
[2020-10-10] MEDS: NEPRO 1,000 ML BOT FT SCH ×4 (09:56→21:00)
[2020-10-10] MEDS: FLUCONAZOLE 100mg IVPB 100 MG/50 ML BAG IV SCH (12:17)
--- NOTE | 2020-10-10 13:47 | P.PN ---
Subjective Date of Service: 10/10/20 Primary Care Provider: Marlyn Chief Complaint: hospital aquired pneumonia Subjective: No new changes Review of Systems 10-point ROS is otherwise unremarkable Physical Examination - Vital Signs Temperature: 98.3 F Blood Pressure: 92/58 Pulse: 74 Respirations: 26 Pulse Ox (%): 95 - Physical Exam General: Alert, In no apparent distress HEENT: Atraumatic, PERRLA, EOMI Neck: Supple, JVD not distended Respiratory: Clear to auscultation bilaterally, Normal air movement Cardiovascular: Regular rate/rhythm, Normal S1 S2 Gastrointestinal: Normal bowel sounds, No tenderness Musculoskeletal: No tenderness Integumentary: No rashes Neurological: Normal speech, Normal tone, Normal affect Lymphatics: No axilla or inguinal lymphadenopathy - Studies Microbiology Data (last 24 hrs): 10/07/20 12:05 Blood - Blood Aerobic Blood Culture - Final 10/07/20 12:05 Blood - Blood Blood Culture Gram Stain - Final 10/07/20 12:05 Blood - Blood Anaerobic Blood Culture - Final Assessment And Plan - Current Problems (Diagnosis) (1) Anemia Current Visit: Yes Status: Acute Plan: Will transfuse till above 7. Will check a guaic. His absolute reticulocyte count seems to indicate bone marrow failure. Will keep supporting him. 10/10 has a duodenal ulcer. Possible andra Has not required another transfusion. Qualifiers: Iron deficiency anemia type: other iron deficiency (2) Pneumonia Current Visit: Yes Status: Acute Plan: Will give him aggressive fluids. Admit the patient to the unit. Start him on vancomycin and levaquin. Have tried calling his brother and POA. He was a DNR on the last visit. Will keep him a DNR 10/10 stap in the blood. Will await the antibiotigram. Should be covered by doxy and levaquin Qualifiers: Pneumonia type: due to unspecified organism Laterality: left Lung loca tion: lower lobe of lung Qualified Code(s): J18.9 - Pneumonia, unspecified organism (3) Acute on chronic renal failure Current Visit: No Status: Resolved Plan: consult neprhology. I have spoken to him. Most likely an acute renal failure secondary to the hypotension. Will see if he recovers with aggressive fluid treatment. 10/09 creatine continues to improve. Nephrology changed him to D5W for his fluids. Will continue to follow his creatine Hopefully we can get him off the levophed. Qualifiers: Chronic kidney disease stage: stage 2 (mild) (4) Dysphagia Current Visit: No Status: Acute Plan: He has a peg tube. However has been tolerating oral feeding. We can restart his tube feeding 10/08 He is doing better. Will start him on the Nepro. He was on 1 can of jevity qid per the last vists note. Will start him on a half can of nephro at this time. Start him on D5 1/2 N as he was getting hypoglycemic. Qualifiers: Dysphagia type: unspecified Qualified Code(s): R13.10 - Dysphagia, unspecified (5) HTN (hypertension) Current Visit: No Status: Acute Plan: Hold his htn meds for now Qualifiers: Hypertension type: essential hypertension Qualified Code(s): I10 - Essential (primary) hypertension (6) Cerebral palsy Current Visit: No Status: Acute Plan: Patient is wheelchair bound Will keep him a fall risk Qualifiers: Cerebral palsy type: spastic diplegic Qualified Code(s): G80.1 - Spastic diplegic cerebral palsy (7) Upper GI bleed Current Visit: Yes Status: Acute Plan: have consulted Dr. Bañuelos who is his gi for the Peg tube placement. monitor his blood counts and transfuse if he falls below a hb of 7 (8) UTI (urinary tract infection) Current Visit: Yes Status: Acute Plan: proteus moody in the urine. Will switch him to ceftazidine from levaquin Qualifiers: Urinary tract infection type: acute cystitis - Code Status/Comfort Care Code Status Assessed: No Physician Review: Patient Assessed, Agree with Above Assessment and Plan Physician Review Additional Text: #ARF - cr improving to 2.00. - continue to optimize BP - keep MAP > 70 - C/W gentle IVF - likely due to ATN and pre-renal from renal hypoperfusion # Hypotension/septic shock- on IV levophed # Hypernatremia - Sodium now improved to 152. we will continue D5W. we will follow sodium level closely. # Met Acidosis - improving , follow # Anemia- improved to 8.1g/dL on trend of hb. we will follow trend closely. # Pneumonia - on empiric abx. Critical Care: Yes Time Spent Managing PTS Care (In Minutes): 30
[2020-10-10] MEDS: CEFTAZIDIME 1 GM in NA CHLORIDE 0.9% 100 ML IV SCH (16:39)
[2020-10-10] MEDS ORDERED: CEFTAZIDIME 1 GM VIAL IV SCH (17:00)
--- NOTE | 2020-10-10 17:47 | P.PN ---
Subjective Date of Service: 10/11/20 Primary Care Provider: Marlyn Chief Complaint: GIB/melena, anemia, hgb 6.1, hospital acquired pneumonia Subjective: Improving (Hgb stabilizing at 8.0 to 8.6) Physical Examination - Vital Signs Temperature: 98.3 F Blood Pressure: 90/60 Pulse: 84 Respirations: 29 Pulse Ox (%): 94 Assessment And Plan - Current Problems (Diagnosis) (1) Melena Current Visit: Yes Status: Acute (2) Duodenal ulcer Current Visit: Yes Status: Acute (3) Protein calorie malnutrition Current Visit: Yes Status: Acute (4) Anemia Current Visit: Yes Status: Acute Qualifiers: Iron deficiency anemia type: other iron deficiency (5) Pneumonia Current Visit: Yes Status: Acute Qualifiers: Pneumonia type: due to unspecified organism Laterality: left Lung location: lower lobe of lung Qualified Code(s): J18.9 - Pneumonia, unspecified organism (6) Upper GI bleed Current Visit: Yes Status: Acute (7) Acute renal failure Current Visit: No Status: Acute Qualifiers: Acute renal failure type: unspecified Qualified Code(s): N17.9 - Acute kidney failure, unspecified (8) Shock Current Visit: No Status: Acute - Plan REC: 1) continue PPI therapy 2) wean Levophed as able 3) continue IV antibiotics and IVFs 4) TFs with water boluses Physician Review: Patient Assessed, Agree with Above Assessment and Plan Physician Review Additional Text: #ARF - cr improving to 2.00. - continue to optimize BP - keep MAP > 70 - C/W gentle IVF - likely due to ATN and pre-renal from renal hypoperfusion # Hypotension/septic shock- on IV levophed # Hypernatremia - Sodium now improved to 152. we will continue D5W. we will follow sodium level closely. # Met Acidosis - improving , follow # Anemia- improved to 8.1g/dL on trend of hb. we will follow trend closely. # Pneumonia - on empiric abx.
[2020-10-10] MEDS ORDERED: DOXYCYCLINE HYCLATE 100MG INJ ONE (21:21)
[2020-10-10] MEDS ORDERED: NA CHLORIDE 0.9% 100 ML ONE (21:30)
[2020-10-11] MEDS: CEFTAZIDIME 1 GM in NA CHLORIDE 0.9% 100 ML IV SCH ×2 (02:05→09:59)
[2020-10-11] MEDS ORDERED: CEFTAZIDIME 1 GM VIAL ONE (02:17)
[2020-10-11] MEDS ORDERED: NA CHLORIDE 0.9% 100 ML ONE ×2 (02:17→19:34)
[2020-10-11] MEDS: D5W 1,000 ML IV SCH ×2 (03:00→11:14)
[2020-10-11] MEDS: NOREPINEPHRINE 4 MG in D5W 250 ML IV PRN (07:35)
[2020-10-11] MEDS ORDERED: Levofloxacin500mg IV 500 MG/100 ML BAG IV SCH (09:00)
--- NOTE | 2020-10-11 09:25 | P.PN ---
Subjective Date of Service: 10/11/20 Primary Care Provider: Marlyn Chief Complaint: GIB/melena, anemia, hgb 6.1, hospital acquired pneumonia Subjective: No new changes Review of Systems 10-point ROS is otherwise unremarkable Physical Examination - Vital Signs Temperature: 100 F Blood Pressure: 86/66 Pulse: 79 Respirations: 22 Pulse Ox (%): 94 - Physical Exam General: Alert, In no apparent distress HEENT: Atraumatic, PERRLA, EOMI Neck: Supple, JVD not distended Respiratory: Clear to auscultation bilaterally, Normal air movement Cardiovascular: Regular rate/rhythm, Normal S1 S2 Gastrointestinal: Normal bowel sounds, No tenderness Musculoskeletal: No tenderness Integumentary: No rashes Neurological: Normal speech, Normal tone, Normal affect Lymphatics: No axilla or inguinal lymphadenopathy Assessment & Plan - Problems (Diagnosis) (1) Anemia Current Visit: Yes Status: Acute Plan: Will transfuse till above 7. Will check a guaic. His absolute reticulocyte count seems to indicate bone marrow failure. Will keep supporting him. 10/10 has a duodenal ulcer. Possible andra Has not required another transfusion. Qualifiers: Iron deficiency anemia type: other iron deficiency (2) Pneumonia Current Visit: Yes Status: Acute Plan: Will give him aggressive fluids. Admit the patient to the unit. Start him on vancomycin and levaquin. Have tried calling his brother and POA. He was a DNR on the last visit. Will keep him a DNR 10/10 staph in the blood. Will await the antibiotigram. Should be covered by doxy and levaquin Qualifiers: Pneumonia type: due to unspecified organism Laterality: left Lung location: lower lobe of lung Qualified Code(s): J18.9 - Pneumonia, unspecified organism (3) Acute on chronic renal failure Current Visit: No Status: Resolved Plan: consult neprhology. I have spoken to him. Most likely an acute renal failure secondary to the hypotension. Will see if he recovers with aggressive fluid treatment. 10/09 creatine continues to improve. Nephrology changed him to D5W for his fluids. Will continue to follow his creatine Hopefully we can get him off the levophed. Qualifiers: Chronic kidney disease stage: stage 2 (mild) (4) Dysphagia Current Visit: No Status: Acute Plan: He has a peg tube. However has been tolerating oral feeding. We can restart his tube feeding 10/08 He is doing better. Will start him on the Nepro. He was on 1 can of jevity qid per the last vists note. Will start him on a half can of nephro at this time. Start him on D5 1/2 N as he was getting hypoglycemic. Qualifiers: Dysphagia type: unspecified Qualified Code(s): R13.10 - Dysphagia, unspecified (5) HTN (hypertension) Current Visit: No Status: Acute Plan: Hold his htn meds for now Qualifiers: Hypertension type: essential hypertension Qualified Code(s): I10 - Essential (primary) hypertension (6) Cerebral palsy Current Visit: No Status: Acute Plan: Patient is wheelchair bound Will keep him a fall risk Qualifiers: Cerebral palsy type: spastic diplegic Qualified Code(s): G80.1 - Spastic diplegic cerebral palsy (7) Upper GI bleed Current Visit: Yes Status: Acute Plan: have consulted Dr. Bañuelos who is his gi for the Peg tube placement. monitor his blood counts and transfuse if he falls below a hb of 7 (8) UTI (urinary tract infection) Current Visit: Yes Status: Acute Plan: proteus moody in the urine. Will switch him to ceftazidine from levaquin Qualifiers: Urinary tract infection type: acute cystitis Physician Review: Patient Assessed, Agree with Above Assessment and Plan Physician Review Additional Text: #ARF - cr improving to 2.00. - continue to optimize BP - keep MAP > 70 - C/W gentle IVF - likely due to ATN and pre-renal from renal hypoperfusion # Hypotension/septic shock- on IV levophed # Hypernatremia - Sodium now improved to 152. we will continue D5W. we will follow sodium level closely. # Met Acidosis - improving , follow # Anemia- improved to 8.1g/dL on trend of hb. we will follow trend closely. # Pneumonia - on empiric abx.
[2020-10-11] MEDS ORDERED: PANTOPRAZOLE 40 MG INJ ONE (09:56)
[2020-10-11] MEDS ORDERED: NS 0.9% VIAL 10 ML ONE (09:56)
[2020-10-11] MEDS: PANTOPRAZOLE 40 MG INJ IVP SCH (09:59)
[2020-10-11] MEDS: SODIUM CHLORIDE 0.9% 10ML INJ IV PRN (09:59)
[2020-10-11] MEDS: DOXYCYCLINE 100 MG in NA CHLORIDE 0.9% 100 ML IVPB SCH ×2 (10:00→21:24)
[2020-10-11 11:26] LABS: Absolute Lymphocytes (CBC) 1.9 K/uL (0.7-4.9); Basophils % 0.2 % (0-1.3); Hematocrit 23.7 % (39.6-49.0); Lymphocytes % 10.5 % (15.3-44.8); MPV 8.8 fL (7.6-11.3); RBC Red Blood Cell Count 2.62 M/uL (4.33-5.43)
[2020-10-11] MEDS ORDERED: D5W 1,000 ML IV ONE (11:28)
[2020-10-11 11:49] LABS: Albumin 1.2 g/dL (3.4-5.0); Bilirubin Total 0.4 mg/dL (0.2-1.0); Potassium 3.1 mmol/L (3.5-5.1); Protein, Total 5.2 g/dL (6.4-8.2)
[2020-10-11] MEDS: NEPRO 1,000 ML BOT FT SCH ×4 (12:04→21:24)
[2020-10-11 12:43] LABS: Blood Morphology Comment NOT SEEN (NOT SEEN); Platelet Estimate ADEQ
[2020-10-11] MEDS: FLUCONAZOLE 100mg IVPB 100 MG/50 ML BAG IV SCH (14:47)
[2020-10-11] MEDS ORDERED: AMPICILLIN/SULBACT 1.5GM VIAL IVPB SCH (17:00)
[2020-10-11] MEDS: AMPICILLIN/SULBACT 1.5 GM in NA CHLORIDE 0.9% 100 ML IVPB SCH (17:28)
--- NOTE | 2020-10-11 18:03 | P.PN ---
Subjective Date of Service: 10/11/20 Primary Care Provider: Marlyn Chief Complaint: GIB/melena, anemia, hgb 6.1, hospital acquired pneumonia Subjective: Improving (No GIB noted by RNs, with brown-green stools. Hgb to 7.9 today. Tolerating bolus TFs. On IVFs with Na to 142 today.) Physical Examination - Vital Signs Temperature: 98.3 F Blood Pressure: 90/60 Pulse: 84 Respirations: 29 Pulse Ox (%): 94 Assessment And Plan - Current Problems (Diagnosis) (1) Melena Current Visit: Yes Status: Acute Comment: Improved. (2) Duodenal ulcer Current Visit: Yes Status: Acute (3) Protein calorie malnutrition Current Visit: Yes Status: Acute (4) Anemia Current Visit: Yes Status: Acute Qualifiers: Iron deficiency anemia type: other iron deficiency (5) Pneumonia Current Visit: Yes Status: Acute Qualifiers: Pneumonia type: due to unspecified organism Laterality: left Lung location: lower lobe of lung Qualified Code(s): J18.9 - Pneumonia, unspecified organism (6) Upper GI bleed Current Visit: Yes Status: Acute Comment: Improved. (7) Acute renal failure Current Visit: No Status: Acute Comment: Improved. Qualifiers: Acute renal failure type: unspecified Qualified Code(s): N17.9 - Acute kidney failure, unspecified (8) Shock Current Visit: No Status: Acute Comment: Improved, off Levophed today. - Plan REC: 1) continue PPI therapy 2) wean IVFs with Na now at 142 3) continue IV antibiotics 4) TFs with water boluses 5) check gastrin level 6) one unit PRBCs (in ICU, prior IV pressors / large DU bleed) Physician Review: Patient Assessed, Agree with Above Assessment and Plan Physician Review Additional Text: #ARF - cr improving to 2.00. - continue to optimize BP - keep MAP > 70 - C/W gentle IVF - likely due to ATN and pre-renal from renal hypoperfusion # Hypotension/septic shock- on IV levophed # Hypernatremia - Sodium now improved to 152. we will continue D5W. we will follow sodium level closely. # Met Acidosis - improving , follow # Anemia- improved to 8.1g/dL on trend of hb. we will follow trend closely. # Pneumonia - on empiric abx.
--- NOTE | 2020-10-11 19:08 | RAD REPORT ---
EXAM DESCRIPTION: RAD - Chest Single View - 10/11/2020 6:33 pm CLINICAL HISTORY: Pneumonia, hypoxia COMPARISON: October 07 TECHNIQUE: AP portable chest image was obtained 10/11/2020 6:33 pm . FINDINGS: Lung volumes are low compared to the prior study. Extensive alveolar opacification remains in the left lung field. The lower lung volume accentuates parenchymal density. Patient may have show n some progression since October 07. There is no improvement. No cavitation or complication evident. No progressive right lung field finding. Heart and vasculature are normal. No measurable pleural effusion and no pneumothorax. No acute bony abnormality seen. No acute aortic findings suspected. IMPRESSION: Extensive left lung field pneumonia findings accentuated by shallow inspiration. There has been no improvement since October 07 and the patient may have shown some mild progression.
[2020-10-11] MEDS ORDERED: POTASSIUM 25 MEQ EFFERV TAB PO ONE (20:50)
[2020-10-11] MEDS ORDERED: POTASSIUM 25 MEQ EFFERV TAB ONE (21:20)
[2020-10-12] MEDS: AMPICILLIN/SULBACT 1.5 GM in NA CHLORIDE 0.9% 100 ML IVPB SCH ×3 (00:22→16:50)
[2020-10-12] MEDS: D5W 1,000 ML IV SCH (00:27)
[2020-10-12] MEDS ORDERED: D5W 1,000 ML IV ONE (00:39)
[2020-10-12 05:54] LABS: Albumin 1.2 g/dL (3.4-5.0); Bilirubin Total 0.3 mg/dL (0.2-1.0); Potassium 3.5 mmol/L (3.5-5.1); Protein, Total 5.5 g/dL (6.4-8.2)
[2020-10-12 05:57] LABS: Absolute Lymphocytes (CBC) 1.5 K/uL (0.7-4.9); Basophils % 0.1 % (0-1.3); Hematocrit 25.1 % (39.6-49.0); Lymphocytes % 8.6 % (15.3-44.8); RBC Red Blood Cell Count 2.84 M/uL (4.33-5.43)
[2020-10-12 06:08] LABS: Prealbumin 5.3 mg/dL (20-40)
--- NOTE | 2020-10-12 07:55 | P.PN ---
Subjective Date of Service: 10/12/20 Primary Care Provider: Marlyn Chief Complaint: GIB/melena, anemia, hgb 6.1, hospital acquired pneumonia Subjective: No new changes Physical Examination - Vital Signs Temperature: 99.0 F Blood Pressure: 78/53 Pulse: 86 Respirations: 24 Pulse Ox (%): 95 - Physical Exam General: Alert HEENT: Atraumatic, Normocephalic Neck: Supple Respiratory: Clear to auscultation bilaterally Cardiovascular: Regular rate/rhythm, Normal S1 S2 Gastrointestinal: Normal bowel sounds Neurological: Other (alert.) Assessment And Plan Physician Review: Patient Assessed, Agree with Above Assessment and Plan Physician Review Additional Text: #ARF - creatinine is now improved to 1.5 approx. this appears to be new baseline. we will continue routine monitoring while admitted. - continue to optimize BP - keep MAP > 65mmhg. - C/W gentle IVF administration. - likely due to ATN and pre-renal from renal hypoperfusion # Hypotension/septic shock- on IV levophed and IV fluid. # Hypernatremia - Resolved. Sodium is now normal at 142. we will continue D5W at reduced dose of 40ml/hr. we will follow sodium level closely. # Met Acidosis - resolved. # Anemia- improved to 8.6g/dL. we will continue to monitor hb. # Pneumonia - on empiric abx.
[2020-10-12] MEDS ORDERED: D5W 1,000 ML IV SCH (08:00)
[2020-10-12] MEDS ORDERED: PANTOPRAZOLE 40 MG INJ ONE (08:31)
[2020-10-12] MEDS ORDERED: POTASSIUM 25 MEQ EFFERV TAB ONE (08:31)
[2020-10-12] MEDS ORDERED: NS 0.9% VIAL 10 ML ONE (08:31)
[2020-10-12] MEDS: DOXYCYCLINE 100 MG in NA CHLORIDE 0.9% 100 ML IVPB SCH ×2 (08:33→21:00)
[2020-10-12] MEDS: SODIUM CHLORIDE 0.9% 10ML INJ IV PRN (08:34)
[2020-10-12] MEDS: PANTOPRAZOLE 40 MG INJ IVP SCH (08:34)
[2020-10-12] MEDS: NEPRO 1,000 ML BOT FT SCH ×4 (08:35→21:01)
[2020-10-12] MEDS ORDERED: POTASSIUM 25 MEQ EFFERV TAB PO ONE (09:00)
--- NOTE | 2020-10-12 09:16 | P.PN ---
Subjective Date of Service: 10/12/20 Primary Care Provider: Marlyn Chief Complaint: GIB/melena, anemia, hgb 6.1, hospital acquired pneumonia Subjective: Improving (Off the levophed. His [id number]) Review of Systems 10-point ROS is otherwise unremarkable Physical Examination - Vital Signs Temperature: 99.0 F Blood Pressure: 78/53 Pulse: 86 Respirations: 24 Pulse Ox (%): 95 - Physical Exam General: Alert, In no apparent distress HEENT: Atraumatic, PERRLA, EOMI Neck: Supple, JVD not distended Respiratory: Clear to auscultation bilaterally, Normal air movement Cardiovascular: Regular rate/rhythm, Normal S1 S2 Gastrointestinal: Normal bowel sounds, No tenderness Musculoskeletal: No tenderness Integumentary: No rashes Neurological: Normal speech, Normal tone, Normal affect Lymphatics: No axilla or inguinal lymphadenopathy Assessment & Plan - Problems (Diagnosis) (1) Pneumonia Current Visit: Yes Status: Acute Plan: Will give him aggressive fluids. Admit the patient to the unit. Start him on vancomycin and levaquin. Have tried calling his brother and POA. He was a DNR on the last visit. Will keep him a DNR 10/10 staph in the blood. Will await the antibiotigram. Should be covered by doxy and levaquin Qualifiers: Pneumonia type: due to unspecified organism Laterality: left Lung location: lower lobe of lung Qualified Code(s): J18.9 - Pneumonia, unspecified organism (2) Anemia Current Visit: Yes Status: Acute Plan: Will transfuse till above 7. Will check a guaic. His absolute reticulocyte count seems to indicate bone marrow failure. Will keep supporting him. 10/10 has a duodenal ulcer. Possible andra Has not required another transfusion. Qualifiers: Iron deficiency anemia type: other iron deficiency (3) Acute on chronic renal failure Current Visit: No Status: Resolved Plan: consult neprhology. I have spoken to him. Most likely an acute renal failure secondary to the hypotension. Will see if he recovers with aggressive fluid treatment. 10/09 creatine continues to improve. Nephrology changed him to D5W for his fluids. Will continue to follow his creatine Hopefully we can get him off the levophed. Qualifiers: Chronic kidney disease stage: stage 2 (mild) (4) Dysphagia Current Visit: No Status: Acute Plan: He has a peg tube. However has been tolerating oral feeding. We can restart his tube feeding 10/08 He is doing better. Will start him on the Nepro. He was on 1 can of jevity qid per the last vists note. Will start him on a half can of nephro at this time. Start him on D5 1/2 N as he was getting hypoglycemic. Qualifiers: Dysphagia type: unspecified Qualified Code(s): R13.10 - Dysphagia, unspecified (5) HTN (hypertension) Current Visit: No Status: Acute Plan: Hold his htn meds for now Qualifiers: Hypertension type: essential hypertension Qualified Code(s): I10 - Essential (primary) hypertension (6) Cerebral palsy Current Visit: No Status: Acute Plan: Patient is wheelchair bound Will keep him a fall risk Qualifiers: Cerebral palsy type: spastic diplegic Qualified Code(s): G80.1 - Spastic diplegic cerebral palsy (7) Upper GI bleed Current Visit: Yes Status: Acute Plan: have consulted Dr. Bañuelos who is his gi for the Peg tube placement. monitor his blood counts and transfuse if he falls below a hb of 7 (8) UTI (urinary tract infection) Current Visit: Yes Status: Acute Plan: proteus moody in the urine. Will switch him to ceftazidine from levaquin Qualifiers: Urinary tract infection type: acute cystitis Discharge Plan: Halfway Plan to discharge in: 48 Hours - Code Status/Comfort Care Code Status Assessed: No Physician Review: Patient Assessed, Agree with Above Assessment and Plan Physician Review Additional Text: #ARF - creatinine is now improved to 1.5 approx. this appears to be new baseline. we will continue routine monitoring while admitted. - continue to optimize BP - keep MAP > 65mmhg. - C/W gentle IVF administration. - likely due to ATN and pre-renal from renal hypoperfusion # Hypotension/septic shock- on IV levophed and IV fluid. # Hypernatremia - Resolved. Sodium is now normal at 142. we will continue D5W at reduced dose of 40ml/hr. we will follow sodium level closely. # Met Acidosis - resolved. # Anemia- improved to 8.6g/dL. we will continue to monitor hb. # Pneumonia - on empiric abx. Critical Care: Yes Time Spent Managing Pts Care (In Minutes): 25
[2020-10-12] MEDS: FLUCONAZOLE 100mg IVPB 100 MG/50 ML BAG IV SCH (10:27)
[2020-10-13] MEDS: AMPICILLIN/SULBACT 1.5 GM in NA CHLORIDE 0.9% 100 ML IVPB SCH ×3 (00:21→16:56)
[2020-10-13] MEDS ORDERED: D5W 1,000 ML IV ONE (03:22)
[2020-10-13] MEDS: D5W 1,000 ML IV SCH ×2 (04:35→20:21)
[2020-10-13 04:54] LABS: Absolute Lymphocytes (CBC) 1.5 K/uL (0.7-4.9); Basophils % 0.1 % (0-1.3); Hematocrit 24.9 % (39.6-49.0); Lymphocytes % 7.7 % (15.3-44.8); RBC Red Blood Cell Count 2.79 M/uL (4.33-5.43)
[2020-10-13 05:11] LABS: Albumin 1.3 g/dL (3.4-5.0); Bilirubin Total 0.3 mg/dL (0.2-1.0); Potassium 3.7 mmol/L (3.5-5.1); Protein, Total 5.6 g/dL (6.4-8.2)
--- NOTE | 2020-10-13 07:36 | P.PN ---
Subjective Date of Service: 10/13/20 Primary Care Provider: Marlyn Chief Complaint: GIB/melena, anemia, hgb 6.1, hospital acquired pneumonia Subjective: No new changes, Improving Physical Examination - Vital Signs Temperature: 97.6 F Blood Pressure: 88/65 Pulse: 85 Respirations: 22 Pulse Ox (%): 99 - Physical Exam General: Alert, Cooperative HEENT: Atraumatic, Normocephalic Neck: Supple Respiratory: Clear to auscultation bilaterally Cardiovascular: No edema, Regular rate/rhythm, Normal S1 S2 Gastrointestinal: Normal bowel sounds Musculoskeletal: No erythema Neurological: Cranial nerves 3-12 intact, Other (alert, communicative.) - Studies Microbiology Data (last 24 hrs): 10/07/20 11:50 Blood - Blood Aerobic Blood Culture - Final 10/07/20 11:50 Blood - Blood Blood Culture Gram Stain - Final 10/07/20 11:50 Blood - Blood Anaerobic Blood Culture - Final No growth in 5 days. Assessment And Plan Physician Review: Patient Assessed, Agree with Above Assessment and Plan Physician Review Additional Text: #ARF - creatinine is now improved to 1.30 today. we will continue routine monitoring while admitted. - continue to optimize BP - keep MAP > 65mmhg. - C/W gentle IVF administration. - likely due to ATN and pre-renal issues from renal hypoperfusion # Hypotension/septic shock- on IV levophed and IV fluid. # Hypernatremia - Resolved. Sodium is now normal at 143. we will continue D5W at reduced dose of 40ml/hr. we will follow sodium level closely. # Met Acidosis - resolved. # Anemia- improved to 8.6g/dL. we will continue to monitor hb. # Pneumonia - on empiric abx. #UTI-urine culture grew ESBL Proteus mirabilis. Antibiotics on board.
[2020-10-13] MEDS: SODIUM CHLORIDE 0.9% 10ML INJ IV PRN (08:19)
[2020-10-13] MEDS: NEPRO 1,000 ML BOT FT SCH ×4 (08:32→21:00)
[2020-10-13] MEDS: DOXYCYCLINE 100 MG in NA CHLORIDE 0.9% 100 ML IVPB SCH (08:32)
[2020-10-13] MEDS: PANTOPRAZOLE 40 MG INJ IVP SCH (08:32)
[2020-10-13] MEDS ORDERED: POTASSIUM 25 MEQ EFFERV TAB ONE (08:44)
[2020-10-13] MEDS ORDERED: PANTOPRAZOLE 40 MG INJ ONE (08:44)
[2020-10-13] MEDS ORDERED: POTASSIUM 25 MEQ EFFERV TAB PO ONE (09:00)
[2020-10-13] MEDS ORDERED: NA CHLORIDE 0.9% 500 ML IV ONE (10:33)
[2020-10-13] MEDS: FLUCONAZOLE 100mg IVPB 100 MG/50 ML BAG IV SCH (10:41)
[2020-10-13] MEDS ORDERED: NA CHLORIDE 0.9% 500 ML ONE (10:54)
--- NOTE | 2020-10-13 16:41 | P.PN ---
Subjective Date of Service: 10/13/20 Primary Care Provider: Marlyn Chief Complaint: GIB/melena, anemia, hgb 6.1, hospital acquired pneumonia Subjective: No new changes Review of Systems 10-point ROS is otherwise unremarkable Physical Examination - Vital Signs Temperature: 98.5 F Blood Pressure: 97/64 Pulse: 79 Respirations: 24 Pulse Ox (%): 93 - Physical Exam General: Alert, In no apparent distress HEENT: Atraumatic, PERRLA, EOMI Neck: Supple, JVD not distended Respiratory: Clear to auscultation bilaterally, Normal air movement Cardiovascular: Regular rate/rhythm, Normal S1 S2 Gastrointestinal: Normal bowel sounds, No tenderness Musculoskeletal: No tenderness Integumentary: No rashes Neurological: Normal speech, Normal tone, Normal affect Lymphatics: No axilla or inguinal lymphadenopathy - Studies Microbiology Data (last 24 hrs): 10/07/20 11:50 Blood - Blood Aerobic Blood Culture - Final 10/07/20 11:50 Blood - Blood Blood Culture Gram Stain - Final 10/07/20 11:50 Blood - Blood Anaerobic Blood Culture - Final No growth in 5 days. Assessment & Plan - Problems (Diagnosis) (1) Pneumonia Current Visit: Yes Status: Acute Plan: Will give him aggressive fluids. Admit the patient to the unit. Start him on vancomycin and levaquin. Have tried calling his brother and POA. He was a DNR on the last visit. Will keep him a DNR 10/10 staph in the blood. Will await the antibiotigram. Should be covered by doxy and levaquin Qualifiers: Pneumonia type: due to unspecified organism Laterality: left Lung location: lower lobe of lung Qualified Code(s): J18.9 - Pneumonia, unspecified organism (2) Anemia Current Visit: Yes Status: Acute Plan: Will transfuse till above 7. Will check a guaic. His absolute reticulocyte count seems to indicate bone marrow failure. Will keep supporting him. 10/10 has a duodenal ulcer. Possible andra Has not required another transfusion. Qualifiers: Iron deficiency anemia type: other iron deficiency (3) Acute on chronic renal failure Current Visit: No Status: Resolved Plan: consult neprhology. I have spoken to him. Most likely an acute renal failure secondary to the hypotension. Will see if he recovers with aggressive fluid treatment. 10/09 creatine continues to improve. Nephrology changed him to D5W for his fluids. Will continue to follow his creatine Hopefully we can get him off the levophed. Qualifiers: Chronic kidney disease stage: stage 2 (mild) (4) Dysphagia Current Visit: No Status: Acute Plan: He has a peg tube. However has been tolerating oral feeding. We can restart his tube feeding 10/08 He is doing better. Will start him on the Nepro. He was on 1 can of jevity qid per the last vists note. Will start him on a half can of nephro at this time. Start him on D5 11/12 N as he was getting hypoglycemic. Qualifiers: Dysphagia type: unspecified Qualified Code(s): R13.10 - Dysphagia, unspecified (5) HTN (hypertension) Current Visit: No Status: Acute Plan: Hold his htn meds for now Qualifiers: Hypertension type: essential hypertension Qualified Code(s): I10 - Essential (primary) hypertension (6) Cerebral palsy Current Visit: No Status: Acute Plan: Patient is wheelchair bound Will keep him a fall risk Qualifiers: Cerebral palsy type: spastic diplegic Qualified Code(s): G80.1 - Spastic diplegic cerebral palsy (7) Upper GI bleed Current Visit: Yes Status: Acute Plan: have consulted Dr. Bañuelos who is his gi for the Peg tube placement. monitor his blood counts and transfuse if he falls below a hb of 7 (8) UTI (urinary tract infection) Current Visit: Yes Status: Acute Plan: proteus moody in the urine. Will switch him to ceftazidine from levaquin Qualifiers: Urinary tract infection type: acute cystitis Discharge Plan: Correction Plan to discharge in: Greater than 2 days - Code Status/Comfort Care Code Status Assessed: No Physician Review: Patient Assessed, Agree with Above Assessment and Plan Physician Review Additional Text: #ARF - creatinine is now improved to 1.30 today. we will continue routine [place] toring while admitted. - continue to optimize BP - keep MAP > 65mmhg. - C/W gentle IVF administration. - likely due to ATN and pre-renal issues from renal hypoperfusion # Hypotension/septic shock- on IV levophed and IV fluid. # Hypernatremia - Resolved. Sodium is now normal at 143. we will continue D5W at reduced dose of 40ml/hr. we will follow sodium level closely. # Met Acidosis - resolved. # Anemia- improved to 8.6g/dL. we will continue to monitor hb. # Pneumonia - on empiric abx. #UTI-urine culture grew ESBL Proteus mirabilis. Antibiotics on board. Critical Care: No Time Spent Managing Pts Care (In Minutes): 25
[2020-10-13] MEDS ORDERED: DOXYCYCLINE 100 MG CAP PO SCH (21:00)
[2020-10-14] MEDS: AMPICILLIN/SULBACT 1.5 GM in NA CHLORIDE 0.9% 100 ML IVPB SCH ×3 (01:25→17:00)
[2020-10-14] MEDS: DOXYCYCLINE 100 MG CAP PO SCH ×3 (01:25→22:24)
[2020-10-14 06:45] LABS: Absolute Lymphocytes (CBC) 1.6 K/uL (0.7-4.9); Basophils % 0.6 % (0-1.3); Hematocrit 24.6 % (39.6-49.0); Lymphocytes % 8.5 % (15.3-44.8); MPV 8.8 fL (7.6-11.3); RBC Red Blood Cell Count 2.77 M/uL (4.33-5.43)
[2020-10-14 07:05] LABS: Albumin 1.3 g/dL (3.4-5.0); Bilirubin Total 0.3 mg/dL (0.2-1.0); Protein, Total 5.7 g/dL (6.4-8.2)
--- NOTE | 2020-10-14 07:56 | P.PN ---
Subjective Date of Service: 10/14/20 Primary Care Provider: Malryn Chief Complaint: GIB/melena, anemia, hgb 6.1, hospital acquired pneumonia Subjective: No new changes Physical Examination - Vital Signs Temperature: 98.1 F Blood Pressure: 97/52 Pulse: 92 Respirations: 18 Pulse Ox (%): 94 - Physical Exam General: Alert, Oriented x3 HEENT: Atraumatic, Normocephalic Neck: Supple Respiratory: Clear to auscultation bilaterally Cardiovascular: Regular rate/rhythm, Normal S1 S2 Gastrointestinal: Normal bowel sounds, Soft and benign, Other (peg tube in place.) Musculoskeletal: No swelling Neurological: Cranial nerves 3-12 intact - Studies Microbiology Data (last 24 hrs): 10/07/20 11:50 Blood - Blood Aerobic Blood Culture - Final 10/07/20 11:50 Blood - Blood Blood Culture Gram Stain - Final 10/07/20 11:50 Blood - Blood Anaerobic Blood Culture - Final No growth in 5 days. Assessment And Plan Physician Review: Patient Assessed, Agree with Above Assessment and Plan Physician Review Additional Text: #ARF - creatinine is now improved to 1.25 today. we will continue routine monitoring while admitted. - continue to optimize BP - keep MAP > 65mmhg. - C/W gentle IVF administration. - likely due to ATN and pre-renal issues from renal hypoperfusion # Hypotension/septic shock- on IV levophed and IV fluid. # Hypernatremia - Resolved. Sodium is now normal at 142. we will continue D5W at reduced dose of 40ml/hr. we will follow sodium level closely. # Met Acidosis - resolved. # Anemia- Hb is stable at 8.2 g/dL. we will continue to monitor hb. # Pneumonia - on empiric abx. #UTI-urine culture grew ESBL Proteus mirabilis. Antibiotics on board.
[2020-10-14] MEDS: D5W 1,000 ML IV SCH (08:05)
[2020-10-14 08:24] LABS: Blood Morphology Comment NOT SEEN (NOT SEEN); Platelet Estimate ADEQ; Platelets, Giant FEW
[2020-10-14] MEDS: FLUCONAZOLE 100mg IVPB 100 MG/50 ML BAG IV SCH (10:30)
[2020-10-14] MEDS: PANTOPRAZOLE 40 MG INJ IVP SCH (10:30)
[2020-10-14] MEDS: NEPRO 1,000 ML BOT FT SCH ×4 (10:32→21:00)
--- NOTE | 2020-10-14 16:55 | P.PN ---
Subjective Date of Service: 10/14/20 Primary Care Provider: Marlyn Chief Complaint: GIB/melena, anemia, hgb 6.1, hospital acquired pneumonia Subjective: Improving (Hgb stable. s/p Duodenal ulcer bleed. Tolerating TFs) Physical Examination - Vital Signs Temperature: 97.7 F Blood Pressure: 86/60 Pulse: 89 Respirations: 16 Pulse Ox (%): 95 - Physical Exam General: Alert, Cooperative, Disheveled HEENT: Atraumatic, Normocephalic, PERRLA, Mucous membr. moist/pink, EOMI Neck: Supple Respiratory: Normal air movement Cardiovascular: Normal pulses Gastrointestinal: Soft and benign, No tenderness, No rebound, No guarding Assessment And Plan - Current Problems (Diagnosis) (1) Melena Current Visit: Yes Status: Acute Comment: Improved. (2) Duodenal ulcer Current Visit: Yes Status: Acute (3) Protein calorie malnutrition Current Visit: Yes Status: Acute (4) Anemia Current Visit: Yes Status: Acute Qualifiers: Iron deficiency anemia type: other iron deficiency (5) Pneumonia Current Visit: Yes Status: Acute Qualifiers: Pneumonia type: due to unspecified organism Laterality: left Lung location: lower lobe of lung Qualified Code(s): J18.9 - Pneumonia, unspecified organism (6) Upper GI bleed Current Visit: Yes Status: Acute Comment: Improved. (7) Acute renal failure Current Visit: No Status: Acute Comment: Improved. Qualifiers: Acute renal failure type: unspecified Qualified Code(s): N17.9 - Acute kidney failure, unspecified (8) Shock Current Visit: No Status: Acute Comment: Improved, off Levophed today. (9) Hypernatremia Current Visit: No Status: Acute - Plan REC: 1) continue PPI therapy 2) continue IV antibiotics 3) continue TFs with water boluses 4) await gastrin level Physician Review: Patient Assessed, Agree with Above Assessment and Plan Physician Review Additional Text: #ARF - creatinine is now improved to 1.25 today. we will continue routine monitoring while admitted. - continue to optimize BP - keep MAP > 65mmhg. - C/W gentle IVF administration. - likely due to ATN and pre-renal issues from renal hypoperfusion # Hypotension/septic shock- on IV levophed and IV fluid. # Hypernatremia - Resolved. Sodium is now normal at 142. we will continue D5W at reduced dose of 40ml/hr. we will follow sodium level closely. # Met Acidosis - resolved. # Anemia- Hb is stable at 8.2 g/dL. we will continue to monitor hb. # Pneumonia - on empiric abx. #UTI-urine culture grew ESBL Proteus mirabilis. Antibiotics on board.
--- NOTE | 2020-10-14 18:08 | P.PN ---
Subjective Date of Service: 10/14/20 Primary Care Provider: Marlyn Chief Complaint: GIB/melena, anemia, hgb 6.1, hospital acquired pneumonia Subjective: No new changes Review of Systems 10-point ROS is otherwise unremarkable Physical Examination - Vital Signs Temperature: 97.7 F Blood Pressure: 86/60 Pulse: 89 Respirations: 16 Pulse Ox (%): 95 - Physical Exam General: Alert, In no apparent distress HEENT: Atraumatic, PERRLA, EOMI Neck: Supple, JVD not distended Respiratory: Clear to auscultation bilaterally, Normal air movement Cardiovascular: Regular rate/rhythm, Normal S1 S2 Gastrointestinal: Normal bowel sounds, No tenderness Musculoskeletal: No tenderness Integumentary: No rashes Neurological: Normal speech, Normal tone, Normal affect Lymphatics: No axilla or inguinal lymphadenopathy Assessment & Plan - Problems (Diagnosis) (1) Pneumonia Current Visit: Yes Status: Acute Plan: Will give him aggressive fluids. Admit the patient to the unit. Start him on vancomycin and levaquin. Have tried calling his brother and POA. He was a DNR on the last visit. Will keep him a DNR 10/10 staph in the blood. Will await the antibiotigram. Should be covered by doxy and levaquin Qualifiers: Pneumonia type: due to unspecified organism Laterality: left Lung location: lower lobe of lung Qualified Code(s): J18.9 - Pneumonia, unspecified organism (2) Anemia Current Visit: Yes Status: Acute Plan: Will transfuse till above 7. Will check a guaic. His absolute reticulocyte count seems to indicate bone marrow failure. Will keep supporting him. 10/10 has a duodenal ulcer. Possible andra Has not required another transfusion. Qualifiers: Iron deficiency anemia type: other iron deficiency (3) Acute on chronic renal failure Current Visit: No Status: Resolved Plan: consult neprhology. I have spoken to him. Most likely an acute renal failure secondary to the hypotension. Will see if he recovers with aggressive fluid treatment. 10/09 creatine continues to improve. Nephrology changed him to D5W for his fluids. Will continue to follow his creatine Hopefully we can get him off the levophed. Qualifiers: Chronic kidney disease stage: stage 2 (mild) (4) Dysphagia Current Visit: No Status: Acute Plan: He has a peg tube. However has been tolerating oral feeding. We can restart his tube feeding 10/08 He is doing better. Will start him on the Nepro. He was on 1 can of jevity qid per the last vists note. Will start him on a half can of nephro at this time. Start him on D5 1/2 N as he was getting hypoglycemic. Qualifiers: Dysphagia type: unspecified Qualified Code(s): R13.10 - Dysphagia, unspecified (5) HTN (hypertension) Current Visit: No Status: Acute Plan: Hold his htn meds for now Qualifiers: Hypertension type: essential hypertension Qualified Code(s): I10 - Essential (primary) hypertension (6) Cerebral palsy Current Visit: No Status: Acute Plan: Patient is wheelchair bound Will keep him a fall risk Qualifiers: Cerebral palsy type: spastic diplegic Qualified Code(s): G80.1 - Spastic diplegic cerebral palsy (7) Upper GI bleed Current Visit: Yes Status: Acute Plan: have consulted Dr. Bañuelos who is his gi for the Peg tube placement. monitor his blood counts and transfuse if he falls below a hb of 7 (8) UTI (urinary tract infection) Current Visit: Yes Status: Acute Plan: proteus moody in the urine. Will switch him to ceftazidine from levaquin Qualifiers: Urinary tract infection type: acute cystitis Discharge Plan: Half-Way Plan to discharge in: Greater than 2 days - Code Status/Comfort Care Code Status Assessed: No Physician Review: Patient Assessed, Agree with Above Assessment and Plan Physician Review Additional Text: #ARF - creatinine is now improved to 1.25 today. we will continue routine monitoring while admitted. - continue to optimize BP - keep MAP > 65mmhg. - C/W gentle IVF administration. - likely due to ATN and pre-renal issues from renal hypoperfusion # Hypotension/septic shock- on IV levophed and IV fluid. # Hypernatremia - Resolved. Sodium is now normal at 142. we will continue D5W at reduced dose of 40ml/hr. we will follow sodium level closely. # Met Acidosis - resolved. # Anemia- Hb is stable at 8.2 g/dL. we will continue to monitor hb. # Pneumonia - on empiric abx. #UTI-urine culture grew ESBL Proteus mirabilis. Antibiotics on board. Critical Care: No Time Spent Managing Pts Care (In Minutes): 20
[2020-10-15] MEDS: AMPICILLIN/SULBACT 1.5 GM in NA CHLORIDE 0.9% 100 ML IVPB SCH ×2 (00:48→10:00)
[2020-10-15] MEDS: D5W 1,000 ML IV SCH ×2 (00:49→22:21)
--- NOTE | 2020-10-15 07:52 | P.PN ---
Subjective Date of Service: 10/15/20 Primary Care Provider: Marlyn Chief Complaint: GIB/melena, anemia, hgb 6.1, hospital acquired pneumonia Subjective: No new changes Physical Examination - Vital Signs Temperature: 98.1 F Blood Pressure: 97/52 Pulse: 92 Respirations: 18 Pulse Ox (%): 94 - Physical Exam General: Alert, Cooperative HEENT: Atraumatic, Normocephalic Neck: Supple Respiratory: Clear to auscultation bilaterally Cardiovascular: No edema, Regular rate/rhythm, Normal S1 S2 Gastrointestinal: Normal bowel sounds Neurological: Normal speech, Cranial nerves 3-12 intact Assessment And Plan Physician Review: Patient Assessed, Agree with Above Assessment and Plan Physician Review Additional Text: #ARF - creatinine is now improved to 1.25 on last check. we will continue routine monitoring while admitted. - continue to optimize BP - keep MAP > 65mmhg. - C/W gentle IVF administration. - likely due to ATN and pre-renal issues from renal hypoperfusion # Hypotension/septic shock- now off levophed. we will continue to monitor. # Hypernatremia - Resolved. Sodium is now normal at 142. we will continue D5W at reduced dose of 40ml/hr. we will follow sodium level closely. # Met Acidosis - resolved. # Anemia- Hb is stable at 8.2 g/dL. we will continue to monitor hb. # Pneumonia - on empiric abx. #UTI-urine culture grew ESBL Proteus mirabilis. Antibiotics on board.
[2020-10-15] MEDS: DOXYCYCLINE 100 MG CAP PO SCH ×2 (10:00→20:55)
[2020-10-15] MEDS: PANTOPRAZOLE 40 MG INJ IVP SCH (10:00)
[2020-10-15] MEDS: FLUCONAZOLE 100 MG TAB PO SCH (10:00)
[2020-10-15] MEDS: NEPRO 1,000 ML BOT FT SCH ×4 (10:01→20:56)
--- NOTE | 2020-10-15 10:54 | P.PN ---
Subjective Date of Service: 10/15/20 Primary Care Provider: Marlyn Chief Complaint: GIB/melena, anemia, hgb 6.1, hospital acquired pneumonia Subjective: No new changes Review of Systems 10-point ROS is otherwise unremarkable Physical Examination - Vital Signs Temperature: 98.1 F Blood Pressure: 97/52 Pulse: 92 Respirations: 18 Pulse Ox (%): 94 - Physical Exam General: Alert, In no apparent distress HEENT: Atraumatic, PERRLA, EOMI Neck: Supple, JVD not distended Respiratory: Clear to auscultation bilaterally, Normal air movement Cardiovascular: Regular rate/rhythm, Normal S1 S2 Gastrointestinal: Normal bowel sounds, No tenderness Musculoskeletal: No tenderness Integumentary: No rashes Neurological: Normal speech, Normal tone, Normal affect Lymphatics: No axilla or inguinal lymphadenopathy Assessment & Plan - Problems (Diagnosis) (1) Pneumonia Current Visit: Yes Status: Acute Plan: Will give him aggressive fluids. Admit the patient to the unit. Start him on vancomycin and levaquin. Have tried calling his brother and POA. He was a DNR on the last visit. Will keep him a DNR 10/15 will switch him to oral medications. Start working with PT. Qualifiers: Pneumonia type: due to unspecified organism Laterality: left Lung location: lower lobe of lung Qualified Code(s): J18.9 - Pneumonia, unspecified organism (2) Anemia Current Visit: Yes Status: Acute Plan: Will transfuse till above 7. Will check a guaic. His absolute reticulocyte count seems to indicate bone marrow failure. Will keep supporting him. 10/10 has a duodenal ulcer. Possible andra Has not required another transfusion. Qualifiers: Iron deficiency anemia type: other iron deficiency (3) Acute on chronic renal failure Current Visit: No Status: Resolved Plan: consult neprhology. I have spoken to him. Most likely an acute renal failure secondary to the hypotension. Will see if he recovers with aggressive fluid treatment. 10/09 creatine continues to improve. Nephrology changed him to D5W for his fluids. Will continue to follow his creatine Hopefully we can get him off the levophed. Qualifiers: Chronic kidney disease stage: stage 2 (mild) (4) Dysphagia Current Visit: No Status: Acute Plan: He has a peg tube. However has been tolerating oral feeding. We can restart his tube feeding 10/08 He is doing better. Will start him on the Nepro. He was on 1 can of jevity qid per the last vists note. Will start him on a half can of nephro at this time. Start him on D5 1/2 N as he was getting hypoglycemic. Qualifiers: Dysphagia type: unspecified Qualified Code(s): R13.10 - Dysphagia, unspecified (5) HTN (hypertension) Current Visit: No Status: Acute Plan: Hold his htn meds for now Qualifiers: Hypertension type: essential hypertension Qualified Code(s): I10 - Essential (primary) hypertension (6) Cerebral palsy Current Visit: No Status: Acute Plan: Patient is wheelchair bound Will keep him a fall risk Qualifiers: Cerebral palsy type: spastic diplegic Qualified Code(s): G80.1 - Spastic diplegic cerebral palsy (7) Upper GI bleed Current Visit: Yes Status: Acute Plan: have consulted Dr. Bañuelos who is his gi for the Peg tube placement. monitor his blood counts and transfuse if he falls below a hb of 7 (8) UTI (urinary tract infection) Current Visit: Yes Status: Acute Plan: proteus moody in the urine. Will switch him to ceftazidine from levaquin Qualifiers: Urinary tract infection type: acute cystitis Discharge Plan: [facility] Plan to discharge in: 24 Hours - Code Status/Comfort Care Code Status Assessed: No Physician Review: Patient Assessed, Agree with Above Assessment and Plan Physician Review Additional Text: #ARF - creatinine is now improved to 1.25 on last check. we will continue routine monitoring while admitted. - continue to optimize BP - keep MAP > 65mmhg. - C/W gentle IVF administration. - likely due to ATN and pre-renal issues from renal hypoperfusion # Hypotension/septic shock- now off levophed. we will continue to monitor. # Hypernatremia - Resolved. Sodium is now normal at 142. we will continue D5W at reduced dose of 40ml/hr. we will follow sodium level closely. # Met Acidosis - resolved. # Anemia- Hb is stable at 8.2 g/dL. we will continue to monitor hb. # Pneumonia - on empiric abx. #UTI-urine culture grew ESBL Proteus mirabilis. Antibiotics on board. Critical Care: No Time Spent Managing Pts Care (In Minutes): 20
--- NOTE | 2020-10-15 17:36 | P.PN ---
Subjective Date of Service: 10/15/20 Primary Care Provider: Marlyn Chief Complaint: GIB/melena, anemia, hgb 6.1, hospital acquired pneumonia Subjective: No new changes (Sleeping comfortably.) Physical Examination - Vital Signs Temperature: 97 F Blood Pressure: 96/61 Pulse: 76 Respirations: 16 Pulse Ox (%): 98 - Physical Exam HEENT: Atraumatic, Normocephalic Neck: Supple Respiratory: Normal air movement Cardiovascular: Normal pulses Gastrointestinal: Soft and benign Assessment And Plan - Current Problems (Diagnosis) (1) Melena Current Visit: Yes Status: Acute Comment: Improved. (2) Duodenal ulcer Current Visit: Yes Status: Acute (3) Protein calorie malnutrition Current Visit: Yes Status: Acute (4) Anemia Current Visit: Yes Status: Acute Qualifiers: Iron deficiency anemia type: other iron deficiency (5) Pneumonia Current Visit: Yes Status: Acute Qualifiers: Pneumonia type: due to unspecified organism Laterality: left Lung location: lower lobe of lung Qualified Code(s): J18.9 - Pneumonia, unspecified organism (6) Upper GI bleed Current Visit: Yes Status: Acute Comment: Improved. (7) Acute renal failure Current Visit: No Status: Acute Comment: Improved. Qualifiers: Acute renal failure type: unspecified Qualified Code(s): N17.9 - Acute kidney failure, unspecified (8) Shock Current Visit: No Status: Acute Comment: Improved, off Levophed today. (9) Hypernatremia Current Visit: No Status: Acute - Plan REC: 1) continue PPI therapy 2) continue IV antibiotics 3) continue TFs with water boluses 4) await gastrin level Physician Review: Patient Assessed, Agree with Above Assessment and Plan Physician Review Additional Text: #ARF - creatinine is now improved to 1.25 on last check. we will continue routine monitoring while admitted. - continue to optimize BP - keep MAP > 65mmhg. - C/W gentle IVF administration. - likely due to ATN and pre-renal issues from renal hypoperfusion # Hypotension/septic shock- now off levophed. we will continue to monitor. # Hypernatremia - Resolved. Sodium is now normal at 142. we will continue D5W at reduced dose of 40ml/hr. we will follow sodium level closely. # Met Acidosis - resolved. # Anemia- Hb is stable at 8.2 g/dL. we will continue to monitor hb. # Pneumonia - on empiric abx. #UTI-urine culture grew ESBL Proteus mirabilis. Antibiotics on board.
[2020-10-15] MEDS: AMOX/K CLAV 875 MG TAB PO SCH (20:55)
[2020-10-16 05:38] LABS: Absolute Lymphocytes (CBC) 1.9 K/uL (0.7-4.9); Basophils % 0.8 % (0-1.3); Hematocrit 25.4 % (39.6-49.0); MPV 8.8 fL (7.6-11.3); RBC Red Blood Cell Count 2.83 M/uL (4.33-5.43)
[2020-10-16 06:02] LABS: Magnesium 1.7 mg/dL (1.8-2.4); Phosphorus 3.6 mg/dL (2.5-4.9); Potassium 4.3 mmol/L (3.5-5.1)
[2020-10-16] MEDS: PANTOPRAZOLE 40 MG INJ IVP SCH (09:06)
[2020-10-16] MEDS: DOXYCYCLINE 100 MG CAP PO SCH ×2 (09:06→21:00)
[2020-10-16] MEDS: AMOX/K CLAV 875 MG TAB PO SCH ×2 (09:07→21:01)
[2020-10-16] MEDS: FLUCONAZOLE 100 MG TAB PO SCH (09:07)
[2020-10-16] MEDS: NEPRO 1,000 ML BOT FT SCH ×4 (09:07→21:01)
[2020-10-16] MEDS: D5W 1,000 ML IV SCH (10:30)
--- NOTE | 2020-10-16 11:29 | P.PN ---
Subjective Date of Service: 10/16/20 Primary Care Provider: Marlyn Chief Complaint: GIB/melena, anemia, hgb 6.1, hospital acquired pneumonia Subjective: No new changes (No GI bleeding. Tolerating TFs. WBC still elevated at 18-19 range despite change in antibiotics.) Review of Systems 10-point ROS is otherwise unremarkable General: Weakness, Malaise Physical Examination - Vital Signs Temperature: 97.9 F Blood Pressure: 104/56 Pulse: 96 Respirations: 23 Pulse Ox (%): 94 - Physical Exam General: Alert, In no apparent distress, Cooperative HEENT: Atraumatic, Normocephalic, PERRLA, EOMI Neck: Supple Respiratory: Diminished Cardiovascular: Normal pulses Gastrointestinal: Soft and benign Assessment And Plan - Current Problems (Diagnosis) (1) Melena Current Visit: Yes Status: Acute Comment: Improved. (2) Duodenal ulcer Current Visit: Yes Status: Acute (3) Protein calorie malnutrition Current Visit: Yes Status: Acute (4) Anemia Current Visit: Yes Status: Acute Qualifiers: Iron deficiency anemia type: other iron deficiency (5) Pneumonia Current Visit: Yes Status: Acute Qualifiers: Pneumonia type: due to unspecified organism Laterality: left Lung location: lower lobe of lung Qualified Code(s): J18.9 - Pneumonia, unspecified organism (6) Upper GI bleed Current Visit: Yes Status: Acute Comment: Improved. (7) Acute renal failure Current Visit: No Status: Acute Comment: Improved. Qualifiers: Acute renal failure type: unspecified Qualified Code(s): N17.9 - Acute kidney failure, unspecified (8) Shock Current Visit: No Status: Acute Comment: Improved, off Levophed today. (9) Hypernatremia Current Visit: No Status: Acute - Plan REC: 1) continue PPI therapy 2) continue antibiotics 3) continue TFs with water boluses 4) await gastrin level 5) check CXR 6) pulmonary toilet / respiratory therapy Physician Review: Patient Assessed, Agree with Above Assessment and Plan Physician Review Additional Text: #ARF - creatinine is now improved to 1.25 on last check. we will continue routine monitoring while admitted. - continue to optimize BP - keep MAP > 65mmhg. - C/W gentle IVF administration. - likely due to ATN and pre-renal issues from renal hypoperfusion # Hypotension/septic shock- now off levophed. we will continue to monitor. # Hypernatremia - Resolved. Sodium is now normal at 142. we will continue D5W at reduced dose of 40ml/hr. we will follow sodium level closely. # Met Acidosis - resolved. # Anemia- Hb is stable at 8.2 g/dL. we will continue to monitor hb. # Pneumonia - on empiric abx. #UTI-urine culture grew ESBL Proteus mirabilis. Antibiotics on board.
--- NOTE | 2020-10-16 14:22 | P.PN ---
Subjective Date of Service: 10/16/20 Primary Care Provider: Marlyn Chief Complaint: GIB/melena, anemia, hgb 6.1, hospital acquired pneumonia Subjective: No new changes, Improving Physical Examination - Vital Signs Temperature: 97.9 F Blood Pressure: 104/56 Pulse: 96 Respirations: 23 Pulse Ox (%): 94 - Physical Exam General: Alert, In no apparent distress, Cooperative HEENT: Atraumatic, Normocephalic Neck: Supple Respiratory: Clear to auscultation bilaterally Cardiovascular: No edema, Regular rate/rhythm, Normal S1 S2 Gastrointestinal: Normal bowel sounds Neurological: Normal speech, Cranial nerves 3-12 intact Assessment And Plan Physician Review: Patient Assessed, Agree with Above Assessment and Plan Physician Review Additional Text: #ARF - creatinine is now improved to 1.0 today. we will continue routine monitoring while admitted. - continue to optimize BP - keep MAP > 65mmhg. - C/W gentle IVF administration. - likely due to ATN and pre-renal issues from renal hypoperfusion # Hypotension/septic shock- reesolved. we will continue to monitor. # Hypernatremia - Resolved. Sodium is now stable at 139. we will continue D5W at reduced dose of 40ml/hr. we will follow sodium level closely. # Met Acidosis - resolved. # Anemia- Hb is stable at 8.2 g/dL. we will continue to monitor hb. # Pneumonia - on empiric abx. #UTI-urine culture grew ESBL Proteus mirabilis. Antibiotics on board.
--- NOTE | 2020-10-16 15:31 | P.PN ---
Subjective Date of Service: 10/16/20 Primary Care Provider: Marlyn Chief Complaint: GIB/melena, anemia, hgb 6.1, hospital acquired pneumonia Subjective: No new changes Review of Systems 10-point ROS is otherwise unremarkable Physical Examination - Vital Signs Temperature: 97.9 F Blood Pressure: 104/56 Pulse: 96 Respirations: 23 Pulse Ox (%): 94 - Physical Exam General: Alert, In no apparent distress HEENT: Atraumatic, PERRLA, EOMI Neck: Supple, JVD not distended Respiratory: Clear to auscultation bilaterally, Normal air movement Cardiovascular: Regular rate/rhythm, Normal S1 S2 Gastrointestinal: Normal bowel sounds, No tenderness Musculoskeletal: No tenderness Integumentary: No rashes Neurological: Normal speech, Normal tone, Normal affect Lymphatics: No axilla or inguinal lymphadenopathy Assessment & Plan - Problems (Diagnosis) (1) Pneumonia Current Visit: Yes Status: Acute Plan: Will give him aggressive fluids. Admit the patient to the unit. Start him on vancomycin and levaquin. Have tried calling his brother and POA. He was a DNR on the last visit. Will keep him a DNR 10/15 will switch him to oral medications. Start working with PT. Qualifiers: Pneumonia type: due to unspecified organism Laterality: left Lung location: lower lobe of lung Qualified Code(s): J18.9 - Pneumonia, unspecified organism (2) Anemia Current Visit: Yes Status: Acute Plan: Will transfuse till above 7. Will check a guaic. His absolute reticulocyte count seems to indicate bone marrow failure. Will keep supporting him. 10/10 has a duodenal ulcer. Possible andra Has not required another transfusion. Qualifiers: Iron deficiency anemia type: other iron deficiency (3) Acute on chronic renal failure Current Visit: No Status: Resolved Plan: consult neprhology. I have spoken to him. Most likely an acute renal failure secondary to the hypotension. Will see if he recovers with aggressive fluid treatment. 10/09 creatine continues to improve. Nephrology changed him to D5W for his fluids. Will continue to follow his creatine Hopefully we can get him off the levophed. Qualifiers: Chronic kidney disease stage: stage 2 (mild) (4) Dysphagia Current Visit: No Status: Acute Plan: He has a peg tube. However has been tolerating oral feeding. We can restart his tube feeding 10/08 He is doing better. Will start him on the Nepro. He was on 1 can of jevity qid per the last vists note. Will start him on a half can of nephro at this time. Start him on D5 1/2 N as he was getting hypoglycemic. Qualifiers: Dysphagia type: unspecified Qualified Code(s): R13.10 - Dysphagia, unspecified (5) HTN (hypertension) Current Visit: No Status: Acute Plan: Hold his htn meds for now Qualifiers: Hypertension type: essential hypertension Qualified Code(s): I10 - Essential (primary) hypertension (6) Cerebral palsy Current Visit: No Status: Acute Plan: Patient is wheelchair bound Will keep him a fall risk Qualifiers: Cerebral palsy type: spastic diplegic Qualified Code(s): G80.1 - Spastic diplegic cerebral palsy (7) Upper GI bleed Current Visit: Yes Status: Acute Plan: have consulted Dr. Bañuelos who is his gi for the Peg tube placement. monitor his blood counts and transfuse if he falls below a hb of 7 (8) UTI (urinary tract infection) Current Visit: Yes Status: Acute Plan: proteus moody in the urine. Will switch him to ceftazidine from levaquin Qualifiers: Urinary tract infection type: acute cystitis Physician Review: Patient Assessed, Agree with Above Assessment and Plan Physician Review Additional Text: #ARF - creatinine is now improved to 1.0 today. we will continue routine monitoring while admitted. - continue to optimize BP - keep MAP > 65mmhg. - C/W gentle IVF administration. - likely due to ATN and pre-renal issues from renal hypoperfusion # Hypotension/septic shock- reesolved. we will continue to monitor. # Hypernatremia - Resolved. Sodium is now stable at 139. we will continue D5W at reduced dose of 40ml/hr. we will follow sodium level closely. # Met Acidosis - resolved. # Anemia- Hb is stable at 8.2 g/dL. we will continue to monitor hb. # Pneumonia - on empiric abx. #UTI-urine culture grew ESBL Proteus mirabilis. Antibiotics on board.
[2020-10-17] MEDS: AMOX/K CLAV 875 MG TAB PO SCH (08:07)
[2020-10-17] MEDS: PANTOPRAZOLE 40 MG INJ IVP SCH (08:07)
[2020-10-17] MEDS: FLUCONAZOLE 100 MG TAB PO SCH (08:07)
[2020-10-17] MEDS: DOXYCYCLINE 100 MG CAP PO SCH (08:07)
[2020-10-17] MEDS: NEPRO 1,000 ML BOT FT SCH ×3 (08:08→16:40)
[2020-10-17 08:13] VITALS: O2SAT 95
--- NOTE | 2020-10-17 09:32 | P.PN ---
Subjective Date of Service: 10/17/20 Primary Care Provider: Marlyn Chief Complaint: GIB/melena, anemia, hgb 6.1, hospital acquired pneumonia Subjective: No new changes Physical Examination - Vital Signs Temperature: 98.8 F Blood Pressure: 102/65 Pulse: 84 Respirations: 18 Pulse Ox (%): 93 - Physical Exam General: Alert, In no apparent distress, Cooperative HEENT: Atraumatic, Normocephalic Neck: Supple Respiratory: Clear to auscultation bilaterally Cardiovascular: No edema, Regular rate/rhythm, Normal S1 S2 Gastrointestinal: Normal bowel sounds Neurological: Normal speech, Cranial nerves 3-12 intact Assessment And Plan Physician Review: Patient Assessed, Agree with Above Assessment and Plan Physician Review Additional Text: #ARF - creatinine is now improved to 1.0. we will continue routine monitoring while admitted. - continue to optimize BP - keep MAP > 65mmhg. - C/W gentle IVF administration. - likely due to ATN and pre-renal issues from renal hypoperfusion # Hypotension/septic shock- reesolved. we will continue to monitor. # Hypernatremia - Resolved. Sodium is now stable at 139. we will continue D5W at reduced dose of 40ml/hr. we will follow sodium level closely. # Met Acidosis - resolved. # Anemia- Hb is stable at 8.2 g/dL. we will continue to monitor hb. # Pneumonia - on empiric abx. #UTI-urine culture grew ESBL Proteus mirabilis. Antibiotics on board.
--- NOTE | 2020-10-17 10:06 | P.DS ---
Admission Date: 10/07/20 Discharge Date: 10/17/20 Primary Care Provider: Marlyn Disposition: TRANSFER TO JAIL Discharge Condition: GOOD Reason for Admission: GIB/melena, anemia, hgb 6.1, hospital acquired pneumonia - Problems (1) Pneumonia Current Visit: Yes Status: Acute Qualifiers: Pneumonia type: due to unspecified organism Laterality: left Lung location: lower lobe of lung Qualified Code(s): J18.9 - Pneumonia, unspecified organism (2) Anemia Current Visit: Yes Status: Acute Qualifiers: Iron deficiency anemia type: other iron deficiency (3) Acute on chronic renal failure Current Visit: No Status: Resolved Qualifiers: Chronic kidney disease stage: stage 2 (mild) (4) Dysphagia Current Visit: No Status: Acute Qualifiers: Dysphagia type: unspecified Qualified Code(s): R13.10 - Dysphagia, unspecified (5) HTN (hypertension) Current Visit: No Status: Acute Qualifiers: Hypertension type: essential hypertension Qualified Code(s): I10 - Essential (primary) hypertension (6) Cerebral palsy Current Visit: No Status: Acute Qualifiers: Cerebral palsy type: spastic diplegic Qualified Code(s): G80.1 - Spastic diplegic cerebral palsy (7) Upper GI bleed Current Visit: Yes Status: Acute (8) UTI (urinary tract infection) Current Visit: Yes Status: Acute Qualifiers: Urinary tract infection type: acute cystitis Brief History of Present Illness: Patient of mine at [facility]. He has a history of cerebral palsy, htn, hyperlipidemia. CKD with a baseline creatine of 1.3. The patient was sent to the ER with a bp of 68/40 and a spO2 of 78. During his work up he was found to have an left sided pneumonia. He is still hypotensive after a lt of n saline. The second lt is going in. He has a creatine of 6. Which is greatly elevated from his baseline. The patient is able to respond yes and no to questions. However he is very weak. His curb 65 score is 3. Indicating a 17% mortality in the next 30 days. Hospital Course: Patient came to the hospital with septic shock requiring pressors. He was found to have a Proteus pneumonia Was sensitive to augmentin. He had a acute on chronic renal failure. Was seen by nephrology. He had some anemia. Was scoped by Dr. Bañuelos. However he did not have an active bleed. (did have guiac positive stools). The was some possible candiasis on the egd. He evenually was weaned off pressors. We restarted his tube feeding. Was seen by PT. Will transfer him back to [place]. Will need to follow up on his cbc, cmp. Continue feedings on the patient. He had a severe weight loss. during his covid (approx 30lbs) Vital Signs/Physical Exam: Temp Pulse Resp BP Pulse Ox 98.8 F 84 18 102/65 93 10/17/20 09:31 10/17/20 09:31 10/17/20 09:31 10/17/20 09:31 10/17/20 09:31 General: Alert, In no apparent distress HEENT: Atraumatic, PERRLA, EOMI Neck: Supple, JVD not distended Respiratory: Clear to auscultation bilaterally, Normal air movement Cardiovascular: Regular rate/rhythm, Normal S1 S2 Gastrointestinal: Normal bowel sounds, No tenderness Musculoskeletal: No tenderness Integumentary: No rashes Neurological: Normal speech, Normal tone, Normal affect Lymphatics: No axilla or inguinal lymphadenopathy Laboratory Data at Discharge: WBC 19.3 K/uL (4.3-10.9) H 10/16/20 05:25 Hgb 8.2 g/dL (13.6-17.9) L 10/16/20 05:25 Hct 25.4 % (39.6-49.0) L 10/16/20 05:25 Plt Count 321 K/uL (152-406) D 10/16/20 05:25 PT 15.6 SECONDS (9.5-12.5) H 10/10/20 05:45 INR 1.33 10/10/20 05:45 APTT 28.4 SECONDS (24.3-36.9) 10/10/20 05:45 Sodium 139 mmol/L (136-145) 10/16/20 05:25 Potassium 4.3 mmol/L (3.5-5.1) 10/16/20 05:25 BUN 24 mg/dL (7-18) H 10/16/20 05:25 Creatinine 1.06 mg/dL (0.55-1.3) 10/16/20 05:25 Glucose 86 mg/dL (74-106) 10/16/20 05:25 Phosphorus 3.6 mg/dL (2.5-4.9) 10/16/20 05:25 Magnesium 1.7 mg/dL (1.8-2.4) L D 10/16/20 05:25 Total Bilirubin 0.3 mg/dL (0.2-1.0) 10/14/20 06:35 AST 45 U/L (15-37) H 10/14/20 06:35 ALT 55 U/L (12-78) 10/14/20 06:35 Alkaline Phosphatase 227 U/L (45-117) H 10/14/20 06:35 Home Medications: Acetaminophen [Tylenol] 325 mg PO Q6HP PRN 09/02/20 Ascorbic Acid [C-500] 500 mg PO BID 09/02/20 Aspirin Chewable [Aspirin Chewable*] 81 mg PO DAILY 09/02/20 Docusate [Colace Cap*] 100 mg PO DAILY 09/02/20 Lidocaine 4% Patch [Lidoderm 5% Patch*] 1 patch TOP DAILY 09/02/20 Multivitamin [Multiple Vitamins] 1 tab PO DAILY 09/02/20 Ondansetron [Zofran (Odt)*] 4 mg PO Q6HP PRN 09/02/20 Simvastatin 20 mg PO DAILY 09/02/20 traMADol HCL [Ultram*] 50 mg PO Q8HP PRN 09/02/20 Loratadine [Claritin] 10 mg PO DAILY 09/15/20 Apixaban [Eliquis] 2.5 mg PO BID 09/16/20 Sertraline [Zoloft] 50 mg PO DAILY 10/08/20 Amox/Clavulanate [Augmentin 875-125 Tab*] 875 mg PO BID 6 Days #12 tab 10/17/20 Doxycycline Monohydrate 100 mg PO BID 6 Days #12 capsule 10/17/20 Fluconazole 100 mg PO DAILY 6 Days #6 tablet 10/17/20 New Medications: Amox/Clavulanate [Augmentin 875-125 Tab*] 875 mg PO BID 6 Days #12 tab Doxycycline Monohydrate 100 mg PO BID 6 Days #12 capsule Fluconazole 100 mg PO DAILY 6 Days #6 tablet Diet: peg feeding Activity: Ad angela Followup: Royer Cline MD [Primary Care Provider] - Time spent managing pt's care (in minutes): 30
[2020-10-17 16:44] VITALS: BP 92/52; TEMP 97
== END 2020-10-17 18:29 | DRG 871 ==
LOC: SUPCPDRO 11:36 → ER 11:36 → ERHOLD 15:31 → 2ND 10-13 18:20
PROVIDERS: ADMIT Internal Medicine; ATTEND Internal Medicine
PROC: 0DJ08ZZ Inspection of Upper Intestinal Tract, Via Natural or Artificial Opening Endoscopic (ICD-10-PCS; principal; 2020-10-09 19:00)
DX: A41.9 Sepsis, unspecified organism (principal); N17.0 Acute kidney failure with tubular necrosis; R65.21 Severe sepsis with septic shock; K26.4 Chronic or unspecified duodenal ulcer with hemorrhage; J15.6 Pneumonia due to other Gram-negative bacteria; E44.0 Moderate protein-calorie malnutrition; Z68.1 Body mass index [BMI] 19.9 or less, adult; G80.1 Spastic diplegic cerebral palsy; E87.0 Hyperosmolality and hypernatremia; E87.2 Acidosis; N30.00 Acute cystitis without hematuria; Z16.12 Extended spectrum beta lactamase (ESBL) resistance; I12.9 Hypertensive chronic kidney disease with stage 1 through stage 4 chronic kidney disease, or unspecified chronic kidney disease; N18.2 Chronic kidney disease, stage 2 (mild); D50.0 Iron deficiency anemia secondary to blood loss (chronic); L89.621 Pressure ulcer of left heel, stage 1; L89.611 Pressure ulcer of right heel, stage 1; L89.321 Pressure ulcer of left buttock, stage 1; L89.311 Pressure ulcer of right buttock, stage 1; K21.9 Gastro-esophageal reflux disease without esophagitis; K44.9 Diaphragmatic hernia without obstruction or gangrene; F03.90 Unspecified dementia, unspecified severity, without behavioral disturbance, psychotic disturbance, mood disturbance, and anxiety; E78.5 Hyperlipidemia, unspecified; B37.9 Candidiasis, unspecified; B96.4 Proteus (mirabilis) (morganii) as the cause of diseases classified elsewhere; R13.10 Dysphagia, unspecified; Y95 Nosocomial condition; Z79.899 Other long term (current) drug therapy; Z79.82 Long term (current) use of aspirin; Z79.01 Long term (current) use of anticoagulants; Z66 Do not resuscitate; Z20.828 Contact with and (suspected) exposure to other viral communicable diseases
CPT/HCPCS: 36415; 36430; 71045; 80048; 80053; 80076; 82274; 82728; 82941; 82947; 83540; 83605; 83735; 83880; 84100; 84134; 84145; 84466; 84484; 85014; 85018; 85025; 85044; 85049; 85610; 85730; 86850; 86900; 86901; 87040; 87070; 87077; 87086; 87088; 87186; 87205; 93005; 96361; 96365; 96367; 96375; 97110; 97161; 97530; 99285; C9113; J0171; J0295; J0696; J0713; J1450; J2597; J2704; J7030; J7040; J7042; J7060; J7120; J7799; P9016; P9035; U0003

== ENCOUNTER 2020-11-03 13:21 | Inpatient (IN) | payer OTHER ==
[2020-11-03] MEDS ORDERED: dexAMETHasone 10 MG/ML VIAL ONE (13:48)
[2020-11-03] MEDS ORDERED: NA CHLORIDE 0.9% 1,000 ML ONE ×2 (13:48→17:28)
[2020-11-03] MEDS ORDERED: IPRATROPIUM BROM 0.5MG/2.5ML ONE (13:48)
[2020-11-03] MEDS ORDERED: ALBUTEROL 2.5 MG/3 ML NEB SOL ONE (13:48)
--- NOTE | 2020-11-03 14:06 | RAD REPORT ---
EXAM DESCRIPTION: RAD - Chest Single View - 11/03/2020 2:01 pm CLINICAL HISTORY: SOB Chest pain. COMPARISON: Chest Single View dated 10/11/2020; Chest Single View dated 10/07/2020; Chest Single View dated 09/15/2020; Chest Single View dated 09/01/2020 FINDINGS: Portable technique limits examination quality. Asymmetric pulmonary opacities are noted, greater on the left, likely representing interstitial pneum onia or asymmetric pulmonary edema. The heart is normal in size. No displaced fractures.
[2020-11-03 15:08] LABS: Basophils % 0.1 % (0-1.3); Lymphocytes % 9.8 % (15.3-44.8); MPV 10.1 fL (7.6-11.3); RBC Red Blood Cell Count 3.82 M/uL (4.33-5.43)
[2020-11-03 15:10] LABS: Protime INR 1.37
[2020-11-03 15:39] LABS: ALT/SGPT 27 U/L (12-78); AST/SGOT 39 U/L (15-37); Albumin 2.1 g/dL (3.4-5.0); Alkaline Phosphatase 144 U/L (45-117); Amylase 121 U/L (25-115); BUN Blood Urea Nitrogen 120 mg/dL (7-18); Bicarbonate 27 mmol/L (21-32); Bilirubin Direct < 0.1 mg/dL (0-0.2); Bilirubin Total 0.3 mg/dL (0.2-1.0); CKMB Creatine Kinase MB 1.6 ng/mL (0.3-3.6); Creatine Phosphokinase 73 U/L (39-308); Ferritin 352.5 ng/mL (26-388); Glucose Level 121 mg/dL (74-106); Lipase 301 U/L (73-393); Potassium 3.9 mmol/L (3.5-5.1); Protein, Total 7.3 g/dL (6.4-8.2); Sodium Level 157 mmol/L (136-145); Troponin (Emerg Dept Use Only) < 0.02 ng/mL (0.0-0.045)
[2020-11-03 16:02] LABS: Blood Morphology Comment NOT SEEN (NOT SEEN); Platelet Estimate ADEQ
[2020-11-03] MEDS ORDERED: Levofloxacin 750mg IV 750 MG/150 ML BAG IV ONE (16:04)
[2020-11-03] MEDS ORDERED: CEFEPIME/SWI 1gm 20 ML ONE (16:04)
[2020-11-03] MEDS ORDERED: NA CHLORIDE 0.9% 500 ML ONE (17:28)
[2020-11-03] MEDS ORDERED: Pharmacy Consult 1 EA XX PRN (17:32)
--- NOTE | 2020-11-03 17:32 | ER ---
Nurse's Notes [facility] Name: Gabriel Krishnamurthy Age: 65 yrs Sex: Male : 1955 Arrival Date: 11/03/2020 Time: 13:24 Bed 4 Private MD: Diagnosis: Acute respiratory distress syndrome;Pneumonia, unspecified organism;Tachypnea, not elsewhere classified;Dehydration;Acute kidney failure Presentation: 11/03 13:24 Chief complaint: EMS states: tachypnea and SOB today. EMS reports RR 41 upon arrival aa5 and O2 sat 86% via 4 L NC, BP was 78/55. Pt's baseline is A\T\O x 2. EMS reports pt had COVID-19 2 months ago and Pneumonia approximately 1 month ago. 13:24 Coronavirus screen: cough unrelated to allergies, shortness of breath. Ebola Screen: aa5 Patient negative for fever greater than or equal to 101.5 degrees Fahrenheit, and additional compatible Ebola Virus Disease symptoms. Initial Sepsis Screen: Does the patient meet any 2 criteria? RR > 20 per min. Systolic BP < 90 mmHg. HR > 90 bpm. Does the patient have a suspected source of infection? Yes: Productive cough/pneumonia. Risk Assessment: Do you want to hurt yourself or someone else? Unable to obtain. Onset of symptoms was November 03, 2020. 13:24 Acuity: BRENDAN 1 aa5 13:24 Method Of Arrival: EMS: [facility] aa 13:24 Risk Assessment: Do you want to hurt yourself or someone else? Patient reports no sv desire to harm self or others. Onset of symptoms was November 03, 2020. 13:24 Method Of Arrival: EMS: [facility] sv 13:24 Acuity: BRENDAN 1 sv 13:24 Transition of care: patient was received from another setting of care (long-term care [facility]), Jet-ao-qlaknjee DNR. 13:28 Note [facility] staff called earlier and gave report of pt being sent here for sv respiratory distress today. BP 138/53 HR-41 RR-41 T-97.4 93% on 2L NC. Pt is A\T\O x 2-3 with intermittent confusion normally. Recently had an US abd done, results to be sent here. COVID+ 4 months ago. Historical: - Allergies: 13:29 No Known Allergies; aa5 - PMHx: 13:29 Cerebral Palsy; GERD; Hyperlipidemia; Hypertension; Dysphagia; aa5 - Immunization history:: Adult Immunizations unknown. - Social history:: Smoking status: unknown. Screenin:30 Abuse screen: No signs of abuse noted. Nutritional screening: PEG tube noted . aa5 Tuberculosis screening: No symptoms or risk factors identified. Fall Risk Secondary diagnosis (15 points) IV access (20 points). Mental Status- Overestimates/Forgets Limitations (15 pts.). Total Sharma Fall Scale indicates High Risk Score (45 or more points). Fall prevention measures have been instituted. Side Rails Up X 2 Placed Close to Nursing Station. Assessment: 13:25 Reassessment: RT paged to place BIPAP per Jose Alejandro LUKE. sv 13:25 General: Appears uncomfortable, Behavior is calm, cooperative. Pain: Denies pain. aa5 Neuro: Level of Consciousness is awake, confused, Oriented to person, Pt unable to follow commands. . Cardiovascular: Heart tones S1 S2 present Edema is absent. Rhythm is sinus tachycardia. Respiratory: Reports shortness of breath cough Airway is patent Respiratory effort is even, labored, Respiratory pattern is tachypnea Breath sounds are diminished bilaterally. GI: Abdomen is round PEG tube in place, Site clean. : Brief noted. EENT: Oral mucosa is dry. Derm: Skin is pink, warm \T\ dry. Musculoskeletal: limited mobility noted, hands noted to be contracted. 13:34 Reassessment: Ruth RT at bedside to place BIPAP. sv 14:00 Reassessment: emergency department technician at bedside attempting blood draw. . aa5 14:00 Reassessment: Pt tolerating Bi-PAP well, tachypnea continued. . aa5 14:00 Neuro: Level of Consciousness is awake, confused, Oriented to person. Derm: Skin is aa5 pink, warm \T\ dry. 14:30 Reassessment: emergency department technician unable to collect blood, echo tech to beside to attempt blood aa5 draw, pt is a hard stick. . 16:00 Reassessment: Pt cleaned of very small amount of stool, no urine noted. Pt repositioned aa5 in bed. On Bi-pap. A\T\O x person, confused and cooperative, remains unable to follow commands. . 17:30 Reassessment: Pt resting in bed with eyes closed, tolerating Bi-PAP well. Pt easy to aa5 awaken to verbal stimuli. . Vital Signs: 13:25 BP 74 / 64; Pulse 121; Resp 42; sv 13:30 Weight 49 kg (R); aa5 13:30 Temp 98.9(A); aa5 14:20 BP 85 / 50; Pulse 114; Resp 44 S; Pulse Ox 92% on BiPAP; aa5 14:40 BP 98 / 65; Pulse 117; Resp 38 S; Pulse Ox 92% on BiPAP; aa5 15:00 BP 83 / 62; Pulse 116; Resp 36 S; Pulse Ox 94% on BiPAP; aa5 15:20 BP 73 / 57; Pulse 115; Resp 32 S; Temp 98.0(A); Pulse Ox 93% on BiPAP; aa5 15:20 aa5 15:40 BP 91 / 68; Pulse 112; Resp 30 S; Pulse Ox 91% on BiPAP; aa5 15:57 BP 89 / 72; Pulse 113; Resp 33; Pulse Ox 94% on CPAP; jl7 16:20 BP 86 / 76; Pulse 113; Resp 34 S; Pulse Ox 90% on BiPAP; aa5 17:00 BP 107 / 79; Pulse 109; Resp 30 S; Pulse Ox 90% on BiPAP; aa5 18:00 BP 83 / 61; Pulse 101; Resp 28 S; Temp 98.4(A); Pulse Ox 91% on BiPAP; aa5 18:40 BP 94 / 60; Pulse 103; Resp 28 S; Pulse Ox 91% on BiPAP; aa5 20:33 BP 90 / 62; Pulse 103; Resp 30; Temp 98; Pulse Ox 94% ; rv 15:20 ASSOCIATE DIRECTOR OF DEVELOPMENT aware of low BP readings. aa5 ED Course: 13:24 Patient arrived in ED. sv 13:24 Arm band placed on. aa5 13:25 Meliza Stover RN is Primary Nurse. aa5 13:25 Jose Alejandro Porter NP is PHCP. pm1 13:25 Colin Gutierrez MD is Attending Physician. pm1 13:27 Triage completed. aa5 13:29 Patient has correct armband on for positive identification. Bed in low position. Call sv light in reach. Side rails up X2. media monitor on. Pulse ox on. NIBP on. 13:29 Maintain EMS IV. Dressing intact. Gauge \T\ site: 22G L AC. sv 13:35 Missed attempt(s): 22 gauge in right antecubital area. Bleeding controlled, band aid dh3 applied, catheter tip intact. 13:40 First set of blood cultures drawn by me. Inserted saline lock: 22 gauge in right dh3 forearm, using aseptic technique. Blood collected. 13:59 Chest Single View XRAY In Process Unspecified. EDMS 14:50 Initial lab(s) drawn, by me, sent to lab. Inserted saline lock: 24 gauge in left dh3 forearm, using aseptic technique. Blood collected. 15:00 Unable to collect 2nd set of blood cultures due to pt being a hard stick, ASSOCIATE DIRECTOR OF DEVELOPMENT was aa5 notified. 15:34 Notified Nurse Practitioner and/or Physician Supervisor Prepress of a critical lab result(s), jl7 lactate 7.4. 15:49 IV discontinued, 22G to L AC dc'd, swelling noted to site after flushing with NS. aa5 15:50 EKG done, by ED staff, reviewed by Jose Alejandro Porter NP. dh4 17:29 Ben Rowe MD is Hospitalizing Provider. pm1 17:30 Straight cath inserted, using sterile technique, 14 Fr. Specimen obtained. Returned dh3 clear yellow urine. Patient tolerated well. 18:07 lactate sepsis drawn and sent by ma. dh3 19:05 Report given to ARMEN Newell and ARMEN Gifford. aa5 19:57 Primary Nurse role handed off by Meliza Stover RN mw2 20:10 Reece Shrestha RN is Primary Nurse. rv 20:32 No provider procedures requiring assistance completed. IV is patent, with fluids rv infusing freely, Patient admitted, IV remains in place. Administered Medications: 13:30 Drug: Decadron - Dexamethasone 10 mg Route: IVP; Site: left antecubital; aa5 17:50 Follow up: Response: No adverse reaction jl7 13:32 Drug: NS 0.9% (30 ml/kg) 30 ml/kg Route: IV; Rate: bolus; Site: left antecubital; aa5 14:50 Follow up: IV Status: Completed infusion; IV Intake: 1500ml aa5 13:40 Drug: Albuterol - atroVENT (3:1) (2.5 mg - 0.5 mg) 3 ml Route: Nebulizer; aa5 17:50 Follow up: Response: No adverse reaction 7 15:45 Drug: Cefepime 2 grams Route: IVPB; Rate: 200 ml/hr; Infused Over: 30 mins; Site: left jl7 wrist; 15:56 Follow up: Response: No adverse reaction; RASS: Alert and Calm (0); IV Status: jl7 Completed infusion; IV Intake: 40ml 15:57 Drug: LevaQUIN 750 mg Volume: 150 ml; Route: IVPB; Infused Over: 90 mins; Site: left jl7 wrist; 17:30 Follow up: Response: No adverse reaction; IV Status: Completed infusion 7 17:30 Follow up: Response: No adverse reaction; IV Status: Completed infusion 5 17:49 Drug: NS 0.9% 500 ml Route: IV; Rate: bolus; Site: right forearm; jl7 18:45 Follow up: IV Status: Completed infusion; IV Intake: 500ml aa 17:49 Drug: NS 0.9% 1000 ml Route: IV; Rate: 100 ml/hr; Site: right forearm; [facility] 20:16 Follow up: Response: No adverse reaction; IV Status: Completed infusion 20:17 Drug: NS 0.9% 500 ml {Note: Ordered by peña Johnson, repeat Lactate 8.3.} Route: IV; Rate: bolus; Site: right forearm; Intake: 14:50 IV: 1500ml; Total: 1500ml. aa5 15:56 IV: 40ml; Total: 1540ml. jl7 18:45 IV: 500ml; Total: 2040ml. aa5 Outcome: 17:31 Decision to Hospitalize by Provider. pm1 20:32 Admitted to Med/surg accompanied by tech, via stretcher, room 218, Report called to rv MARSHALL AYERS 20:32 Condition: good 20:32 Instructed on the need for admit. 20:33 Patient left the ED. rv Signatures: Dispatcher [employer] EDJamila Appiah RN RN sv Calderon, Audri, RN RN aa5 Jose Alejandro Porter, ASSOCIATE DIRECTOR OF DEVELOPMENT ASSOCIATE DIRECTOR OF DEVELOPMENT pm1 Reji South RN RN jl7 Jennyfer Lynch 3 Ирина Leon Alesia Foster 2 Reece Shrestha RN RN rv Huhn, Donald dh4 Corrections: (The following items were deleted from the chart) 13:28 13:24 Chief complaint: EMS states: called out for respiratory distress, SBP 70s sv HR-140s, 22G L AC started and IV fluids started. sv 15:49 13:22 NS 0.9% (30 ml/kg) 30 ml/kg IV at bolus in left antecubital aa5 aa5 11/04 07:33 12 17:30 Reassessment: Pt resting in bed with eyes closed, tolerating Bi-PAP well. . aa5 aa5
--- NOTE | 2020-11-03 17:32 | EDPHYS ---
Physician Documentation [facility] Name: Gabriel Krishnamurthy Age: 65 yrs Sex: Male : 1955 Arrival Date: 11/03/2020 Time: 13:24 Bed 4 Private MD: ED Physician Colin Gutierrez HPI: 11/03 13:29 This 65 yrs old Male presents to ER via EMS with complaints of Respiratory pm1 Distress. 13:29 The patient has shortness of breath at rest. Onset: The symptoms/episode began/occurred pm1 yesterday. Duration: The symptoms are continuous. The patient's shortness of breath has no apparent modifying factors. Associated signs and symptoms: The patient has no apparent associated signs or symptoms. long term patient arrived by EMS with complaints of shortness of breath and respiratory distress. History obtained from EMS as patient with history of CP and communication deficit. Patient was diagnosed with COVID 2 months ago and had pneumonia a few weeks later. Historical: - Allergies: 13:29 No Known Allergies; aa5 - PMHx: 13:29 Cerebral Palsy; GERD; Hyperlipidemia; Hypertension; Dysphagia; aa5 - Immunization history:: Adult Immunizations unknown. - Social history:: Smoking status: unknown. ROS: 13:29 Respiratory: Positive for shortness of breath. pm1 13:29 Unable to obtain ROS due to Baseline cerebral palsy and difficulty with communication per senior care documentation. Information obtained from EMS. Exam: 13:29 Head/Face: Normocephalic, atraumatic. pm1 13:29 Constitutional: The patient appears frail, in obvious distress, obviously ill. 13:29 Cardiovascular: Rate: tachycardic, Rhythm: regular, Pulses: no pulse deficits are appreciated, Edema: is not appreciated. 13:29 Respiratory: moderate respiratory distress is noted, Respirations: tachypnea, Breath sounds: wheezing: expiratory is heard diffusely, Respiratory rate: 42 13:29 Abdomen/GI: Inspection: abdomen appears normal, Palpation: abdomen is soft and non-tender, in all quadrants. 13:29 Skin: Appearance: normal except for affected area, tenting present. Vital Signs: 13:25 BP 74 / 64; Pulse 121; Resp 42; sv 13:30 Weight 49 kg (R); aa5 13:30 Temp 98.9(A); aa5 14:20 BP 85 / 50; Pulse 114; Resp 44 S; Pulse Ox 92% on BiPAP; aa5 14:40 BP 98 / 65; Pulse 117; Resp 38 S; Pulse Ox 92% on BiPAP; aa5 15:00 BP 83 / 62; Pulse 116; Resp 36 S; Pulse Ox 94% on BiPAP; aa5 15:20 BP 73 / 57; Pulse 115; Resp 32 S; Temp 98.0(A); Pulse Ox 93% on BiPAP; aa5 15:20 aa5 15:40 BP 91 / 68; Pulse 112; Resp 30 S; Pulse Ox 91% on BiPAP; aa5 15:57 BP 89 / 72; Pulse 113; Resp 33; Pulse Ox 94% on CPAP; jl7 16:20 BP 86 / 76; Pulse 113; Resp 34 S; Pulse Ox 90% on BiPAP; aa5 17:00 BP 107 / 79; Pulse 109; Resp 30 S; Pulse Ox 90% on BiPAP; aa5 18:00 BP 83 / 61; Pulse 101; Resp 28 S; Temp 98.4(A); Pulse Ox 91% on BiPAP; aa5 18:40 BP 94 / 60; Pulse 103; Resp 28 S; Pulse Ox 91% on BiPAP; aa5 20:33 BP 90 / 62; Pulse 103; Resp 30; Temp 98; Pulse Ox 94% ; rv 15:20 DIRECTOR OF CONSERVATION aware of low BP readings. aa5 MDM: 13:28 Patient medically screened. pm1 14:46 ED course: Contacted verónica Wilkesan and informed him that his brother is very pm1 ill with likely pneumonia due to his presentation of tachypnea, senior care resident, and COVID positive test result 2 months ago, and recent pneumonia diagnosis. Informed him that I have given him BiPAP, breathing treatments, antibiotics. My goal is to make him comfortable and address his illness while respecting his DNR. Brother understands and wants to honor his DNR, no intubation, invasive lines, or pressors. 17:16 Physician consultation: Royer Cline would be happy to take care of the pm1 patient if the guardian would like for him to admit him. Patient's guardian, Adrien Krishnamurthy informed Dr. Cline about two days ago that he would like to have another physician care of his brother. Therefore I will contact the guardian to see who he would like for admission. 17:20 ED course: Adrien Krishnamurthy would like to have the hospitalist admit the patient. pm1 17:20 Data reviewed: vital signs. pm1 17:25 Physician consultation: Ben Rowe MD regarding admission, patient's condition, pm1 and will see patient. 17:41 ED course: Updated brother, Adrien Krishnamurthy on admission. Verified with him on his wishes pm1 that no invasive life saving measures will be used - Marshall his DNR. No intubation, central lines or pressors. Adrien Krishnamurthy is fine with keeping his brother comfortable, giving IV fluids and antibiotics for treatment of his pneumonia. 11/03 13:28 Order name: Amylase, Serum; Complete Time: 15:54 pm1 11/03 13:28 Order name: Basic Metabolic Panel; Complete Time: 15:54 pm1 11/03 13:28 Order name: Blood Culture Adult (2) pm1 11/03 13:28 Order name: CBC with Diff; Complete Time: 16:07 pm1 11/03 13:28 Order name: Ckmb; Complete Time: 15:54 pm1 11/03 13:28 Order name: CPK; Complete Time: 15:54 pm1 11/03 13:28 Order name: Lactate; Complete Time: 15:35 pm1 11/03 13:28 Order name: LFT's; Complete Time: 15:54 pm1 11/03 13:28 Order name: Lipase; Complete Time: 15:54 pm1 11/03 13:28 Order name: Procalcitonin; Complete Time: 17:34 pm1 11/03 13:28 Order name: Protime (+inr); Complete Time: 15:28 pm1 11/03 13:28 Order name: Ptt, Activated; Complete Time: 15:28 pm1 11/03 13:28 Order name: Troponin (emerg Dept Use Only); Complete Time: 15:54 pm1 11/03 13:28 Order name: Urine Microscopic Only; Complete Time: 18:57 pm1 11/03 13:28 Order name: Chest Single View XRAY; Complete Time: 14:10 pm1 11/03 13:28 Order name: Ferritin; Complete Time: 15:54 pm1 11/03 13:28 Order name: D-Dimer; Complete Time: 15:28 pm1 11/03 13:28 Order name: CRP; Complete Time: 15:54 pm1 11/03 13:28 Order name: BIPAP pm1 11/03 13:31 Order name: Flu; Complete Time: 17:34 pm1 11/03 13:31 Order name: Strep; Complete Time: 17:34 pm1 11/03 14:02 Order name: Glucose, Ancillary Testing; Complete Time: 14:10 EDMS 11/03 14:02 Order name: Glucose, Ancillary Testing EDMS 11/03 15:13 Order name: CT Chest For PE Angio pm1 11/03 16:00 Order name: Manual Differential; Complete Time: 16:12 EDMS 11/03 17:27 Order name: Throat Culture EDMS 11/03 18:01 Order name: SARS-COV-2 RT PCR; Complete Time: 18:09 EDMS 11/03 18:03 Order name: Urine Dipstick--Ancillary (enter results); Complete Time: 20:31 em1 11/03 19:08 Order name: Lactate Sepsis 2 HR Follow-up; Complete Time: 20:31 EDMS 11/03 13:28 Order name: Accucheck; Complete Time: 13:51 pm1 11/03 13:28 Order name: Cardiac monitoring; Complete Time: 13:51 pm1 11/03 13:28 Order name: EKG - Nurse/Tech; Complete Time: 15:58 pm1 11/03 13:28 Order name: IV Saline Lock - Large Bore; Complete Time: 13:52 pm1 11/03 13:28 Order name: Labs collected and sent; Complete Time: 14:59 pm1 11/03 13:28 Order name: O2 Per Protocol; Complete Time: 13:52 pm1 11/03 13:28 Order name: O2 Sat Monitoring; Complete Time: 13:52 pm1 11/03 13:28 Order name: Urine Dipstick-Ancillary (obtain specimen); Complete Time: 17:53 pm1 11/03 13:31 Order name: Droplet/Contact Precautions; Complete Time: 13:44 pm1 11/03 17:33 Order name: CONS Pharmacy Consult EDTN 11/03 17:34 Order name: CONS Pharmacy Consult EDTN 11/03 18:13 Order name: CONS Physician Consult EDTN Administered Medications: 13:30 Drug: Decadron - Dexamethasone 10 mg Route: IVP; Site: left antecubital; aa5 17:50 Follow up: Response: No adverse reaction [facility] 13:32 Drug: NS 0.9% (30 ml/kg) 30 ml/kg Route: IV; Rate: bolus; Site: left antecubital; 5 14:50 Follow up: IV Status: Completed infusion; IV Intake: 1500ml [facility] 13:40 Drug: Albuterol - atroVENT (3:1) (2.5 mg - 0.5 mg) 3 ml Route: Nebulizer; aa5 17:50 Follow up: Response: No adverse reaction [facility] 15:45 Drug: Cefepime 2 grams Route: IVPB; Rate: 200 ml/hr; Infused Over: 30 mins; Site: left jl7 wrist; 15:56 Follow up: Response: No adverse reaction; RASS: Alert and Calm (0); IV Status: [facility] Completed infusion; IV Intake: 40ml 15:57 Drug: LevaQUIN 750 mg Volume: 150 ml; Route: IVPB; Infused Over: 90 mins; Site: left jl7 wrist; 17:30 Follow up: Response: No adverse reaction; IV Status: Completed infusion [facility] 17:30 Follow up: Response: No adverse reaction; IV Status: Completed infusion [facility] 17:49 Drug: NS 0.9% 500 ml Route: IV; Rate: bolus; Site: right forearm; 7 18:45 Follow up: IV Status: Completed infusion; IV Intake: 500ml [facility] 17:49 Drug: NS 0.9% 1000 ml Route: IV; Rate: 100 ml/hr; Site: right forearm; [facility] 20:16 Follow up: Response: No adverse reaction; IV Status: Completed infusion 20:17 Drug: NS 0.9% 500 ml {Note: Ordered by val Modi Lactate 8.3.} Route: IV; Rate: bolus; Site: right forearm; Disposition: 11/03/20 17:31 Hospitalization ordered by Ben Rowe for Inpatient Admission. Preliminary diagnosis are Pneumonia, unspecified organism, Acute respiratory distress syndrome, Tachypnea, not elsewhere classified, Dehydration, Acute kidney failure. - Bed requested for Telemetry/MedSurg (Inpatient). - Status is Inpatient Admission. rv - Condition is Serious. - Problem is new. - Symptoms have worsened. Addendum: 11/05/2020 11:38 Co-signature as Attending Physician, Colin Gutierrez MD I agree with the assessment and c costa plan of care. Signatures: Dispatcher [employer] EDTN Colin Gutierrez MD MD cha Calderon, Audri, RN RN aa5 Jeremy Johnson, RESEARCH LIBRARIAN-C RESEARCH LIBRARIAN-Cla1 Cadence Cotton, RN RN cg Jose Alejandro Porter, DIRECTOR OF CONSERVATION DIRECTOR OF CONSERVATION pm1 Reji South RN RN jl7 Ирина Leon Ronaldo RN RN rv Corrections: (The following items were deleted from the chart) 11/03 17:04 13:31 CORONAVIRUS+MR.LAB.BRZ ordered. [facility] 17:46 17:41 ED course: Updated brother, Adrien Krishnamurthy on admission. Verified with him on his pm1 wishes that no invasive life saving measures will be used - Marshall his DNR. No intubation, central lines or pressors. pm1 20:04 17:31 Hospitalization Ordered by Ben Rowe MD for Inpatient Admission. cg Preliminary diagnosis is Pneumonia, unspecified organismAcute respiratory distress syndrome; Tachypnea, not elsewhere classified; Dehydration; Acute kidney failure. Bed requested for Telemetry/MedSurg (Inpatient). Status is Inpatient Admission. Condition is Serious. Problem is new. Symptoms have worsened. pm1 20:33 20:04 11/03/2020 17:31 Hospitalization Ordered by Ben Rowe MD for Inpatient rv Admission. Preliminary diagnosis is Pneumonia, unspecified organismAcute respiratory distress syndrome; Tachypnea, not elsewhere classified; Dehydration; Acute kidney failure. Bed requested for Telemetry/MedSurg (Inpatient). Status is Inpatient Admission. Condition is Serious. Problem is new. Symptoms have worsened. cg
[2020-11-03] MEDS ORDERED: MORPHINE 2 MG/ML SYR IV PRN (18:12)
--- NOTE | 2020-11-03 18:26 | P.HP ---
Certification for Inpatient Patient admitted to: Inpatient With expected LOS: >2 Midnights Patient will require the following post-hospital care: None Practitioner: I am a practitioner with admitting privileges, knowledge of patient current condition, hospital course, and medical plan of care. Services: Services provided to patient in accordance with Admission requirements found in Title 42 Section 412.3 of the Code of Federal Regulations Patient History Date of Service: 11/03/20 Primary Care Provider: None, Previously Dr. Cline Reason for admission: Septic shock History of Present Illness: 65-year-old male with history of cerebral palsy, GERD, hyperlipidemia, hypertension, dysphagia with PEG tube placement presents emergency department for respiratory distress. EMS was called to assisted as patient was tachypneic with respiratory rate around 41, hypoxic with saturations around 86% even on 4 L per nasal cannula and hypotensive with blood pressure 78/55. Patient was at his baseline mental status around A/O 1-2. Patient was admitted approximately 4 months ago for Quintero virus. Labs in the emergency department suggest severe dehydration sodium 157, creatinine 3.58, GFR 17 baseline GFR is around 50. Lactic acid 7.4 C-reactive protein 148 pro calcitonin 2.17 white blood cell count 10 with left shift, hemoglobin 11.2 hematocrit 36. Urine dip negative for signs of infection 8% band count chest x-ray reveals asymmetric pulmonary opacities greater on the left. As patient is critically ill. His p ower of senior trial attorney was called and made aware of his condition, currently patient is DNR and family does wish to respect this at this time. Opting for comfort measures and treatment of underlying infection, fluids without central line, vasopressors, intubation. Patient appears cachectic, ill. Will admit for further evaluation and management. Allergies No Known Allergies Allergy (Verified 09/02/20 06:55) Home Medications: Acetaminophen [Tylenol] 325 mg PO Q6HP PRN 09/02/20 Ascorbic Acid [C-500] 500 mg PO BID 09/02/20 Aspirin Chewable [Aspirin Chewable*] 81 mg PO DAILY 09/02/20 Docusate [Colace Cap*] 100 mg PO DAILY 09/02/20 Lidocaine 4% Patch [Lidoderm 5% Patch*] 1 patch TOP DAILY 09/02/20 Multivitamin [Multiple Vitamins] 1 tab PO DAILY 09/02/20 Ondansetron [Zofran (Odt)*] 4 mg PO Q6HP PRN 09/02/20 Simvastatin 20 mg PO DAILY 09/02/20 traMADol HCL [Ultram*] 50 mg PO Q8HP PRN 09/02/20 Loratadine [Claritin] 10 mg PO DAILY 09/15/20 Apixaban [Eliquis] 2.5 mg PO BID 09/16/20 Sertraline [Zoloft] 50 mg PO DAILY 10/08/20 Amox/Clavulanate [Augmentin 875-125 Tab*] 875 mg PO BID 6 Days #12 tab 10/17/20 Doxycycline Monohydrate 100 mg PO BID 6 Days #12 capsule 10/17/20 Fluconazole 100 mg PO DAILY 6 Days #6 tablet 10/17/20 - Past Medical/Surgical History Diabetic: No -: Hypertension -: Hyperlipidemia -: Cerebral palsy -: Major depressive disorder -: malnutrition -: dysphagia -: GERD Past Surgical History: Unable to obtain -: PEG tube placement Psychosocial/ Personal History: Patient lives in assisted - Family History Family History: Reviewed- Non-Contributory - Social History Smoking Status: Unknown if ever smoked Alcohol use: No CD- Drugs: No Caffeine use: No Place of Residence[facility] Review of Systems is unable to be obtained Physical Examination - Physical Exam General: Alert, Oriented x1, Cachectic, Disheveled HEENT: Other (Mucous membranes dry) Neck: No LAD Respiratory: Diminished (Bilaterally) Cardiovascular: No edema, Normal S1 S2, Irregular heart rate/rhythm (Sinus tachycardia) Capillary refill: >2 Seconds Gastrointestinal: Normal bowel sounds, No tenderness, No masses, No rebound, No guarding, Other (PEG tube in place) Musculoskeletal: No contractures, No erythema, No tenderness Integumentary: No significant lesion, No tenderness/swelling, No erythema Neurological: Other (Unable to complete full neurological exam as patient with baseline cerebral palsy and oriented x1. Patient noted to be contracted.), Abnormal tone - Studies Laboratory Data (last 24 hrs) 11/03/20 14:50: PT 16.1 H, INR 1.37, APTT 28.1 11/03/20 14:50: WBC 10.3, Hgb 11.2 L, Hct 36.0 L, Plt Count 324 11/03/20 14:50: Sodium 157 H, Potassium 3.9, BUN 120 H, Creatinine 3.58 H, Glucose 121 H, Total Bilirubin 0.3, AST 39 H, ALT 27, Alkaline Phosphatase 144 H, Amylase 121 H, Lipase 301 Microbiology Data (last 24 hrs): 11/03/20 15:55 Nasopharnyx Influenza Type A Antigen Screen - Final 11/03/20 15:55 Nasopharnyx Influenza Type B Antigen Screen - Final 11/03/20 15:55 Throat Group A Streptococcus Rapid Screen - Final Assessment and Plan - Plan Assessment Severe sepsis secondary to suspected pneumonia Severe dehydration with acute kidney injury complicated by dysphagia with PEG tube placement Hypertension Hyperlipidemia GERD Cerebral palsy Plan Severe sepsis secondary to suspected pneumonia: Patient is DNR, family wishes to respect this. Continue with IV antibiotics, IV fluids. No central line, vasopressors, intubation preferred. Continue with broad-spectrum antibiotics, trend lactate levels, continue IV fluids. DVT prophylaxis heparin 5000 units subcutaneous twice daily. Follow blood and urine cultures. Severe dehydration with acute kidney injury complicated by dysphagia with PEG tube placement: Continue aggressive fluids, nephrology consult in place. Continue with assisted feeds. Hypertension: Hold blood pressure medications, patient hypotensive. Hyperlipidemia: Continue home medications when appropriate. GERD: Obtain and continue home medications, continue with GI prophylaxis Cerebral palsy: Stable Discharge Plan: [facility] Plan to discharge in: 72 Hours - Advance Directives Does patient have a Living Will: No Does patient have a Durable POA for Healthcare: No - Code Status/Comfort Care Code Status Assessed: Yes (DNR) Critical Care: No Time Spent Managing Pts Care (In Minutes): 55
[2020-11-03 18:53] LABS: Urine Amorphous Sediment 2+ /HPF (NONE SEEN); Urine Bacteria <20 /HPF (NONE SEEN); Urine RBC <5 /HPF (NONE SEEN)
[2020-11-03 20:06] LABS: Urine Blood NEGATIVE (NEG); Urine Glucose NEGATIVE (NEG); Urine Protein TRACE (NEG)
[2020-11-03] MEDS ORDERED: VANCOMYCIN 750 MG in NA CHLORIDE 0.9% 150 ML IVPB ONE (20:45)
[2020-11-03] MEDS ORDERED: VANCOMYCIN 1.25 GM in NA CHLORIDE 0.9% 250 ML IVPB ONE (21:00)
[2020-11-03 21:22] VITALS: BMI 18.3
[2020-11-03] MEDS: LORazepam 2 MG/ML VIAL IV PRN (22:11)
[2020-11-03] MEDS: NA CHLORIDE 0.9% 1,000 ML IV SCH (22:11)
[2020-11-03] MEDS: HEPARIN 5000 UNIT/ML 1 ML VIAL SQ SCH (22:12)
--- NOTE | 2020-11-03 23:44 | P.INFCA ---
Sepsis Focused Assessment - Focused Assessment Complete? Sepsis Focused Assessment Completed?: Yes - Sepsis Screen Result Severe Sepsis: Positive - Evaluation Current stage of sepsis: Severe sepsis - Vital Signs Reviewed: Yes Temperature: 98 F Heart rate: 103 Blood Pressure: 90/62 Respiratory Rate: 30 - Examination Date exam was performed: 11/03/20 Time exam was performed: 22:20 Heart: Regular rate/rhythm, Tachycardia Lungs: Clear bilaterally Peripheral pulses: 3+ Normal Peripheral pulse location: Radial Skin examination: Pale
[2020-11-04] MEDS: LORazepam 2 MG/ML VIAL IV PRN ×2 (02:07→06:42)
[2020-11-04] MEDS ORDERED: NA CHLORIDE 0.9% 250 ML ONE (02:21)
[2020-11-04] MEDS ORDERED: VANCOMYCIN 1 GM/VIAL ONE (02:23)
[2020-11-04] MEDS ORDERED: VANCOMYCIN 500 MG/VIAL ONE (02:24)
[2020-11-04] MEDS ORDERED: NA CHLORIDE 0.9% 500 ML IV ONE (04:09)
[2020-11-04] MEDS: NA CHLORIDE 0.9% 1,000 ML IV SCH (05:14)
[2020-11-04] MEDS: FAMOTIDINE 20 MG/2 ML VIAL IV SCH (08:44)
[2020-11-04] MEDS: HEPARIN 5000 UNIT/ML 1 ML VIAL SQ SCH ×2 (08:44→20:58)
[2020-11-04] MEDS: JEVITY 1.5 CAL LIQUID 1,000 ML BOT FT SCH ×3 (08:45→20:59)
[2020-11-04 11:32] LABS: Absolute Lymphocytes (CBC) 0.8 K/uL (0.7-4.9); Basophils % 0.2 % (0-1.3); Lymphocytes % 4.7 % (15.3-44.8); MPV 10.2 fL (7.6-11.3); RBC Red Blood Cell Count 2.75 M/uL (4.33-5.43)
--- NOTE | 2020-11-04 11:34 | RAD REPORT ---
EXAM DESCRIPTION: RAD - Chest Single View - 11/04/2020 7:22 am CLINICAL HISTORY: pneumonia Chest pain. COMPARISON: Chest Single View dated 11/03/2020; Chest Single View dated 10/11/2020; Chest Single View dated 10/07/2020; Chest Single View dated 09/15/2020 FINDINGS: Portable technique limits examination quality. Bilateral pulmonary opacities have mildly progressed, particularly the opacity in the right upper lob e, since the comparative study. The heart is normal in size. No displaced fractures. IMPRESSION: Mild worsening bilateral pneumonia pattern seen since comparative study.
[2020-11-04 12:54] LABS: Blood Morphology Comment NOT SEEN (NOT SEEN); Platelet Estimate ADEQ
[2020-11-04 13:18] LABS: Potassium 4.2 mmol/L (3.5-5.1)
[2020-11-04] MEDS: D5W 1,000 ML IV SCH ×2 (14:00→20:58)
[2020-11-04] MEDS ORDERED: CEFEPIME/SWI 1gm 10 ML IV SCH (16:00)
[2020-11-04] MEDS ORDERED: CEFEPIME/SWI 1gm 10 ML IVP SCH (16:00)
--- NOTE | 2020-11-04 19:06 | P.PN ---
Subjective Date of Service: 11/04/20 Primary Care Provider: None, Previously Dr. Cline Chief Complaint: Septic shock Subjective: Improving (Doign better still unresponsive. Hypernatremai) Review of Systems is unable to be obtained Physical Examination - Vital Signs Temperature: 96.6 F Blood Pressure: 90/60 Pulse: 75 Respirations: 18 Pulse Ox (%): 95 - Physical Exam General: Unresponsive Respiratory: Clear to auscultation bilaterally, Diminished Cardiovascular: No edema, Normal S1 S2 Gastrointestinal: Normal bowel sounds, Soft and benign Integumentary: Other (generalized rash) - Studies Microbiology Data (last 24 hrs): 11/03/20 13:40 Blood - Blood Anaerobic Blood Culture - Final 11/03/20 15:55 Nasopharnyx Influenza Type A Antigen Screen - Final 11/03/20 15:55 Nasopharnyx Influenza Type B Antigen Screen - Final 11/03/20 15:55 Throat Group A Streptococcus Rapid Screen - Final Assessment & Plan - Problems (Diagnosis) (1) Shock Current Visit: No Status: Acute Plan: Unresposve. On BIPAP/ Hypernatremia. Start DWater. Labs reviwed. Cultures so far negative. Cw Antibiotics. Prognosis poor Plan to discharge in: Greater than 2 days
[2020-11-04] MEDS ORDERED: CEFEPIME 1 GM/VIAL IV SCH (21:00)
[2020-11-05] MEDS: D5W 1,000 ML IV SCH ×3 (03:40→17:29)
[2020-11-05 06:02] LABS: Absolute Lymphocytes (CBC) 0.9 K/uL (0.7-4.9); Basophils % 0.1 % (0-1.3); Hematocrit 22.7 % (39.6-49.0); Lymphocytes % 6.9 % (15.3-44.8); MPV 9.9 fL (7.6-11.3); RBC Red Blood Cell Count 2.45 M/uL (4.33-5.43)
[2020-11-05 06:12] LABS: Potassium 3.8 mmol/L (3.5-5.1)
[2020-11-05] MEDS: FAMOTIDINE 20 MG/2 ML VIAL IV SCH (10:17)
[2020-11-05] MEDS: JEVITY 1.5 CAL LIQUID 1,000 ML BOT FT SCH ×4 (10:17→20:08)
[2020-11-05] MEDS: HEPARIN 5000 UNIT/ML 1 ML VIAL SQ SCH ×2 (10:17→20:08)
[2020-11-05] MEDS: CEFEPIME/SWI 1gm 10 ML IVP SCH (10:24)
[2020-11-05] MEDS ORDERED: Pharmacy Consult 1 EA XX PRN (10:55)
--- NOTE | 2020-11-05 10:56 | P.PN ---
Subjective Date of Service: 11/05/20 Primary Care Provider: None, Previously Dr. Cline Chief Complaint: Septic shock Subjective: Improving (Patient is improving) Review of Systems is unable to be obtained Physical Examination - Vital Signs Temperature: 96.9 F Blood Pressure: 102/69 Pulse: 62 Respirations: 27 Pulse Ox (%): 97 - Physical Exam General: Alert Respiratory: Clear to auscultation bilaterally Cardiovascular: No edema, Normal S1 S2 - Studies Microbiology Data (last 24 hrs): 11/03/20 15:55 Throat Culture & Sensitivity - Final NORMAL UPPER RESPIRATORY ZOIE GROWN. 11/03/20 13:40 Blood - Blood Anaerobic Blood Culture - Final Assessment & Plan - Problems (Diagnosis) (1) Shock Current Visit: No Status: Resolved Plan: Unresposve. On BIPAP/ Hypernatremia. Start DWater. Labs reviwed. Cultures so far negative. Cw Antibiotics. Prognosis poor (2) Hypernatremia Current Visit: No Status: Acute Plan: Severe hypernatremia which is improving increase his tube feeds picture copyist consult Dc BiPAP blood cultures so far negative so far blood cultures negative once is electrolytes abnormalities have been corrected nutritional condition optimize discharged back to custodial kidney function improving resume vancomycin repeat blood cultures
[2020-11-05] MEDS ORDERED: VANCOMYCIN/NS 1 gm 1 GM/250 ML BAG IV ONE (12:00)
[2020-11-06] MEDS: D5W 1,000 ML IV SCH ×4 (00:57→17:21)
[2020-11-06 05:00] LABS: Potassium 3.6 mmol/L (3.5-5.1)
[2020-11-06 05:29] LABS: Absolute Lymphocytes (CBC) 1.1 K/uL (0.7-4.9); Basophils % 0.2 % (0-1.3); Hematocrit 25.6 % (39.6-49.0); Lymphocytes % 10.7 % (15.3-44.8); MPV 9.7 fL (7.6-11.3)
[2020-11-06] MEDS: HEPARIN 5000 UNIT/ML 1 ML VIAL SQ SCH ×2 (10:28→20:53)
[2020-11-06] MEDS: CEFEPIME/SWI 1gm 10 ML IVP SCH (10:28)
[2020-11-06] MEDS: JEVITY 1.5 CAL LIQUID 1,000 ML BOT FT SCH ×4 (10:32→20:53)
--- NOTE | 2020-11-06 10:43 | P.PN ---
Subjective Date of Service: 11/06/20 Primary Care Provider: None, Previously Dr. Cline Chief Complaint: Hypernatremia Subjective: Improving (Patient is improving he is more alert today although is a little tachypneic) Review of Systems is unable to be obtained Physical Examination - Vital Signs Temperature: 97.3 F Blood Pressure: 128/79 Pulse: 87 Respirations: 30 Pulse Ox (%): 88 - Physical Exam General: Alert, Other (Tachypneic) HEENT: Atraumatic Neck: Supple Respiratory: Clear to auscultation bilaterally, Diminished - Studies Microbiology Data (last 24 hrs): 11/03/20 15:55 Throat Culture & Sensitivity - Final NORMAL UPPER RESPIRATORY ZOIE GROWN. Assessment & Plan - Problems (Diagnosis) (1) Hypernatremia Current Visit: No Status: Acute Plan: Hypernatremia improving and use IV fluid rate [facility] niece to be contacted to increases nutrition and give him more fluids via the PEG tube so far cultures are negative white count is now I have ordered a chest x-ray will check if it patient can be managed on nasal cannula oxygen O fully can be discharged tomorrow (2) Pneumonia Current Visit: Yes Status: Acute Plan: Possible aspiration pneumonia on the right lung white count is declining as stated changing to Augmentin and doxycycline at the time of discharge chest x- ray shows an infiltrate on the right side Qualifiers: Laterality: right Lung location: upper lobe of lung Discharge Plan: Home Plan to discharge in: 24 Hours
--- NOTE | 2020-11-06 12:23 | RAD REPORT ---
EXAM DESCRIPTION: RAD - Chest Single View - 11/06/2020 12:12 pm CLINICAL HISTORY: Possible pneumonia COMPARISON: November 04 TECHNIQUE: AP portable chest image was obtained 11/06/2020 12:12 pm . FINDINGS: Lung volumes are reduced compared to the prior study. The lower lung volume accentuates th e lung parenchymal opacification pattern. No worsening of the lung parenchymal on the right. Increase d opacification in the left base is probably the affects of the low lung volumes but patient can be m onitored. No gross progression or measurable improvement. Heart and vasculature are normal. No measurable pleural effusion and no pneumothorax. No acute bony abnormality seen. No acute aortic findings suspected. IMPRESSION: Chest is not substantially different from comparison. Low lung volumes increase lung par enchymal opacification.
[2020-11-07] MEDS ORDERED: VANCOMYCIN 750 MG in NA CHLORIDE 0.9% 150 ML IVPB SCH ×2
[2020-11-07] MEDS: D5W 1,000 ML IV SCH ×3 (00:01→13:21)
[2020-11-07 06:01] LABS: Potassium 3.2 mmol/L (3.5-5.1)
--- NOTE | 2020-11-07 08:47 | RAD REPORT ---
EXAM DESCRIPTION: RAD - Chest Single View - 11/07/2020 5:26 am CLINICAL HISTORY: Possible pneumonia Chest pain. COMPARISON: Chest Single View dated 11/06/2020; Chest Single View dated 11/04/2020; Chest Single Vie w dated 11/03/2020; Chest Single View dated 10/11/2020 FINDINGS: Portable technique limits examination quality. Bilateral pulmonary opacities are present with airspace infiltrate in the right upper lobe, right low er lobe and to a lesser extent the left lower lobe, appearing moderately progressive since comparativ e study. The heart is normal in size. No displaced fractures. IMPRESSION: Moderate worsening in right lung aeration noted since comparative study.
[2020-11-07] MEDS: CEFEPIME/SWI 1gm 10 ML IVP SCH (09:05)
[2020-11-07] MEDS: JEVITY 1.5 CAL LIQUID 1,000 ML BOT FT SCH ×4 (09:06→21:44)
[2020-11-07] MEDS: HEPARIN 5000 UNIT/ML 1 ML VIAL SQ SCH ×2 (09:06→21:44)
[2020-11-07] MEDS ORDERED: ALBUMIN HUMAN 25% 100 ML IV ONE (09:43)
[2020-11-07] MEDS ORDERED: NA CHLORIDE 0.9% 250 ML IV ONE (09:43)
[2020-11-07] MEDS: JUVEN PACKET PO SCH ×2 (10:10→21:44)
[2020-11-07 10:20] LABS: Absolute Lymphocytes (CBC) 1.2 K/uL (0.7-4.9); Basophils % 0.1 % (0-1.3); Hematocrit 23.7 % (39.6-49.0); MPV 9.9 fL (7.6-11.3); RBC Red Blood Cell Count 2.64 M/uL (4.33-5.43)
[2020-11-07 10:43] LABS: Albumin 1.4 g/dL (3.4-5.0); Bilirubin Total 0.4 mg/dL (0.2-1.0); Potassium 3.3 mmol/L (3.5-5.1); Protein, Total 5.6 g/dL (6.4-8.2); Thyroid Stimulating Hormone 2.36 uIU/mL (0.360-3.740)
--- NOTE | 2020-11-07 11:55 | P.PN ---
Subjective Date of Service: 11/07/20 Primary Care Provider: None, Previously Dr. Cline Chief Complaint: Respiratory failure Patient is tachypneic requiring oxygen hypoxic also is hypotensive more alert hypernatremia corrected Review of Systems is unable to be obtained Physical Examination - Vital Signs Temperature: 97.2 F Blood Pressure: 80/54 Pulse: 96 Respirations: 32 Pulse Ox (%): 92 - Physical Exam General: Alert, Moderate distress Respiratory: Crackles/rales (Crackles on the right side) Cardiovascular: No edema, Regular rate/rhythm Assessment & Plan - Problems (Diagnosis) (1) Hypernatremia Current Visit: No Status: Acute Plan: Hypernatremia and now corrected (2) Pneumonia Current Visit: Yes Status: Acute Plan: Patient has a right upper lobe pneumonia broad-spectrum antibiotics currently hypotensive will do some fluid boluses labs reviewed white count is elevated Qualifiers: Pneumonia type: due to unspecified organism Laterality: right Lung location: upper lobe of lung Qualified Code(s): J18.9 - Pneumonia, unspecified organism
[2020-11-07 12:20] LABS: Anisocytosis 1+; Blood Morphology Comment NOTED (NOT SEEN); Platelet Estimate ADEQ
[2020-11-07] MEDS ORDERED: NA CHLORIDE 0.9% 250 ML ONE (15:33)
[2020-11-07] MEDS ORDERED: Meropenem 1000 MG/VIAL IV SCH (17:00)
[2020-11-07] MEDS: Meropenem 1,000 MG in NA CHLORIDE 0.9% 100 ML IV SCH (17:32)
[2020-11-07] MEDS: VANCOMYCIN 750 MG in NA CHLORIDE 0.9% 150 ML IVPB SCH (18:34)
[2020-11-07 22:05] LABS: Hematocrit 28.4 % (39.6-49.0)
[2020-11-08] MEDS: Meropenem 1,000 MG in NA CHLORIDE 0.9% 100 ML IV SCH ×3 (00:19→15:45)
[2020-11-08] MEDS: D5W 1,000 ML IV SCH ×3 (00:19→15:43)
[2020-11-08] MEDS: JUVEN PACKET PO SCH ×2 (09:00→20:05)
[2020-11-08] MEDS: JEVITY 1.5 CAL LIQUID 1,000 ML BOT FT SCH ×4 (09:00→20:06)
[2020-11-08] MEDS: HEPARIN 5000 UNIT/ML 1 ML VIAL SQ SCH ×2 (10:18→20:05)
[2020-11-08 11:45] LABS: Basophils % 0.4 % (0-1.3); Hematocrit 30.7 % (39.6-49.0); Lymphocytes % 5.2 % (15.3-44.8); MPV 10.4 fL (7.6-11.3); RBC Red Blood Cell Count 3.45 M/uL (4.33-5.43)
[2020-11-08 11:49] LABS: Magnesium 1.9 mg/dL (1.8-2.4); Potassium 3.2 mmol/L (3.5-5.1)
--- NOTE | 2020-11-08 15:04 | RAD REPORT ---
EXAM DESCRIPTION: Shira Single View11/08/2020 2:54 pm CLINICAL HISTORY: Chest pain COMPARISON: October 30, 2020 FINDINGS: Overall mild worsening in the bilateral pulmonary opacities. The heart is normal size. Ba ttery overlies the left upper chest IMPRESSION: Mild worsening in bilateral pulmonary opacities which are moderate to marked. This prob ably represents pneumonia
[2020-11-09] MEDS: Meropenem 1,000 MG in NA CHLORIDE 0.9% 100 ML IV SCH ×3 (00:05→18:13)
[2020-11-09] MEDS: D5W 1,000 ML IV SCH (05:28)
[2020-11-09 06:04] LABS: Absolute Lymphocytes (CBC) 1.3 K/uL (0.7-4.9); Basophils % 0.2 % (0-1.3); Hematocrit 29.2 % (39.6-49.0); Lymphocytes % 6.7 % (15.3-44.8); MPV 9.8 fL (7.6-11.3); RBC Red Blood Cell Count 3.32 M/uL (4.33-5.43)
[2020-11-09 06:19] LABS: Albumin 1.3 g/dL (3.4-5.0); Bilirubin Total 0.3 mg/dL (0.2-1.0); Magnesium 1.8 mg/dL (1.8-2.4); Phosphorus 2.8 mg/dL (2.5-4.9); Potassium 3.6 mmol/L (3.5-5.1); Protein, Total 5.7 g/dL (6.4-8.2)
[2020-11-09] MEDS: VANCOMYCIN 750 MG in NA CHLORIDE 0.9% 150 ML IVPB SCH (06:52)
[2020-11-09] MEDS ORDERED: ALBUMIN HUMAN 25% 100 ML IV ONE (09:50)
--- NOTE | 2020-11-09 09:55 | P.PN ---
Subjective Date of Service: 11/07/20 Subjective: No new changes, No C/O voiced, Improving Review of Systems 10-point ROS is otherwise unremarkable Physical Examination - Vital Signs Temperature: 97.8 F Blood Pressure: 94/62 Pulse: 95 Respirations: 29 Pulse Ox (%): 91 - Physical Exam General: Alert, In no apparent distress, Confused, Other (Patient not really that interacting. He seems to follow most of my commands but does seem to be a little confused) Respiratory: Diminished, Crackles/rales, Expiratory wheezes Cardiovascular: Regular rate/rhythm, Normal S1 S2, Systolic murmur Gastrointestinal: Normal bowel sounds, Soft and benign, Non-distended Musculoskeletal: No clubbing, No swelling Neurological: Sensation intact, Cranial nerves 3-12 intact, Abnormal gait, Abnormal strength, Abnormal tone - Studies Microbiology Data (last 24 hrs): 11/03/20 13:40 Blood - Blood Aerobic Blood Culture - Final No growth in 5 days. 11/03/20 13:40 Blood - Blood Anaerobic Blood Culture - Final Assessment & Plan - Problems (Diagnosis) (1) Aspiration pneumonia Current Visit: Yes Status: Acute (2) Acute lung injury Current Visit: Yes Status: Acute (3) Hypoalbuminemia due to protein-calorie malnutrition Current Visit: Yes Status: Acute (4) Pneumonia Current Visit: Yes Status: Acute Qualifiers: Pneumonia type: due to unspecified organism Laterality: right Lung location: upper lobe of lung Qualified Code(s): J18.9 - Pneumonia, unspecified organism (5) Acute renal failure Current Visit: No Status: Acute Qualifiers: Acute renal failure type: unspecified Qualified Code(s): N17.9 - Acute kidney failure, unspecified (6) COVID-19 Current Visit: No Status: Acute (7) Cerebral palsy Current Visit: No Status: Acute Qualifiers: Cerebral palsy type: spastic diplegic Qualified Code(s): G80.1 - Spastic diplegic cerebral palsy (8) Depression Current Visit: No Status: Acute Qualifiers: Depression Type: major depressive disorder Active/Remission status: currently active Psychotic features: without psychotic features (9) HTN (hypertension) Current Visit: No Status: Acute Qualifiers: Hypertension type: essential hypertension Qualified Code(s): I10 - Essential (primary) hypertension (10) Anemia Current Visit: No Status: Acute Qualifiers: Iron deficiency anemia type: other iron deficiency - Plan Plan: 1. Continue on IV antibiotics 2. Aspiration precautions 3. Continue with PEG tube feedings 4. DNR status 5. Family considering hospice care; will have further discussions and have case management send them information 6. Increase nutritional support with Nick 7. long-term prognosis is poor. Would benefit from hospice care 8. Transfuse 2 units packed red blood cells 9. Monitor renal function 10. GI and DVT prophylaxis Discharge Plan: Other Plan to discharge in: Greater than 2 days - Advance Directives Does patient have a Living Will: No Does patient have a Durable POA for Healthcare: Yes - Code Status/Comfort Care Code Status Assessed: Yes Code Status: Do Not Attempt Resuscitat Critical Care: No Time Spent Managing PTS Care (In Minutes): 35
[2020-11-09] MEDS ORDERED: SCOPOLAMINE HYDROBROMIDE PATCH TD ONE (09:57)
--- NOTE | 2020-11-09 09:58 | P.PN ---
Subjective Date of Service: 11/08/20 Patient not really wearing his BiPAP. Will switch it over to high-flow oxygen. Hopefully will use this a little bit better than he has the BiPAP; skin tear on nares Review of Systems is unable to be obtained Physical Examination - Vital Signs Temperature: 97.8 F Blood Pressure: 94/62 Pulse: 95 Respirations: 29 Pulse Ox (%): 91 - Physical Exam General: Alert, Disheveled, Moderate distress, Confused HEENT: Atraumatic, Normocephalic, Other (Nasal bruising) Neck: JVD not distended, No Thyromegaly Respiratory: Crackles/rales, Expiratory wheezes Cardiovascular: Regular rate/rhythm, Normal S1 S2, Systolic murmur Gastrointestinal: Normal bowel sounds, Soft and benign, Non-distended Musculoskeletal: No clubbing, Swelling Integumentary: Other (Diffuse bruising) Neurological: Cranial nerves 3-12 intact, Abnormal gait, Abnormal strength - Studies Microbiology Data (last 24 hrs): 11/03/20 13:40 Blood - Blood Aerobic Blood Culture - Final No growth in 5 days. 11/03/20 13:40 Blood - Blood Anaerobic Blood Culture - Final Assessment & Plan - Problems (Diagnosis) (1) Aspiration pneumonia Current Visit: Yes Status: Acute (2) Acute lung injury Current Visit: Yes Status: Acute (3) Hypoalbuminemia due to protein-calorie malnutrition Current Visit: Yes Status: Acute (4) Pneumonia Current Visit: Yes Status: Acute Qualifiers: Pneumonia type: due to unspecified organism Laterality: right Lung location: upper lobe of lung Qualified Code(s): J18.9 - Pneumonia, unspecified organism (5) Acute renal failure Current Visit: No Status: Acute Qualifiers: Acute renal failure type: unspecified Qualified Code(s): N17.9 - Acute kidney failure, unspecified (6) COVID-19 Current Visit: No Status: Acute (7) Cerebral palsy Current Visit: No Status: Acute Qualifiers: Cerebral palsy type: spastic diplegic Qualified Code(s): G80.1 - Spastic diplegic cerebral palsy (8) Depression Current Visit: No Status: Acute Qualifiers: Depression Type: major depressive disorder Active/Remission status: currently active Psychotic features: without psychotic features (9) HTN (hypertension) Current Visit: No Status: Acute Qualifiers: Hypertension type: essential hypertension Qualified Code(s): I10 - Essential (primary) hypertension (10) Anemia Current Visit: No Status: Acute Qualifiers: Iron deficiency anemia type: other iron deficiency - Plan Plan: Continue with plan of care as mentioned below 1. Continue on IV antibiotics 2. Aspiration precautions 3. Continue with PEG tube feedings 4. DNR status 5. Family considering hospice care; will have further discussions and have case management send them information 6. Increase nutritional support with Nick 7. long-term prognosis is poor. Would benefit from hospice care 8. Transfuse 2 units packed red blood cells 9. Monitor renal function 10. Started high-flow oxygen since he was not wearing his BiPAP any does have some breakdown on his nares 11. Start scopolamine patch 12. GI and DVT prophylaxis - Advance Directives Does patient have a Living Will: No Does patient have a Durable POA for Healthcare: Yes - Code Status/Comfort Care Code Status: Do Not Attempt Resuscitat Critical Care: No Time Spent Managing PTS Care (In Minutes): 35
[2020-11-09] MEDS: JUVEN PACKET PO SCH ×2 (10:43→19:52)
[2020-11-09] MEDS: HEPARIN 5000 UNIT/ML 1 ML VIAL SQ SCH ×2 (10:43→19:55)
[2020-11-09] MEDS: JEVITY 1.5 CAL LIQUID 1,000 ML BOT FT SCH ×4 (10:44→19:52)
--- NOTE | 2020-11-09 12:23 | P.PN ---
Subjective Date of Service: 11/09/20 Primary Care Provider: None, Previously Dr. Cline Chief Complaint: Respiratory failure Patient is more alert today is a little tachypneic and hypoxic has pneumonia in the right upper lobe Proteus bacteremia Physical Examination - Vital Signs Temperature: 97.8 F Blood Pressure: 94/62 Pulse: 95 Respirations: 29 Pulse Ox (%): 91 - Physical Exam General: Alert Respiratory: Crackles/rales (The right upper lobe), Expiratory wheezes Cardiovascular: No edema, Regular rate/rhythm - Studies Microbiology Data (last 24 hrs): 11/03/20 13:40 Blood - Blood Aerobic Blood Culture - Final No growth in 5 days. 11/03/20 13:40 Blood - Blood Anaerobic Blood Culture - Final Assessment & Plan - Problems (Diagnosis) (1) Pneumonia Current Visit: Yes Status: Acute Plan: Patient admitted with pneumonia and bacteremia discuss hospitalist to discuss with relatives regarding hospice care or treatment with IV meropenem for 7 days due to the bacteremia later change to Augmentin by the PEG tube white count is declining hypernatremia resolved kidney function is improved Qualifiers: Pneumonia type: due to unspecified organism Laterality: right Lung location: upper lobe of lung Qualified Code(s): J18.9 - Pneumonia, unspecified organism
[2020-11-10] MEDS: Meropenem 1,000 MG in NA CHLORIDE 0.9% 100 ML IV SCH ×3 (00:21→17:06)
[2020-11-10] MEDS: JUVEN PACKET PO SCH ×2 (08:53→20:48)
--- NOTE | 2020-11-10 08:56 | P.PN ---
Subjective Date of Service: 11/09/20 Patient remains short of breath. Continues on high-flow oxygen. Oxygenation is improved. Spoke with brother regarding patient's current status the day before and case management to refer to hospice for discussion regarding long-term plan of care Review of Systems 10-point ROS is otherwise unremarkable Physical Examination - Vital Signs Temperature: 97.9 F Blood Pressure: 117/52 Pulse: 91 Respirations: 18 Pulse Ox (%): 94 - Physical Exam General: Alert, Moderate distress, Confused Respiratory: Diminished, Expiratory wheezes Cardiovascular: Regular rate/rhythm, Normal S1 S2, Systolic murmur Gastrointestinal: Normal bowel sounds, Soft and benign, Non-distended Musculoskeletal: No clubbing, Swelling Neurological: Normal gait, Normal strength at 5/5 x4 extr, Normal tone Assessment & Plan - Problems (Diagnosis) (1) Aspiration pneumonia Current Visit: Yes Status: Acute (2) Acute lung injury Current Visit: Yes Status: Acute (3) Hypoalbuminemia due to protein-calorie malnutrition Current Visit: Yes Status: Acute (4) Pneumonia Current Visit: Yes Status: Acute Qualifiers: Pneumonia type: due to unspecified organism Laterality: right Lung location: upper lobe of lung Qualified Code(s): J18.9 - Pneumonia, unspecified organism (5) Acute renal failure Current Visit: No Status: Acute Qualifiers: Acute renal failure type: unspecified Qualified Code(s): N17.9 - Acute kidney failure, unspecified (6) COVID-19 Current Visit: No Status: Acute (7) Cerebral palsy Current Visit: No Status: Acute Qualifiers: Cerebral palsy type: spastic diplegic Qualified Code(s): G80.1 - Spastic diplegic cerebral palsy (8) Depression Current Visit: No Status: Acute Qualifiers: Depression Type: major depressive disorder Active/Remission status: currently active Psychotic features: without psychotic features (9) HTN (hypertension) Current Visit: No Status: Acute Qualifiers: Hypertension type: essential hypertension Qualified Code(s): I10 - Essential (primary) hypertension (10) Anemia Current Visit: No Status: Acute Qualifiers: Iron deficiency anemia type: other iron deficiency - Plan Plan: Continue with plan of care as mentioned below 1. Continue on IV antibiotics 2. Aspiration precautions 3. Continue with PEG tube feedings; protein supplementation 4. DNR status 5. Family considering hospice care; will have further discussions and have case management send them information from hospice [employer]. 6. Status post transfusion with 2 units of packed red blood cells; hemoglobin stable 7. Started high-flow oxygen since he was not wearing his BiPAP any does have some breakdown on his nares; tolerating it better 8. Start scopolamine patch q72h for increased secretions. Monitor heart rate 9. GI and DVT prophylaxis - Advance Directives Does patient have a Living Will: No Does patient have a Durable POA for Healthcare: Yes - Code Status/Comfort Care Code Status: Do Not Attempt Resuscitat
[2020-11-10] MEDS: JEVITY 1.5 CAL LIQUID 1,000 ML BOT FT SCH ×4 (10:20→20:48)
[2020-11-10 11:12] LABS: Absolute Lymphocytes (CBC) 1.6 K/uL (0.7-4.9); Basophils % 0.3 % (0-1.3); Hematocrit 31.2 % (39.6-49.0); Lymphocytes % 9.5 % (15.3-44.8); MPV 9.9 fL (7.6-11.3); RBC Red Blood Cell Count 3.46 M/uL (4.33-5.43)
[2020-11-10] MEDS ORDERED: ALBUMIN HUMAN 25% 50 ML IV ONE (11:58)
[2020-11-10] MEDS ORDERED: FUROSEMIDE 20 MG/ 2ML VIAL IV ONE (11:58)
[2020-11-10 12:09] LABS: Anisocytosis 1+; Blood Morphology Comment NOTED (NOT SEEN); Platelet Estimate ADEQ
[2020-11-10] MEDS: METHYLPREDNISOLONE 125 MG INJ IV SCH ×3 (12:49→23:33)
[2020-11-10] MEDS: ALBUTEROL 2.5 MG/3 ML NEB SOL NEB SCH ×2 (15:40→19:38)
[2020-11-10] MEDS: IPRATROPIUM BROM 0.5MG/2.5ML NEB SCH ×2 (15:40→19:38)
[2020-11-10] MEDS ORDERED: NA CHLORIDE 0.9% 0 ML ONE (21:59)
[2020-11-10] MEDS ORDERED: NA CHLORIDE 0.9% 500 ML ONE (22:01)
[2020-11-11] MEDS: ALBUTEROL 2.5 MG/3 ML NEB SOL NEB SCH ×4 (02:23→20:50)
[2020-11-11] MEDS: IPRATROPIUM BROM 0.5MG/2.5ML NEB SCH ×4 (02:23→20:50)
[2020-11-11] MEDS: METHYLPREDNISOLONE 125 MG INJ IV SCH ×3 (05:12→20:47)
[2020-11-11] MEDS: JEVITY 1.5 CAL LIQUID 1,000 ML BOT FT SCH ×4 (10:29→20:51)
[2020-11-11] MEDS: JUVEN PACKET PO SCH ×2 (10:30→20:51)
[2020-11-11] MEDS: Meropenem 1,000 MG in NA CHLORIDE 0.9% 100 ML IV SCH ×4 (10:31→16:40)
[2020-11-11] MEDS ORDERED: FUROSEMIDE 20 MG/ 2ML VIAL IV ONE (15:10)
--- NOTE | 2020-11-11 15:13 | P.PN ---
Subjective Date of Service: 11/10/20 Patient doing better. Still seems a little tachypneic but overall clinical picture has continued to improve. Arrange for transfer back to [facility] over the next 48-72 hr. Would advise hospice care. Family was notified and awaiting discussion with hospice company. Review of Systems is unable to be obtained Physical Examination - Vital Signs Temperature: 97.4 F Blood Pressure: 126/74 Pulse: 89 Respirations: 16 Pulse Ox (%): 95 - Physical Exam General: Confused, Other (Cachectic and disheveled) HEENT: Atraumatic, Normocephalic, Other (Temporal wasting) Neck: 2+ carotid pulse no bruit Respiratory: Diminished, Expiratory wheezes Cardiovascular: Regular rate/rhythm, Normal S1 S2 Gastrointestinal: Normal bowel sounds, Soft and benign, Non-distended Musculoskeletal: No clubbing, Swelling Integumentary: No rashes Neurological: Abnormal gait, Abnormal speech, Abnormal strength, Abnormal tone, Abnormal sensation, Abnormal cranial nerve function Assessment & Plan - Problems (Diagnosis) (1) Aspiration pneumonia Current Visit: Yes Status: Acute (2) Acute lung injury Current Visit: Yes Status: Acute (3) Hypoalbuminemia due to protein-calorie malnutrition Current Visit: Yes Status: Acute (4) Pneumonia Current Visit: Yes Status: Acute Qualifiers: Pneumonia type: due to unspecified organism Laterality: right Lung location: upper lobe of lung Qualified Code(s): J18.9 - Pneumonia, unspecified organism (5) Acute renal failure Current Visit: No Status: Acute Qualifiers: Acute renal failure type: unspecified Qualified Code(s): N17.9 - Acute kidney failure, unspecified (6) COVID-19 Current Visit: No Status: Acute (7) Cerebral palsy Current Visit: No Status: Acute Qualifiers: Cerebral palsy type: spastic diplegic Qualified Code(s): G80.1 - Spastic diplegic cerebral palsy (8) Depression Current Visit: No Status: Acute Qualifiers: Depression Type: major depressive disorder Active/Remission status: currently active Psychotic features: without psychotic features (9) HTN (hypertension) Current Visit: No Status: Acute Qualifiers: Hypertension type: essential hypertension Qualified Code(s): I10 - Essential (primary) hypertension (10) Anemia Current Visit: No Status: Acute Qualifiers: Iron deficiency anemia type: other iron deficiency - Plan Plan: Continue with plan of care as mentioned below 1. Continue on IV antibiotics; also gave some diuretics along with steroids and neb treatments for the respiratory status 2. Aspiration precautions 3. Continue with PEG tube feedings; protein supplementation 4. DNR status 5. Family considering hospice care; will have further discussions and have case management send them information from hospice [employer]. 6. Tolerating oxygen on at 4 L 7. Start scopolamine patch q72h for increased secretions. 8. Monitor heart rate 9. GI and DVT prophylaxis Discharge Plan: Care Home Plan to discharge in: Greater than 2 days - Advance Directives Does patient have a Living Will: No Does patient have a Durable POA for Healthcare: Yes - Code Status/Comfort Care Code Status: Do Not Attempt Resuscitat Critical Care: No Time Spent Managing PTS Care (In Minutes): 35
--- NOTE | 2020-11-11 15:13 | P.PN ---
Subjective Date of Service: 11/11/20 Subjective: Improving Patient continues to do well with no new complaints. Review of Systems is unable to be obtained Physical Examination - Vital Signs Temperature: 97.4 F Blood Pressure: 126/74 Pulse: 89 Respirations: 16 Pulse Ox (%): 95 - Physical Exam General: Alert, In no apparent distress, Confused Respiratory: Diminished, Expiratory wheezes Cardiovascular: Regular rate/rhythm, Normal S1 S2 Gastrointestinal: Normal bowel sounds, Soft and benign, Non-distended, Other (peg tube) Musculoskeletal: No clubbing, No swelling Neurological: Abnormal gait, Abnormal strength Assessment & Plan - Problems (Diagnosis) (1) Aspiration pneumonia Current Visit: Yes Status: Acute (2) Acute lung injury Current Visit: Yes Status: Acute (3) Hypoalbuminemia due to protein-calorie malnutrition Current Visit: Yes Status: Acute (4) Pneumonia Current Visit: Yes Status: Acute Qualifiers: Pneumonia type: due to unspecified organism Laterality: right Lung location: upper lobe of lung Qualified Code(s): J18.9 - Pneumonia, unspecified organism (5) Acute renal failure Current Visit: No Status: Acute Qualifiers: Acute renal failure type: unspecified Qualified Code(s): N17.9 - Acute kidney failure, unspecified (6) COVID-19 Current Visit: No Status: Acute (7) Cerebral palsy Current Visit: No Status: Acute Qualifiers: Cerebral palsy type: spastic diplegic Qualified Code(s): G80.1 - Spastic diplegic cerebral palsy (8) Depression Current Visit: No Status: Acute Qualifiers: Depression Type: major depressive disorder Active/Remission status: currently active Psychotic features: without psychotic features (9) HTN (hypertension) Current Visit: No Status: Acute Qualifiers: Hypertension type: essential hypertension Qualified Code(s): I10 - Essential (primary) hypertension (10) Anemia Current Visit: No Status: Acute Qualifiers: Iron deficiency anemia type: other iron deficiency - Plan Plan: Continue with plan of care as mentioned below 1. Continue on IV antibiotics; also gave some diuretics ; wean off steroids; cont. neb treatments for the respiratory status 2. Aspiration precautions 3. Continue with PEG tube feedings; protein supplementation 4. DNR status 5. Family considering hospice care; awaitng discussion with hospice company 6. Tolerating oxygen on at 4 L; weaning 7. Scopolamine patch q72h for increased secretions. 8. Monitor heart rate 9. GI and DVT prophylaxis Discharge Plan: Care Home Plan to discharge in: Greater than 2 days - Advance Directives Does patient have a Living Will: No Does patient have a Durable POA for Healthcare: Yes - Code Status/Comfort Care Code Status: Do Not Attempt Resuscitat Critical Care: No Time Spent Managing PTS Care (In Minutes): 30
[2020-11-11] MEDS ORDERED: KCL 20 MEQ/100 mL IVPB 20 MEQ/100 ML BAG IV SCH (16:00)
[2020-11-11] MEDS ORDERED: BENZOCAINE 20% 5.25 GM JAR TOP PRN (16:50)
[2020-11-11] MEDS: FUROSEMIDE 40 MG/4 ML VIAL IV SCH (20:49)
[2020-11-12] MEDS: Meropenem 1,000 MG in NA CHLORIDE 0.9% 100 ML IV SCH ×3 (00:34→17:48)
[2020-11-12] MEDS: FUROSEMIDE 40 MG/4 ML VIAL IV SCH (00:34)
[2020-11-12] MEDS: ALBUTEROL 2.5 MG/3 ML NEB SOL NEB SCH ×4 (01:07→20:05)
[2020-11-12] MEDS: IPRATROPIUM BROM 0.5MG/2.5ML NEB SCH ×4 (01:07→20:05)
[2020-11-12 06:28] LABS: Absolute Lymphocytes (CBC) 1.4 K/uL (0.7-4.9); Basophils % 0.1 % (0-1.3); Hematocrit 32.6 % (39.6-49.0); Lymphocytes % 6.3 % (15.3-44.8); RBC Red Blood Cell Count 3.61 M/uL (4.33-5.43)
[2020-11-12 06:33] LABS: Magnesium 2.6 mg/dL (1.8-2.4); Phosphorus 3.4 mg/dL (2.5-4.9); Potassium 4.3 mmol/L (3.5-5.1)
[2020-11-12] MEDS ORDERED: D5W 1,000 ML IV SCH (07:00)
[2020-11-12 08:14] LABS: Blood Morphology Comment NOT SEEN (NOT SEEN); Platelet Estimate ADEQ; Toxic Granulation 1+
--- NOTE | 2020-11-12 08:24 | RAD REPORT ---
EXAM DESCRIPTION: Shira Single View11/12/2020 6:21 am CLINICAL HISTORY: Shortness breath COMPARISON: November 08, 2020 FINDINGS: Lucency is present along the right the lateral hemithorax. Mild to moderate improvement in the right and mild improvement in the left pulmonary opacities IMPRESSION: Mild to moderate improvement in the pneumonia Lucency along the right lateral hemithorax may represent a small pneumothorax. It is recommended that the patient have an x-ray obtained in expiration for further evaluation
[2020-11-12] MEDS: METHYLPREDNISOLONE 125 MG INJ IV SCH (09:35)
[2020-11-12] MEDS: DOCUSATE NA 100 MG CAP PO SCH (09:35)
[2020-11-12] MEDS: JEVITY 1.5 CAL LIQUID 1,000 ML BOT FT SCH ×3 (09:35→20:52)
[2020-11-12] MEDS: SERTRALINE HCL 50 MG TAB FT SCH (09:35)
[2020-11-12] MEDS: JUVEN PACKET PO SCH ×2 (09:36→20:52)
[2020-11-12] MEDS: D5W 1,000 ML IV SCH ×2 (15:22→23:59)
[2020-11-12] MEDS: predniSONE 20 MG TAB PO SCH (20:52)
[2020-11-13] MEDS: D5W 1,000 ML IV SCH ×2 (00:30→12:22)
[2020-11-13] MEDS: IPRATROPIUM BROM 0.5MG/2.5ML NEB SCH ×4 (02:20→20:15)
[2020-11-13] MEDS: ALBUTEROL 2.5 MG/3 ML NEB SOL NEB SCH ×4 (02:20→20:15)
[2020-11-13] MEDS: DOCUSATE NA 100 MG CAP PO SCH (09:03)
[2020-11-13] MEDS: SERTRALINE HCL 50 MG TAB FT SCH (09:03)
[2020-11-13] MEDS: JUVEN PACKET PO SCH ×2 (09:03→21:00)
[2020-11-13] MEDS: JEVITY 1.5 CAL LIQUID 1,000 ML BOT FT SCH ×3 (09:03→21:00)
[2020-11-13] MEDS: predniSONE 20 MG TAB PO SCH ×2 (09:03→21:36)
[2020-11-13] MEDS: Meropenem 1,000 MG in NA CHLORIDE 0.9% 100 ML IV SCH ×4 (09:04→17:58)
--- NOTE | 2020-11-13 10:03 | P.PN ---
Subjective Date of Service: 11/12/20 Patient is doing well with no new complaints. Clinically is doing better. Labs were showing elevated sodium level & increased white count. Otherwise, patient appears to be doing better. Chest x-ray pending Review of Systems 10-point ROS is otherwise unremarkable Physical Examination - Vital Signs Temperature: 98.0 F Blood Pressure: 133/78 Pulse: 65 Respirations: 24 Pulse Ox (%): 94 - Physical Exam General: Alert, In no apparent distress, Oriented x3 Respiratory: Clear to auscultation bilaterally, Normal air movement Cardiovascular: Regular rate/rhythm, Normal S1 S2, No murmurs Gastrointestinal: Normal bowel sounds, Soft and benign, Non-distended, No tenderness Musculoskeletal: No clubbing, No swelling, No tenderness Neurological: Sensation intact, Cranial nerves 3-12 intact Lymphatics: No axilla or inguinal lymphadenopathy - Studies Medications List Reviewed: Yes Assessment & Plan - Problems (Diagnosis) (1) Aspiration pneumonia Current Visit: Yes Status: Acute (2) Acute lung injury Current Visit: Yes Status: Acute (3) Hypoalbuminemia due to protein-calorie malnutrition Current Visit: Yes Status: Acute (4) Pneumonia Current Visit: Yes Status: Acute Qualifiers: Pneumonia type: due to unspecified organism Laterality: right Lung location: upper lobe of lung Qualified Code(s): J18.9 - Pneumonia, unspecified organism (5) Acute renal failure Current Visit: No Status: Acute Qualifiers: Acute renal failure type: unspecified Qualified Code(s): N17.9 - Acute kidney failure, unspecified (6) COVID-19 Current Visit: No Status: Acute (7) Cerebral palsy Current Visit: No Status: Acute Qualifiers: Cerebral palsy type: spastic diplegic Qualified Code(s): G80.1 - Spastic diplegic cerebral palsy (8) Depression Current Visit: No Status: Acute Qualifiers: Depression Type: major depressive disorder Active/Remission status: currently active Psychotic features: without psychotic features (9) HTN (hypertension) Current Visit: No Status: Acute Qualifiers: Hypertension type: essential hypertension Qualified Code(s): I10 - Essential (primary) hypertension (10) Anemia Current Visit: No Status: Acute Qualifiers: Iron deficiency anemia type: other iron deficiency - Plan Plan: Continue with plan of care as mentioned below 1. Would change to oral antibiotics through PEG tube 2. Aspiration precautions 3. Continue with PEG tube feedings; protein supplementation 4. DNR status 5. Family considering hospice care; will have further discussions and have case management send them information from hospice companies. 6. Tolerating oxygen on at 4 L; continue to wean down 7. Start scopolamine patch q72h for increased secretions. 8. Monitor heart rate 9. GI and DVT prophylaxis Discharge Plan: Custodial Plan to discharge in: 48 Hours - Advance Directives Does patient have a Living Will: No Does patient have a Durable POA for Healthcare: Yes - Code Status/Comfort Care Code Status: Do Not Attempt Resuscitat Critical Care: No Time Spent Managing PTS Care (In Minutes): 35
--- NOTE | 2020-11-13 10:04 | P.PN ---
Subjective Date of Service: 11/13/20 patient is clinically doing well. Renal function and hydration status has improved. Tube feeds are being tolerated. Pneumonia looks to have improved on chest x-ray. electrolytes are stable. Tooth pain is stable. Patient would be appropriate for hospice care. okay to discharge with IV antibiotic therapy once accepted back to with [facility]. Patient will need to continue tube feeds and patient needs about 4 more days of IV antibiotic therapy. Hopefully they will discuss hospice care as patient is very cachectic and is a high risk of recurrent aspirations. Review of Systems 10-point ROS is otherwise unremarkable Physical Examination - Vital Signs Temperature: 98.0 F Blood Pressure: 133/78 Pulse: 65 Respirations: 24 Pulse Ox (%): 94 - Physical Exam General: Alert, In no apparent distress, Confused Respiratory: Diminished, Crackles/rales Cardiovascular: Regular rate/rhythm, Normal S1 S2, No murmurs Gastrointestinal: Normal bowel sounds, Soft and benign, Non-distended, No tende rness, Other (PEG tube) Musculoskeletal: No clubbing, No swelling, No tenderness Integumentary: Skin breakdown, Erythema Neurological: Abnormal gait, Abnormal strength Lymphatics: No axilla or inguinal lymphadenopathy - Studies Medications List Reviewed: Yes Assessment & Plan - Problems (Diagnosis) (1) Aspiration pneumonia Current Visit: Yes Status: Acute (2) Acute lung injury Current Visit: Yes Status: Acute (3) Hypoalbuminemia due to protein-calorie malnutrition Current Visit: Yes Status: Acute (4) Pneumonia Current Visit: Yes Status: Acute Qualifiers: Pneumonia type: due to unspecified organism Laterality: right Lung location: upper lobe of lung Qualified Code(s): J18.9 - Pneumonia, unspecified organism (5) Acute renal failure Current Visit: No Status: Acute Qualifiers: Acute renal failure type: unspecified Qualified Code(s): N17.9 - Acute kidney failure, unspecified (6) COVID-19 Current Visit: No Status: Acute (7) Cerebral palsy Current Visit: No Status: Acute Qualifiers: Cerebral palsy type: spastic diplegic Qualified Code(s): G80.1 - Spastic diplegic cerebral palsy (8) Depression Current Visit: No Status: Acute Qualifiers: Depression Type: major depressive disorder Active/Remission status: currently active Psychotic features: without psychotic features (9) HTN (hypertension) Current Visit: No Status: Acute Qualifiers: Hypertension type: essential hypertension Qualified Code(s): I10 - Essential (primary) hypertension (10) Anemia Current Visit: No Status: Acute Qualifiers: Iron deficiency anemia type: other iron deficiency - Plan Plan: Continue with plan of care as mentioned below 1. Continue with IV abx x 4 more days 2. Aspiration precautions 3. Continue with PEG tube feedings; protein supplementation 4. DNR status 5. Family considering hospice care; will have further discussions and have case management send them information from hospice [employer]. 6. Tolerating oxygen on at 2 L; continue to wean down 7. Cont scopolamine patch q72h for increased secretions. 8. Monitor heart rate 9. Benzocaine for toothache 10. GI and DVT prophylaxis Discharge Plan: Home Plan to discharge in: Greater than 2 days - Advance Directives Does patient have a Living Will: No Does patient have a Durable POA for Healthcare: Yes - Code Status/Comfort Care Code Status: Do Not Attempt Resuscitat Critical Care: No Time Spent Managing PTS Care (In Minutes): 30
[2020-11-13 12:00] LABS: Basophils % 0.1 % (0-1.3); Hematocrit 28.7 % (39.6-49.0); Lymphocytes % 8.7 % (15.3-44.8); MPV 9.6 fL (7.6-11.3)
[2020-11-13 12:16] LABS: Magnesium 2.4 mg/dL (1.8-2.4); Phosphorus 2.6 mg/dL (2.5-4.9); Potassium 4.9 mmol/L (3.5-5.1)
--- NOTE | 2020-11-13 12:39 | RAD REPORT ---
EXAM DESCRIPTION: RAD - Chest Single View - 11/13/2020 10:51 am CLINICAL HISTORY: pneumonia/questionable pneumothorax Chest pain. COMPARISON: Chest Single View dated 11/12/2020; Chest Single View dated 11/08/2020; Chest Single View dated 11/07/2020; Chest Single View dated 11/06/2020 FINDINGS: Portable technique limits examination quality. Bilateral interstitial lung opacities are present, slightly greater on the right, likely representing interstitial pneumonia. No measurable pneumothorax. The heart is upper limit normal in size.
[2020-11-13 18:04] LABS: Blood Morphology Comment NOT SEEN (NOT SEEN); Platelet Estimate ADEQ; White Blood Cell Scan OK (OK)
[2020-11-14] MEDS: Meropenem 1,000 MG in NA CHLORIDE 0.9% 100 ML IV SCH ×3 (00:57→16:00)
[2020-11-14] MEDS: D5W 1,000 ML IV SCH ×3 (00:57→14:17)
[2020-11-14] MEDS: ALBUTEROL 2.5 MG/3 ML NEB SOL NEB SCH ×4 (02:40→20:00)
[2020-11-14] MEDS: IPRATROPIUM BROM 0.5MG/2.5ML NEB SCH ×4 (02:40→20:00)
[2020-11-14 04:58] LABS: Absolute Lymphocytes (CBC) 1.6 K/uL (0.7-4.9); Hematocrit 30.7 % (39.6-49.0); Lymphocytes % 6.9 % (15.3-44.8); MPV 9.8 fL (7.6-11.3)
[2020-11-14 05:33] LABS: Blood Morphology Comment NOT SEEN (NOT SEEN); Platelet Estimate ADEQ
[2020-11-14] MEDS: SERTRALINE HCL 50 MG TAB FT SCH (08:11)
[2020-11-14] MEDS: predniSONE 20 MG TAB PO SCH (08:11)
[2020-11-14] MEDS: DOCUSATE NA 100 MG CAP PO SCH (08:11)
[2020-11-14] MEDS: JEVITY 1.5 CAL LIQUID 1,000 ML BOT FT SCH ×4 (08:11→21:00)
[2020-11-14] MEDS: JUVEN PACKET PO SCH ×3 (08:12→21:00)
--- NOTE | 2020-11-14 15:57 | P.PN ---
Subjective Date of Service: 11/14/20 Primary Care Provider: None, Previously Dr. Cline Chief Complaint: Respiratory failure Physical Examination - Vital Signs Temperature: 98.3 F Blood Pressure: 123/59 Pulse: 74 Respirations: 18 Pulse Ox (%): 95 - Physical Exam General: Alert HEENT: Atraumatic Neck: Supple Respiratory: Clear to auscultation bilaterally, Normal air movement Cardiovascular: Normal pulses, Regular rate/rhythm Neurological: Normal speech, Normal tone - Studies Medications List Reviewed: Yes Assessment & Plan Discharge Plan: Jail Plan to discharge in: 24 Hours Physician Review Additional Text: Assessment & Plan - Problems (Diagnosis) (1) Aspiration pneumonia Current Visit: Yes Status: Acute (2) Acute lung injury Current Visit: Yes Status: Acute (3) Hypoalbuminemia due to protein-calorie malnutrition Current Visit: Yes Status: Acute (4) Pneumonia Current Visit: Yes Status: Acute Qualifiers: Pneumonia type: due to unspecified organism Laterality: right Lung location: upper lobe of lung Qualified Code(s): J18.9 - Pneumonia, unspecified organism (5) Acute renal failure Current Visit: No Status: Acute Qualifiers: Acute renal failure type: unspecified Qualified Code(s): N17.9 - Acute kidney failure, unspecified (6) COVID-19 Current Visit: No Status: Acute (7) Cerebral palsy Current Visit: No Status: Acute Qualifiers: Cerebral palsy type: spastic diplegic Qualified Code(s): G80.1 - Spastic diplegic cerebral palsy (8) Depression Current Visit: No Status: Acute Qualifiers: Depression Type: major depressive disorder Active/Remission status: currently active Psychotic features: without psychotic features (9) HTN (hypertension) Current Visit: No Status: Acute Qualifiers: Hypertension type: essential hypertension Qualified Code(s): I10 - Essential (primary) hypertension (10) Anemia Current Visit: No Status: Acute Qualifiers: Iron deficiency anemia type: other iron deficiency - Plan Plan: Continue with plan of care as mentioned below 1. Cultures reviewed. He will need IV abx x 10 more days based on Blood culture which was negative on Nov 10. 2. Aspiration precautions 3. Continue with PEG tube feedings; protein supplementation 4. DNR status 5. Family pursue hospice after treatment of infection. Advance care planning addressed-30 min 6. Tolerating oxygen on at 2 L; continue to wean down 7. Cont scopolamine patch q72h for increased secretions. 8. Monitor heart rate 9. Benzocaine for toothache 10. GI and DVT prophylaxis 11. Will adjust oral steroid. Discontinue IV fluids. Time Spent Managing Pts Care (In Minutes): 55
[2020-11-14] MEDS ORDERED: ENOXAPARIN 30 MG/0.3 ML SQ SCH (17:00)
[2020-11-14] MEDS: ATORVASTATIN 10 MG TAB FT SCH ×2 (21:00→21:26)
[2020-11-14] MEDS ORDERED: FLUTICASONE 50MCG NASAL SPRAY NAS SCH (21:00)
[2020-11-14] MEDS ORDERED: APIXABAN 2.5 MG TABLET FT SCH (21:00)
[2020-11-14] MEDS: ASCORBIC ACID 500 MG TABLET FT SCH ×2 (21:00→21:26)
[2020-11-14] MEDS ORDERED: HOME MED 1 EA UNK (Simvastatin [Simvastatin] 20 MG Tablet) FT SCH ×2 (21:00)
[2020-11-14] MEDS: predniSONE 10 MG TAB PO SCH ×2 (21:00→21:26)
--- NOTE | 2020-11-14 22:16 | P.DS ---
Admission Date: 11/03/20 Discharge Date: 11/14/20 Primary Care Provider: None, Previously Dr. Cline Reason for Admission: Respiratory failure Consultations: Pulmonology- Dr. Rowe Procedures: CXR FINDINGS: Portable technique limits examination quality. Bilateral interstitial lung opacities are present, slightly greater on the right, likely representing interstitial pneumonia. No measurable pneumothorax. The heart is upper limit normal in size. Medical problem list Aspiration pneumonia with septic shock Severe dehydration complicated by dysphagia with PEG tube use Malnutrition GERD Hypertension Cerebral palsy Brief History of Present Illness: 65-year-old male with history of cerebral palsy, GERD, hyperlipidemia, hypertension, dysphagia with PEG tube placement presents emergency department for respiratory distress. EMS was called to group home as patient was tachypneic with respiratory rate around 41, hypoxic with saturations around 86% even on 4 L per nasal cannula and hypotensive with blood pressure 78/55. Patient was at his baseline mental status around A/O 1-2. Patient was admitted approximately 4 months ago for Quintero virus. Labs in the emergency department suggest severe dehydration sodium 157, creatinine 3.58, GFR 17 baseline GFR is around 50. Lactic acid 7.4 C-reactive protein 148 pro calcitonin 2.17 white blood cell count 10 with left shift, hemoglobin 11.2 hematocrit 36. Urine dip negative for signs of infection 8% band count chest x-ray reveals asymmetric pulmonary opacities greater on the left. As patient is critically ill. His power of commonwealth attorney was called and made aware of his condition, currently patient is DNR and family does wish to respect this at this time. Opting for comfort measures and treatment of underlying infection, fluids without central line, vasopressors, intubation. Patient appears cachectic, ill. Will admit for further evaluation and management. Hospital Course: Patient was admitted for septic shock secondary to pneumonia. Patient had a prolonged hospitalization with aggressive IV antibiotic therapy, fluid resuscitation and rehydration. Patient was DNR status throughout, patient's brother Adrien had been working with the hospitalist team to arrange for transfer back to [facility] likely with hospice as it was likely that the patient would develop recurrent aspiration pneumonia given his mental status and dysphagia. This evening nursing staff called to notify me that the patient had some coffee-ground emesis. After episode of coffee-ground emesis patient patient soon after became apneic and lost his pulse. Patient at 9:54 p.m. on 11/14/2020. Called brother Adrien to notify him of his brothers passing. March he rest in peace. <Jeremy Johnson - Last Filed: 11/14/20 22:10> Admission Date: 11/03/20 Discharge Date: 11/15/20 Procedures: Final diagnosis: Septic shock secondary to aspiration pneumonia with acute respiratory failure complicated with bacteremia-culture positive for ESBL-Proteus Coffee-ground emesis suspect acute anemia etiology unknown likely acute blood- loss anemia Severe protein malnutrition with dehydration complicated with dysphagia and PEG tube GERD Hypertension Cerebral palsy Patient DNR Events discussed with nurse practitioner. Patient . nurse practitioner spoke to family. <Dez Winn - Last Filed: 11/15/20 15:30> Disposition: Discharge Condition: Vital Signs/Physical Exam: Temp Pulse Resp BP Pulse Ox 98.3 F 74 18 123/59 L 95 11/14/20 16:00 11/14/20 16:00 11/14/20 16:00 11/14/20 16:00 11/14/20 16:00 General: Unresponsive HEENT: Other (Pupils fixed, dilated) Neck: Other (No carotid pulse palpable) Respiratory: Other (Apneic) Cardiovascular: Other (No heart sounds on exam) Laboratory Data at Discharge: WBC 23.5 K/uL (4.3-10.9) H* 11/14/20 04:14 Hgb 9.6 g/dL (13.6-17.9) L 11/14/20 04:14 Hct 30.7 % (39.6-49.0) L 11/14/20 04:14 Plt Count 292 K/uL (152-406) 11/14/20 04:14 PT 16.1 SECONDS (9.5-12.5) H 11/03/20 14:50 INR 1.37 11/03/20 14:50 APTT 28.1 SECONDS (24.3-36.9) 11/03/20 14:50 Sodium 143 mmol/L (136-145) 11/13/20 11:29 Potassium 4.9 mmol/L (3.5-5.1) 11/13/20 11:29 BUN 108 mg/dL (7-18) H 11/13/20 11:29 Creatinine 1.17 mg/dL (0.55-1.3) 11/13/20 11:29 Glucose 118 mg/dL (74-106) H 11/13/20 11:29 Phosphorus 2.6 mg/dL (2.5-4.9) 11/13/20 11:29 Magnesium 2.4 mg/dL (1.8-2.4) 11/13/20 11:29 Total Bilirubin 0.3 mg/dL (0.2-1.0) 11/09/20 05:46 AST 54 U/L (15-37) H 11/09/20 05:46 ALT 44 U/L (12-78) 11/09/20 05:46 Alkaline Phosphatase 141 U/L (45-117) H 11/09/20 05:46 Amylase 121 U/L (25-115) H 11/03/20 14:50 Lipase 301 U/L (73-393) 11/03/20 14:50 <Jeremy Johnson - Last Filed: 11/14/20 22:10> Vital Signs/Physical Exam: Temp Pulse Resp BP Pulse Ox 97.5 F 106 H 20 107/73 95 11/14/20 20:00 11/14/20 20:00 11/14/20 20:00 11/14/20 20:00 11/14/20 20:00 Laboratory Data at Discharge: WBC Cancelled 11/15/20 05:00 Hgb Cancelled 11/15/20 05:00 Hct Cancelled 11/15/20 05:00 Plt Count Cancelled 11/15/20 05:00 PT 16.1 SECONDS (9.5-12.5) H 11/03/20 14:50 INR 1.37 11/03/20 14:50 APTT 28.1 SECONDS (24.3-36.9) 11/03/20 14:50 Sodium Cancelled 11/15/20 05:00 Potassium Cancelled 11/15/20 05:00 BUN Cancelled 11/15/20 05:00 Creatinine Cancelled 11/15/20 05:00 Glucose Cancelled 11/15/20 05:00 Phosphorus 2.6 mg/dL (2.5-4.9) 11/13/20 11:29 Magnesium 2.4 mg/dL (1.8-2.4) 11/13/20 11:29 Total Bilirubin 0.3 mg/dL (0.2-1.0) 11/09/20 05:46 AST 54 U/L (15-37) H 11/09/20 05:46 ALT 44 U/L (12-78) 11/09/20 05:46 Alkaline Phosphatase 141 U/L (45-117) H 11/09/20 05:46 Amylase 121 U/L (25-115) H 11/03/20 14:50 Lipase 301 U/L (73-393) 11/03/20 14:50 <Dez Winn - Last Filed: 11/15/20 15:30> Patient Discharge Instructions: May he rest in peace Time spent managing pt's care (in minutes): 30 <Jeremy Johnson - Last Filed: 11/14/20 22:10> <Dez Winn - Last Filed: 11/15/20 15:30> Home Medications: Acetaminophen [Tylenol] 650 mg FT Q6HP PRN 09/02/20 Ascorbic Acid [C-500] 500 mg FT BID 09/02/20 Aspirin Chewable [Aspirin Chewable*] 81 mg FT DAILY 09/02/20 Lidocaine 4% Patch [Lidoderm 5% Patch*] 1 patch TOP DAILY 09/02/20 Multivitamin [Multiple Vitamins] 1 tab FT DAILY 09/02/20 Ondansetron [Zofran (Odt)*] 4 mg FT Q6HP PRN 09/02/20 Simvastatin 20 mg FT BEDTIME 09/02/20 traMADol HCL [Ultram*] 50 mg FT Q8HP PRN 09/02/20 Loratadine [Claritin] 10 mg FT DAILY 09/15/20 Sertraline [Zoloft] 50 mg FT DAILY 10/08/20 Apixaban [Eliquis] 2.5 mg FT BID 11/03/20 Arginine/Ascorbate Sod/David AC [Arginaid Powder] 1 each FT BID 11/03/20 Docusate Sodium 100 mg FT DAILY 11/03/20 Fluticasone [Flonase 50MCG Nasal [place]*] 2 spray NS BEDTIME 11/03/20 Jevity 1.5 Dave [Jevity 1.5 Dave*] 240 ml FT TID 11/03/20 Metoclopramide HCl [Reglan] 10 mg FT AC 12/24/20 Zinc 4 tab FT BID 11/03/20 Followup: Unknown,U [Primary Care Provider] -
[2020-11-14 22:24] VITALS: BP 107/73; TEMP 97.5
[2020-11-15] VITALS: O2SAT 95
== END 2020-11-14 21:54 | disposition expired | DRG 871 ==
LOC: ER 13:21 → ERHOLD 18:13 → 2ND 20:32
PROVIDERS: ADMIT Internal Medicine Sleep Medicine; ATTEND Family Medicine
PROC: 30233N1 Transfusion of Nonautologous Red Blood Cells into Peripheral Vein, Percutaneous Approach (ICD-10-PCS; principal; 2020-11-04)
PROC: 5A09557 Assistance with Respiratory Ventilation, Greater than 96 Consecutive Hours, Continuous Positive Airway Pressure (ICD-10-PCS; 2020-11-08)
DX: A41.9 Sepsis, unspecified organism (principal); J69.0 Pneumonitis due to inhalation of food and vomit; R65.21 Severe sepsis with septic shock; J96.00 Acute respiratory failure, unspecified whether with hypoxia or hypercapnia; Z68.1 Body mass index [BMI] 19.9 or less, adult; N17.9 Acute kidney failure, unspecified; E87.0 Hyperosmolality and hypernatremia; S27.309A Unspecified injury of lung, unspecified, initial encounter; G80.1 Spastic diplegic cerebral palsy; Z16.12 Extended spectrum beta lactamase (ESBL) resistance; D62 Acute posthemorrhagic anemia; E44.0 Moderate protein-calorie malnutrition; D50.9 Iron deficiency anemia, unspecified; F32.9 Major depressive disorder, single episode, unspecified; E88.09 Other disorders of plasma-protein metabolism, not elsewhere classified; K21.9 Gastro-esophageal reflux disease without esophagitis; E78.5 Hyperlipidemia, unspecified; I10 Essential (primary) hypertension; E86.0 Dehydration; B96.4 Proteus (mirabilis) (morganii) as the cause of diseases classified elsewhere; Z66 Do not resuscitate; Z79.82 Long term (current) use of aspirin; Z79.01 Long term (current) use of anticoagulants; Z20.822 Contact with and (suspected) exposure to COVID-19; Z79.899 Other long term (current) drug therapy; Z93.1 Gastrostomy status; Z86.16 Personal history of COVID-19
CPT/HCPCS: 36415; 51702; 71045; 80048; 80053; 80076; 80202; 81003; 81015; 82150; 82533; 82550; 82553; 82728; 82947; 83605; 83690; 83735; 83880; 84100; 84145; 84439; 84443; 84484; 85014; 85018; 85025; 85379; 85610; 85730; 86140; 86850; 86900; 86901; 87040; 87070; 87077; 87081; 87186; 87205; 87804; 93005; 94003; 94640; 94660; 99291; 99292; J0692; J1100; J1644; J1650; J1940; J2185; J2930; J3370; J3480; J7030; J7040; J7050; J7512; P9016; P9047; U0003